=== PATIENT | female | born 1990 | race Caucasian/White ===

== ENCOUNTER → 2019-05-13 11:57 | Outpatient (CLI) | payer OTHER, SELFPAY ==
[2017-02-22 16:59] VITALS: BMI 28.5
[2019-05-13 14:23] LABS: Color, Urine Yellow (Yellow); Glucose, Dipstick Normal (Normal); Ketone-Dipstick Negative (Negative); Leukocyte Esterase-Dipstick Negative /ul (Negative); Nitrite-Dipstick Negative (Negative); Occult Blood-Urine Negative /ul (Negative); Protein-Dipstick Negative (Negative); Urine Bilirubin Dipstick Negative (Negative); Urine Clarity Clear (Clear); Urine Urobilinogen Normal (Normal)
[2019-05-13 14:29] LABS: COTININE Drug Screen Negative (<200 ng/mL)
[2019-05-13 14:30] LABS: Amphetamine Urine VISTA NEGATIVE (<1000 ng/mL); Barbiturate Urine VISTA NEGATIVE (< 200 ng/mL); Benzodiazepine Urine VISTA NEGATIVE (< 200 ng/mL); Cocaine Urine VISTA NEGATIVE (< 300 ng/mL); Ecstacy Urine VISTA NEGATIVE (< 500 ng/mL); Methadone Urine VISTA NEGATIVE (< 300 ng/mL); PCP Urine VISTA NEGATIVE (< 25 ng/mL); THC Urine VISTA NEGATIVE (< 50 ng/mL); Vista UDS pH Range 6
[2019-05-13 14:32] LABS: Absolute Lymphocyte Count 2.97 X10^3/uL (0.83-4.51); Absolute Neutrophil Count 7.2 X10^3/uL (2.0-7.7); Basophil# 0.03 X10^3/uL; Basophil% 0.3 % (0-1); Eosinophil# 0.03 X10^3/uL; Eosinophils% 0.3 % (0-5); Hematocrit 43.3 % (37-47); Hemoglobin 14.4 g/dL (12.0-15.0); Lymphocyte # 2.97 X10^3/ul (4.0); Lymphocyte % 27.4 % (19-41); Mean Corp Hgb Conc 33.3 g/dL (32-36); Mean Corpuscular Hgb 28.9 pg (27.0-32.0); Mean Corpuscular Volume 86.9 fL (81-99); Mean Platelet Vol. 11.2 fl (6.2-12.0); Monocyte# 0.56 X10^3/uL; Monocyte% 5.2 % (0-10); NRBC Flagged by Analyzer 0 % (0-5); Neutrophil # 7.21 X10^3/uL (2.7-7.7); Neutrophil % 66.4 % (47-70); Platelet Count 276 K/mm3 (150-450); RBC Distribution Width CV 13.1 % (11.6-14.6); RBC Distribution Width SD 41.1 fl (35.1-43.9); Red Blood Count 4.98 M/mm3 (4.2-5.4); White Blood Count 10.8 K/mm3 (4.4-11.0)
[2019-05-13 14:35] LABS: Thyroid Stim Hormone (TSH) 2.74 uIU/mL (0.358-3.74); Vitamin D,25 Hydroxy 13.4 ng/mL (29.95-100.01)
[2019-05-13 15:59] LABS: Chlamydia Trachomatis by PCR Negative (Negative); Neisserai gonorrhoeae by PCR Negative (Negative); Probe Check PASS; Sample Adequacy Control PASS; Specimen Processing Control PASS
[2019-05-14 02:21] LABS: Prenatal RPR NONREACTIVE (NONREACTIVE)
[2019-05-14 11:06] LABS: HIV - WCH Non-Reactive (Nonreactive); Hepatitis B Surface Antigen Non-Reactive (Nonreactive); Hepatitis C Antibody Non-Reactive (Nonreactive); Rubella IgG 75.9 IU/mL
[2019-05-15 09:48] LABS: T4 Free Direct 1.16 ng/dL (0.76-1.46)
[2019-05-20 11:35] LABS: HPV APTIMA, High Risk Positive (Negative)
[2019-05-20 11:38] LABS: HPV Reflexed? YES, CHARGE PATIENT
== END ==
LOC: WOBLAB 11:59
PROVIDERS: Visit Provider Obstetrics & Gynecology
DX: O99.281 Endocrine, nutritional and metabolic diseases complicating pregnancy, first trimester (principal); Z3A.00 Weeks of gestation of pregnancy not specified; E03.8 Other specified hypothyroidism; Z12.4 Encounter for screening for malignant neoplasm of cervix; Z11.3 Encounter for screening for infections with a predominantly sexual mode of transmission
CPT/HCPCS: 36415; 80307; 81002; 82306; 84439; 84443; 84481; 85025; 86703; 86762; 86803; 87340; 87491; 87591; 87624; 88175; G0145

== ENCOUNTER → 2019-05-21 10:44 | Outpatient (CLI) | payer OTHER, SELFPAY ==
--- NOTE | 2019-05-21 10:49 | US_ITS ---
STUDY: ULTRASOUND BREAST - RIGHT REASON FOR EXAM: Female, 28 years old. Right breast palpable abnormality for 10 weeks. TECHNIQUE: Axial and longitudinal images of the RIGHT breast were performed with a high resolution ultrasound transducer. # OF IMAGES: 50 COMPARISON: None. FINDINGS: RIGHT Breast: There is no ultrasound abnormality in the right breast to correlate to the palpable area. All 4 quadrants were scanned. No suspicious solid or cystic masses are seen. US/Breast Complete Unilateral IMPRESSION: There is no ultrasound abnormality seen in the right breast to correlate to the palpable area. Further workup with mammography is recommended. ASSESSMENT CATEGORY: BIRADS Category 0: Incomplete. Need additional imaging evaluation. A letter regarding these results will be sent to the patient by the facility within 30 days. Electronically Signed: Mayi Zeng DO at 14:16 EST Tel , Service support ,
== END ==
PROVIDERS: Referring Provider Obstetrics & Gynecology; Visit Provider Obstetrics & Gynecology
DX: Z34.81 Encounter for supervision of other normal pregnancy, first trimester (principal); N63.11 Unspecified lump in the right breast, upper outer quadrant
CPT/HCPCS: 76641

== ENCOUNTER → 2019-10-02 11:05 | Outpatient (CLI) | payer OTHER, SELFPAY ==
[2019-10-02 11:23] LABS: Hematocrit 36.6 % (37-47); Hemoglobin 12.2 g/dL (12.0-15.0); Mean Corp Hgb Conc 33.3 g/dL (32-36); Mean Corpuscular Hgb 29.6 pg (27.0-32.0); Mean Corpuscular Volume 88.8 fL (81-99); Platelet Count 228 K/mm3 (150-450); RBC Distribution Width CV 13.3 % (11.6-14.6); RBC Distribution Width SD 43.5 fl (35.1-43.9); Red Blood Count 4.12 M/mm3 (4.2-5.4); White Blood Count 9.7 K/mm3 (4.4-11.0)
[2019-10-02 11:51] LABS: Vitamin D,25 Hydroxy 23.1 ng/mL
[2019-10-02 11:58] LABS: Free T3 2.2 pg/mL (2.18-3.98); Glucose Challenge Gest 1H 50g 81 mg/dL (70-140); T4 Free Direct 0.83 ng/dL (0.76-1.46); Thyroid Stim Hormone (TSH) 2.44 uIU/mL (0.358-3.74)
== END ==
LOC: LABSPEC 11:08
PROVIDERS: Referring Provider Obstetrics & Gynecology; Visit Provider Obstetrics & Gynecology
DX: Z34.83 Encounter for supervision of other normal pregnancy, third trimester (principal); E55.9 Vitamin D deficiency, unspecified
CPT/HCPCS: 82306; 82950; 84439; 84443; 84481; 85027

== ENCOUNTER → 2019-11-27 12:44 | Outpatient (CLI) | payer OTHER, SELFPAY ==
[2017-02-22 16:59] VITALS: BMI 28.5
--- OUTSIDE RECORDS SUMMARY | 2020-04-19 16:07 | XMS RPT_ITS | CCD ---
:1990 External Reference #:[id number] Author Organization [facility] Care Team Providers Name Role Phone Talia Lu MD Unavailable Andrea JONES, M Unavailable LIA Gómez RN, A Unavailable Unavailable Ronit Lu MD Unavailable Andrea JONES M Unavailable Allergies Reported Allergen Reaction(s) Severity Date of Onset Location Penicillins Critical, Critical 12-17-2016 - [facility] (045 24) Medications Medication Name Sig Date Prescriber Location acetaminophen / OXYCODONE-ACETAMIN 12-20-2016 [facility]ia Sa[facility] oxyCODONE OPHEN 5-325 MG MD Chiu TABS [facility] (92311) tablets by mouth every 6 hours PRN pain OXYCODONE-ACETAMIN OPHEN [id number] Talia Lu MD Clindamycin CLINDAMYCIN HCL [facility] 300 MG CAPS [facility] tablet by mouth (39206) four times daily CLINDAMYCIN HCL [id number] Talia Lu MD sulfamethoxazole / BACTRIM DS 800-160 12-25-2016 Talia reynoso [facility] Surgical trimethoprim MG TABS One tablet MD Anthony s by mouth twice (12811) daily SULFAMETHOXAZOLE-T RIMETHOPRIM [id number] Talia Lu MD BACTRIM DS 800-160 MG TABS One 12-25-2016 Talia Saenz [facility] tablet by mouth twice daily [facility] ([id number]) SULFAMETHOXAZOLE-TRIMETHOPRIM [id number] Talia Lu MD BACTRIM DS 800-160 MG TABS One 12-25-2016 Talia L [facility] tablet by mouth twice daily Ayl armstrong ([id number]) SULFAMETHOXAZOLE-TRIMETHOPRIM [id number] Talia Lu MD BACTRIM DS 800-160 MG TABS One 12-20-2016 - Talia L [facility] tablet by mouth twice daily 07-22-2017 Aly armstrong ([id number]) SULFAMETHOXAZOLE-TRIMETHOPRIM [id number] Talia Lu MD BACTRIM DS 800-160 MG TABS One 12-20-2016 - [facility] mouth twice [id number] SULFAMETHOXAZOLE-TRIMETHOPRIM [id number] Talia Lu MD BACTRIM DS 800-160 MG TABS One 12-20-2016 - [facility] mouth twice [facility]-22-2017 [id number] SULFAMETHOXAZOLE-TRIMETHOPRIM [id number] Talia Lu MD BACTRIM DS 800-160 MG TABS One 12-20-2016 - [facility] tablet by mouth twice daily 07-22-2017 [facility] ([id number][facility] SULFAMETHOXAZOLE-TRIMETHOPRIM [id number] Talia Lu MD BACTRIM DS 800-160 MG TABS One 12-20-2016 - [facility] tablet by mouth twice daily 07-22-2017 [facility] ([id number][facility] SULFAMETHOXAZOLE-TRIMETHOPRIM [id number] Talia Lu MD BACTRIM DS 800-160 MG TABS One 12-20-2016 - [facility] tablet by mouth twice daily 07-22-2017 [facility] ([id number][facility] SULFAMETHOXAZOLE-TRIMETHOPRIM [id number] Talia Lu MD BACTRIM DS 800-160 MG TABS One 12-20-2016 - [facility] tablet by mouth twice daily 07-22-2017 [facility] ([id number]) SULFAMETHOXAZOLE-TRIMETHOPRIM [id number] Talia Lu MD Problems Active Problems Category Problem Name Status Date Location Other nutritional; Overweight Active 12-17-2016 - [facility] endocrine; and metabolic (30 053) disorders Past or Other Problems Category Problem Name Status Date Location Bacterial infection Methicillin resistant Completed 12-20-2016 [facility] Staphylococcus aureus Associ at[facility] (80176) infection Deficiency and other Anemia Completed 12-17-2016 - [facility]by [facility] (942 09) Skin and subcutaneous Abscess Completed 12-17-2016 [facility] Morales rgical tissue infections [facility] ([id number]) Results Result Name Value Range Unit Interpretation Flag Date Location progress on 2019-12 PROGRESS HNO ID: [id number] Normal 12-13-2019 [facility] Author: Brody (Hoang) Loree Mobile ([id number]) Service: ? Author Type: Nurse Practitioner Type: Progress Notes Filed: 12/13/2019 3:52 PM Note Text: Subjective HPI Nontoxic appearing female presents urgent care with a chief complaint of ear pain. Duration of symptoms 2 days. Associated symptoms l eft ear pain and decreased hearing. History of cerumen impaction past. Pa tient denies any recent sick contacts. Patient states last ear is painful 3 out of 10 pain. Patient denies any trauma. Patient denies any chest pa in, pleuritic pain, headache, fevers, visual changes, chest pain , shortness breath, abdominal pain, trismus, sore throat, or change in b owel or bladder habits. Patient is 39 weeks . BP 102/64 Pulse 96 Temp 36.2 ?C (97.2 ?F) (Left Tympanic ) Resp 16 Wt 98.7 kg (217 lb 9.6 oz) LMP 06/26/2017 .Patient presents with: Ear Problem: LEFT ear pain x 2 days PAST MEDICAL HISTORY Diagnosis Date - H/O chlamydia infection 10/19 Treated - PMH - PAST MEDICAL HISTORY OF 02/09/1998 Color Vision - Normal PAST SURGICAL HISTORY Procedure Laterality Date - TONSILLECTOMY HX ALLERGIES Penicillins MEDICATIONS butalb/acetaminophen/caffeine (FIORICET ORAL) Take 1 capsule by mouth every 4 hours. albuterol HFA (PROVENTIL HFA, VENTOLIN HFA) 90 mcg/actuation inhaler Inhale 2 Puffs as instructed every 4 hours as needed. carbamide peroxide (DEBROX) 6.5 % otic solution Use 5 Drops in both ears twice daily. VIT/IRON FUM/FOLIC AC ( 07/08 ORAL) Take by edgardo henriquez. FAMILY HISTORY Problem Relation Age of Onset - Cancer Maternal Grandmother breast and bone - other (Multiple Sclerosis [Other]) Maternal Grandfather - other (Hepatitis C [Other]) Father - other (Liver Transplant [Other]) Unknown half-sister for autoimmune hepatitis Social History Tobacco Use - Smoking status: Former Smoker Last attempt to quit: 02/14/2016 Years since quittin.8 - Smokeless tobacco: Never Used Substance Use Topics - Alcohol use: Yes Alcohol/week: 7.5 standard drinks Types: 3 Cans of Beer (12oz) per week - Drug use: No Review of Systems Constitutional: Negative for chills, fever and malaise/fatig ue. HENT: Positive for hearing loss. Negative for congestion, ea r discharge, ear pain, sinus pain and sore throat. Eyes: Negative for blurred vision, double vision and photoph obia. Respiratory: Negative for cough, sputum production, shortnes s of breath and wheezing. Cardiovascular: Negative for chest pain. Gastrointestinal: Negative for abdominal pain, nausea and vo miting. Genitourinary: Negative. Musculoskeletal: Negative for myalgias. Skin: Negative for itching and rash. Neurological: Negative for dizziness and headaches. Objective Physical Exam Constitutional: She is oriented to person, place, and time a nd well-developed, well-nourished, and in no distress. No distr ess. HENT: Head: Normocephalic and atraumatic. Right Ear: Hearing, external ear and ear canal normal. No dr fox, swelling or tenderness. No mastoid tenderness. No decreased hearing is noted. Left Ear: Hearing, tympanic membrane, external ear and ear c anal normal. No drainage, swelling or tenderness. No mastoid tenderness. Tympanic membrane is not perforated, not erythematous and not bulging . No decreased hearing is noted. Mouth/Throat: Uvula is midline. No trismus in the jaw. No uv lincoln swelling. No oropharyngeal exudate, posterior oropharyngeal edema, pos terior oropharyngeal erythema or tonsillar abscesses. Unable to fully visualize right tympanic membrane due to cer umen impaction. Large amount of cerumen retrieved from left ear c anal with ear curet. Tympanic membrane pearly romero nonperforated. No eryth matthew edema noted. Eyes: Pupils are equal, round, and reactive to light. Conjun ctivae are normal. Right eye exhibits no discharge. Left eye exhibits n o discharge. Neck: Normal range of motion. Neck supple. Cardiovascular: Normal rate, regular rhythm and normal heart sounds. Pulmonary/Chest: Effort normal and breath sounds normal. No accessory muscle usage. No tachypnea. No respiratory distress. She has no wheezes. She has no rales. She exhibits no tenderness. Abdominal: Soft. There is no abdominal tenderness. Musculoskeletal: Normal range of motion. General: No tenderness. Lymphadenopathy: Head (right side): No submental, no submandibular, no tonsil lar, no preauricular, no posterior auricular and no occipital adenop athy present. Head (left side): No submental, no submandibular, no tonsill ar, no preauricular, no posterior auricular and no occipital adenop athy present. She has no cervical adenopathy. Right cervical: No superficial cervical and no posterior cer vical adenopathy present. Left cervical: No superficial cervical and no posterior cerv ical adenopathy present. Neurological: She is alert and oriented to person, place, an d time. Skin: Skin is warm and dry. No rash noted. She is not diapho retic. Nursing note and vitals reviewed. ASSESSMENT/PLAN: 1. Hearing loss due to cerumen impaction, left - ICD9: 389.8 , 380.4, ICD10: H61.22 Large amount of cerumen was retrieved with ear curette from left ear. Patient tolerated procedure well. Patient denied any residua l pain. Patient states spontaneous improvement hearing. Cerumen was hard in nature. Right ear does need irrigated however patient will u se ear wax softening drops prior to this procedure being completed. Frances pedraza was instructed to use ear wax softening drops return in 1 week f or irrigation. Patient was educated on supportive therapies. Patient will f ollow up with primary care provider as needed. Patient was instructed to i mmediately proceed to emergency room for any new, worsening, or symptom s lasting longer than anticipated. The patient's clinical presentation is otherwise unremarkable at this time. Based on exam and clinical findin g, the patient is stable for discharge. Plan of care was discussed with frances pedraza. Patient verbalizes understanding and agrees to plan of care. This no te was generated using The Influence software. It may contain errors in wo rding, punctuation, or spelling. Broyd Ralph APRN.HOANG cnov on 2019-12-13 CNOV Office Visit ([facility]) Normal 12-13-19 Mobile SHAYY Evangelista ([id number]) 1990 [facility] Date Time Provider Department ([id number]) 12/13/19 3:45 PM BRODY RALPH (HOANG) WS During your visit today, we recorded the following informati on about you: Temperature Pulse Respiration Blood pressure 97.2 degrees 96/minute 16/minute 102/64 Weight 98.7 kg Brody Ralph APRN.CNP 12/13/2019 3:52 PM Signed Subjective HPI Nontoxic appearing female presents urgent care with a chief complaint of ear pain. Duration of symptoms 2 days. Associated symptoms left ear pain and decreased hearing. History of cerumen impaction past. Patien t denies any recent sick contacts. Patient states last ear is painful 3 o ut of 10 pain. Patient denies any trauma. Patient denies any chest pain, pl euritic pain, headache, fevers, visual adi nges, chest pain, shortness breath, abdominal pain, trismus, sore throat, or change in bowel or bladder habits. Patient is 39 weeks . BP 102/64 Pulse 96 Temp 36.2 ?C (97.2 ?F) (Left Tympanic ) Resp 16 Wt 98.7 kg (217 lb 9.6 oz) LMP 06/26/2017 .Patient presents with: Ear Problem: LEFT ear pain x 2 days PAST MEDICAL HISTORY Diagnosis Date - H/O chlamydia infection 10/19 Treated - PMH - PAST MEDICAL HISTORY OF 02/09/1998 Color Vision - Normal PAST SURGICAL HISTORY Procedure Laterality Date - TONSILLECTOMY HX ALLERGIES Penicillins MEDICATIONS butalb/acetaminophen/caffeine (FIORICET ORAL) Ta ke 1 capsule by mouth every 4 hours. albuterol HFA (PROVENTIL HFA, VENTOLIN HFA) 90 m cg/actuation inhaler Inhale 2 Puffs as instructed every 4 hours as needed. carbamide peroxide (DEBROX) 6.5 % otic s olution Use 5 Drops in both ears twice daily. VIT/IRON FUM/FOLIC AC ( 07/08 ORAL) Take by edgardo henriquez. FAMILY HISTORY Problem Relation Age of Onset - Cancer Maternal Grandmother breast and bone - other (Multiple Sclerosis [Other]) Maternal Grandfather - other (Hepatitis C [Other]) Father - other (Liver Transplant [Other]) Unknown half-sister for autoimmune hepatitis Social History Tobacco Use - Smoking status: Former Smoker Last attempt to quit: 02/14/2016 Years since quittin.8 - Smokeless tobacco: Never Used Substance Use Topics - Alcohol use: Yes Alcohol/week: 7.5 standard drinks Types: 3 Cans of Beer (12oz) per week - Drug use: No Review of Systems Constitutional: Negative for chills, fever and malaise/fatig ue. HENT: Positive for hearing loss. Negative for congesti on, ear discharge, ear pain, sinus pain and sore throat. Eyes: Negative for blurred vision, double vision and photoph obia. Respiratory: Negative for cough, sputum production, shortn ess of breath and wheezing. Cardiovascular: Negative for chest pain. Gastrointestinal: Negative for abdominal pain, nausea and vo miting. Genitourinary: Negative. Musculoskeletal: Negative for myalgias. Skin: Negative for itching and rash. Neurological: Negative for dizziness and headaches. Objective Physical Exam Constitutional: She is oriented to perso n, place, and time and well-developed, well-nourished, and in no distress. No distress. HENT: Head: Normocephalic and atraumatic. Right Ear: Hearing, external ear and ear canal normal. No drainage, swelling or tenderness. No mastoid tenderness. No decreased hearing is n oted. Left Ear: Hearing, tympanic membrane, external ear and ear canal normal. No drainage, swelling or tenderness. No mastoid ten derness. Tympanic membrane is not perforated, not erythematous and not bulging. No decreas ed hearing is noted. Mouth/Throat: Uvula is midline. No trismus in the jaw. No uvula swelling. No oropharyngeal exudate, posterior oropharyngeal e king, posterior oropharyngeal erythema or tonsillar abscesses. Unable to fully visualize right tympanic membrane due to c erumen impaction. Large amount of cerumen retrieved from l eft ear canal with ear curet. Tympanic membrane pearly romero nonperforated. No erythema edema noted. Eyes: Pupils are equal, round, and react hevaenly to light. Conjunctivae are normal. Right eye exhibits no discharge. Left eye exhibits no discha rge. Neck: Normal range of motion. Neck supple. Cardiovascular: Normal rate, regular rhythm and normal heart sounds. Pulmonary/Chest: Effort normal and breath sounds evelin l. No accessory muscle usage. No tachypnea. No respiratory distress. She has no wheezes. She has no rales. She exhibits no tenderness. Abdominal: Soft. There is no abdominal tenderness. Musculoskeletal: Normal range of motion. General: No tenderness. Lymphadenopathy: Head (right side): No submental, no submandibular, no tonsil lar, no preauricular, no posterior auricular and no occipital adenop athy present. Head (left side): No submental, no submandibular, no tonsill ar, no preauricular, no posterior auricular and no occipital adenop athy present. She has no cervical adenopathy. Right cervical: No superficial cervical and no posterior cer vical adenopathy present. Left cervical: No superficial cervical and no posterior cerv ical adenopathy present. Neurological: She is alert and oriented to person, place, an d time. Skin: Skin is warm and dry. No rash noted. She is not diapho retic. Nursing note and vitals reviewed. ASSESSMENT/PLAN: 1. Hearing loss due to cerumen impaction, left - ICD9: 389 .8, 380.4, ICD10: H61.22 Large amount of cerumen was retrieved with ear c urette from left ear. Patient tolerated procedure well. Patient denied any residual pain. Patient states spontaneous improvement hearing. Cerumen was hard in natur e. Right ear does need irrigated however patient will use ear wax softening drops prior to this procedure being completed. Patient was instructed to use ear wax softening drops return in 1 week for irrigation. Patient was educated on supportive therapies. Patient will foll ow up with primary care provider as needed. Patient was instructed to immediatel y proceed to emergency room for any new, worsening, or symptoms lasting longer than anticipated. The patient's c linical presentation is otherwise un remarkable at this time. Based on exam and clinical finding, the patient is stable for discharge. Pl an of care was discussed with patient. Patient verbalizes understanding and agrees to plan of care. This note was generated using The Influence software. It may contain errors i n wording, punctuation, or spelling. Brody Ralph APRN.HOANG Referring Provider: SELF [[id number]] Allergies As of Date: 12/13/2019 Noted Allergy Reaction PENICILLINS 12/25/2005 4 - Hives Date Reviewed: 12/13/2019 Reviewed by: Ayaka Garcia Ma - Fully Assessed Reason for Visit: Ear Problem [38] Cmt: LEFT ear pain x 2 days Primary Visit Diagnosis:Hearing loss due to cerumen im paction, left [H61.22] Prescriptions as of 12/13/2019 Sig: FIORICET ORAL Take 1 capsule by mouth every* ALBUTEROL SULFATE HFA 90 MCG/* Inhale 2 Puffs as instructed * Patient not taking: Reported on 12/13/2019 CARBAMIDE PEROXIDE 6.5 % EAR * Use 5 Drops in both ears twic * Patient not taking: Reported on 12/13/2019 07/08 ORAL Take by mouth. Problem List As Of Date 12/13/2019 Noted Resolved Chlamydia infection [A74.9] 05/24/2014 Encounter Status:Closed by BRODY RALPH APRN.CNP on progress on 2019-07 PROGRESS HNO ID: [id number] Normal 07-27-2019 [facility] Author: Ezequiel (Bethany.Hoang) LYNDSEY [place] Mobile ([id number]) Service: ? Author Type: Nurse Practitioner Type: Progress Notes Filed: 07/27/2019 1:53 PM Note Text: Chief Complaint Patient presents with: Cough: Pt seen in 07/23 for viral bronchitis, pt given muc inex and albuterol inhaler; pt is 19 wks 3 days ; pt states i s starting to feel better, fatigue has improved but still has intermittent productive cough with light yellow mucus and is being kept awake at [facility] d/t cough; pt states was exposed to bacterial pneumonia HPI Shayy Varghese is a 28 year old female who presents here t octavio for a week history of cough and chest congestion This is an unesta blished patient. No Pcp. This is a new patient to me. Denies any rec ent ER visits or hospitalizations. She was recently diagnosed as be ing and is proximate 19 weeks. Is being followed by the [facility]. Uncomplicated so far. Normal routine OB appointments to this point. States seen in 07/23 for viral bronchitis, pt given mucine x and albuterol inhaler; pt is 19 wks 3 days ; States is s tarting to feel better, fatigue has improved but still has intermittent productive cough with light yellow mucus and is being kept awake at [facility] d/t cough; pt states was exposed to bacterial pneumonia No fever or chills. Still has a cough and it is productive. No vomiting or diarrhea. No earaches. Has a history of cerumen impaction . Past medical history, appointments, medications, allergies r mauraiewed. Previous Medical History PAST MEDICAL HISTORY Diagnosis Date - H/O chlamydia infection 10/19 Treated - PMH - PAST MEDICAL HISTORY OF 02/09/1998 Color Vision - Normal Previous Surgical History PAST SURGICAL HISTORY Procedure Laterality Date - TONSILLECTOMY HX Family History FAMILY HISTORY Problem Relation Age of Onset - Cancer Maternal Grandmother breast and bone - other (Multiple Sclerosis [Other]) Maternal Grandfather - other (Hepatitis C [Other]) Father - other (Liver Transplant [Other]) Unknown half-sister for autoimmune hepatitis Patient Allergies ALLERGIES Allergen Reactions - Penicillins Hives Current Medications Current Outpatient Medications on File Prior to Visit Medication Sig - butalb/acetaminophen/caffeine (FIORICET ORAL) Take 1 capsu le by mouth every 4 hours. - albuterol HFA (PROVENTIL HFA, VENTOLIN HFA) 90 mcg/actuati on inhaler Inhale 2 Puffs as instructed every 4 hours as needed. - guaiFENesin (MUCINEX) 600 mg 12 hr tablet Take 1 tablet by mouth twice daily for 10 days. - VIT/IRON FUM/FOLIC AC ( 07/08 ORAL) Take by mouth. - carbamide peroxide (DEBROX) 6.5 % otic solution Use 5 Drop s in both ears twice daily. (Patient not taking: Reported on 07/23/2019 ) No current facility-administered medications on file prior t o visit. Social History Social History Tobacco Use - Smoking status: Former Smoker Last attempt to quit: 02/14/2016 Years since quittin.4 - Smokeless tobacco: Never Used Substance Use Topics - Alcohol use: Yes Alcohol/week: 7.5 standard drinks Types: 3 Cans of Beer (12oz) per week - Drug use: No Review of Symptoms GENERAL: No weight loss. + for malaise. No fevers HEENT: Negative for frequent headaches No eye discharge or redness No earaches or drainage No sore throat, difficulty swallowing, mouth lesions, or jere rseness, Nose POS for congestion. No nasal discharge NECK: Negative for lumps, pain or significant neck swelling RESPIRATORY: Cough; dry/wet, productive. No wheezing, SOB, D ifficulty breathing. CARDIOVASCULAR: Negative for chest pain GI: No vomiting, or diarrhea. + for nausea MUSCULOSKELETAL: Negative for muscle aches, bodyaches or kane n. SKIN: Negative for lesions, rash, and itching Neuro: No lightheadedness or dizziness EXAM: BP 112/70 Pulse 85 Temp 37 ?C (98.6 ?F) Resp 16 Wt 8 8.5 kg (195 lb) SpO2 98% General Appearance: No well appearing. Alert, in no acute di stress, well-hydrated, well nourished. Obese Skin: Skin color, texture, turgor normal, no suspicious rash es or lesions. Head: Normocephalic, no masses, lesions, tenderness or abnor malities. Eyes: Anicteric sclera. No redness or drainage. Ears: External ears normal, TM's clear on the left, adequate light reflex. TM's not bulging. Unable to visualize the right TM fully due to wax. Cerumen bilaterally, amount moderate Nose/Sinuses: Nares normal, septum midline Mucosa normal Clear nasal drainage No sinus tenderness. Oropharynx: Lips, mucosa, and tongue normal, teeth and gums normal Oropharynx reddened. Tonsils present and nonreddened. Neck: Supple Lymph Nodes: No cervical, supraclavicular, pre/post-auricula r, or submandibular lymphadenopathy Lungs: Wheezing in all lung talavera. No rhonchi, rales. Heart: RRR without murmur, gallop, or rubs. Extremities: No deformities, edema, skin discoloration, club johnny or cyanosis. Psych: Attitude - cooperative, easily engaged in conversatio n Appearance - normal, hygiene and grooming appropriate Affect - euthymic, normal mood Mental status: Alert, attentive. Speech is clear and fluent with good repetition, comprehension Coordination: There are no abnormal or extraneous movements. Gait/Stance: Posture is normal. Gait is steady with normal s teps Health Maintenance List HPV VACCINE(2 - Female 2-dose series) due on 08/16/2007 PAP TESTING due on 2013 DTAP,TDAP,TD(7 - Td) due on 02/01/2016 INFLUENZA(1) due on 03/08/2019 Data reviewed Last 5 Encounter BP Readings: Date: BP: 07/27/2019 112/70 07/23/2019 118/68 09/16/2018 112/72 01/08/2018 112/72 07/16/2017 112/70 BMI Readings from Last 5 Encounters: 02/02/08 : 26.44 kg/m? (92 %, Z= 1.40)* 02/13/07 : 24.93 kg/m? (90 %, Z= 1.28)* 01/31/06 : 22.77 kg/m? (85 %, Z= 1.03)* * Growth percentiles are based on CDC (Girls, 2-20 Years) da ta. Last 5 Encounter Wt Readings: Date: Wt: 07/27/2019 88.5 kg (195 lb) 07/23/2019 89.4 kg (197 lb) 09/16/2018 91.4 kg (201 lb 9.6 oz) 01/08/2018 88 kg (194 lb) 07/16/2017 84.4 kg (186 lb) Medication and allergy list reviewed, reconciled and updated . ASSESSMENT/PLAN: 1. Acute bronchitis, unspecified organism - ICD9: 466.0, ICD 10: J20.9 (primary diagnosis) Acute bronchitis versus community acquired pneumonia Given she's unable to complete a chest x-ray today. Clinically diagnose and treat empirically She has allergy to penicillins but has tolerated Omnicef Treat with Omnicef for 10 days. May continue to use albuterol inhaler as needed. Self Care instructions: Avoid irritants in the air. Avoid chemicals, fumes, and dust . Gargle with mouthwash or warm salt water as directed. Suck on throat lozenges or hard candy. Use a cold or warm vaporizer or humidifier to ease your jono thing. Rest for at least 2 days and then as needed to decrease tire dness and weakness. Use petroleum based jelly around your nostrils to decrease i rritation from blowing your nose. acetaminophen help to bring down a fever or decrease pain. Patient is educated and informed to expect progressive impro vement over the next 3-7 days. Patient should return to clinic or seek c are in the emergency room for the following: Fever over 100.5 but does not reduce with antipyretics, inability to tolerate oral fluids, persis tent nausea vomiting and/or diarrhea, shaking chills or rigors, lighthea dedness or dizziness, inability to maintain fluid hydration, or any oth er concerns of worsening condition. Patient verbalizes understanding. - CEFDINIR 300 MG CAPSULE 2. Cough - ICD9: 786.2, ICD10: R05 Plan as in #1 - CEFDINIR 300 MG CAPSULE 3. 19 weeks gestation of - ICD9: V22.2, ICD10: Z3A .19 Continue with routine OB appointments. Ezequiel Adair DNP.HOANG This note was completed with Song[employer] dictation software. Note was reviewed for accuracy. There may be minor misspellings or gr ammar miscues with Songtr[employer] Dictation. Allei [facility] [phone] cnov on 2019-07-27 CNOV Office Visit (FAMPWS) Normal 07-27-[address] [place] [address] [facility] SHAYY VARGHESE ([id number]) 1990 [facility] Date Time Provider Department ([id number]) 07/27/19 11:40 AM EZEQUIEL ADAIR (BETHANY.[employer]) FAMPWS During your visit today, we recorded the following informati on about you: Temperature Pulse Respiration Blood pressure 98.6 degrees 85/minute 16/minute 112/70 Weight 88.5 kg Ezequiel Adair DNP.[employer], PRISON GUARD.[employer] 07/27/2019 1:53 PM Signed Chief Complaint Patient presents with: Cough: Pt seen in 07/23 for viral bron chitis, pt given mucinex and albuterol inhaler; pt is 19 wks 3 days ; pt states is st arting to feel better, fatigue has improved but still has intermittent productive cough with light yellow mucus and is being kept awake at night d/t cough; pt states was exposed to bacterial pneumonia HPI Shayy Varghese is a 28 year old female who presents here today for a week history of cough and chest congestion This is an unestablish ed patient. No Pcp. This is a new patient to me. Denies any recent ER visit s or hospitalizations. She was recently diagnosed as being pregna nt and is proximate 19 weeks. Is being followed by the [facility] health [facility]. Uncomplicated so far. Normal ro utine OB appointments to this point. States seen in 07/23 for viral bronchitis, pt given muci nex and albuterol inhaler; pt is 19 wks 3 days ; States is starting to feel better, fatigue has improved but still has intermittent productive cough with light yellow mucus and is being kept awake at night d/t cough; pt states was exposed to bacterial pneumonia No fever or chills. Still has a cough and it is productive. No vomiting or diarrhea. No earaches. Has a history of cerumen impaction. Past medical history, appointments, medications, allergies r eviewed. Previous Medical History PAST MEDICAL HISTORY Diagnosis Date - H/O chlamydia infection 10/19 Treated - [facility] - PAST MEDICAL HISTORY OF 02/09/1998 Color Vision - Normal Previous Surgical History PAST SURGICAL HISTORY Procedure Laterality Date - TONSILLECTOMY HX Family History FAMILY HISTORY Problem Relation Age of Onset - Cancer Maternal Grandmother breast and bone - other (Multiple Sclerosis [Other]) Maternal Grandfather - other (Hepatitis C [Other]) Father - other (Liver Transplant [Other]) Unknown half-sister for autoimmune hepatitis Patient Allergies ALLERGIES Allergen Reactions - Penicillins Hives Current Medications Current Outpatient Medications on File Prior to Visit Medication Sig - butalb/acetaminophen/caffe ine (FIORICET ORAL) Take 1 capsule by mouth every 4 hours. - albuterol HFA (PROVENTIL H FA, VENTOLIN HFA) 90 mcg/actuation inhaler Inhale 2 Puffs as instructed every 4 hours as needed. - guaiFENesin (MUCINEX) 600 mg 12 hr tab let Take 1 tablet by mouth twice daily for 10 days. - VIT/IRON FUM/FOLIC AC ( 07/08 ORAL) Take by mouth. - carbamide peroxide (DEBROX) 6.5 % otic solution Use 5 Drop s in both ears twice daily. (Patient not taking: Reported on 07/23/2019 ) No current facility-administered medications on file prior t o visit. Social History Social History Tobacco Use - Smoking status: Former Smoker Last attempt to quit: 02/14/2016 Years since quittin.4 - Smokeless tobacco: Never Used Substance Use Topics - Alcohol use: Yes Alcohol/week: 7.5 standard drinks Types: 3 Cans of Beer (12oz) per week - Drug use: No Review of Symptoms GENERAL: No weight loss. + for malaise. No fevers HEENT: Negative for frequent headaches No eye discharge or redness No earaches or drainage No sore throat, difficulty swallowing, mouth lesions, or jere rseness, Nose POS for congestion. No nasal discharge NECK: Negative for lumps, pain or significant neck swelling RESPIRATORY: Cough; dry/wet, productive. No wheezing, SOB, D ifficulty breathing. CARDIOVASCULAR: Negative for chest pain GI: No vomiting, or diarrhea. + for nausea MUSCULOSKELETAL: Negative for muscle aches, bodyaches or kane n. SKIN: Negative for lesions, rash, and itching Neuro: No lightheadedness or dizziness EXAM: BP 112/70 Pulse 85 Temp 37 ?C (98.6 ?F) Resp 16 Wt 88.5 kg (195 lb) SpO2 98% General Appearance: No well appearing. Alert, in no acute di stress, well-hydrated, well nourished. Obese Skin: Skin color, texture, turgor normal, no suspicious rash es or lesions. Head: Normocephalic, no masses, lesions, tenderness or abnor malities. Eyes: Anicteric sclera. No redness or drainage. Ears: External ears normal, TM's clear on the left, adequate light reflex. TM's not bulging. Unable to visualize the right TM fully due to w ax. Cerumen bilaterally, amount moderate Nose/Sinuses: Nares normal, septum midline Mucosa normal Clear nasal drainage No sinus tenderness. Oropharynx: Lips, mucosa, and tongue normal, teeth and gums normal Oropharynx reddened. Tonsils present and nonreddened. Neck: Supple Lymph Nodes: No cervical, morales praclavicular, pre/post-auricular, or submandibular lymphadenopathy Lungs: Wheezing in all lung talavera. No rhonchi, rales. Heart: RRR without murmur, gallop, or rubs. Extremities: No deformities, edema, skin discolo ration, clubbing or cyanosis. Psych: Attitude - cooperative, easily engaged in conversatio n Appearance - normal, hygiene and grooming appropriate Affect - euthymic, normal mood Mental status: Alert, attentive. Speech is clear and fluent with good repetition, comprehension Coordination: There are no abnormal or extraneous movements. Gait/Stance: Posture is normal. Gait is steady with normal s teps Health Maintenance List HPV VACCINE(2 - Female 2-dose series) due on 08/16/2007 PAP TESTING due on 2013 DTAP,TDAP,TD(7 - Td) due on 02/01/2016 INFLUENZA(1) due on 03/08/2019 Data reviewed Last 5 Encounter BP Readings: Date: BP: 07/27/2019 112/70 07/23/2019 118/68 09/16/2018 112/72 01/08/2018 112/72 07/16/2017 112/70 BMI Readings from Last 5 Encounters: 02/02/08 : 26.44 kg/m? (92 %, Z= 1.40)* 02/13/07 : 24.93 kg/m? (90 %, Z= 1.28)* 01/31/06 : 22.77 kg/m? (85 %, Z= 1.03)* * Growth percentiles are based on CDC (Girls, 2-20 Years) agustin garza. Last 5 Encounter Wt Readings: Date: Wt: 07/27/2019 88.5 kg (195 lb) 07/23/2019 89.4 kg (197 lb) 09/16/2018 91.4 kg (201 lb 9.6 oz) 01/08/2018 88 kg (194 lb) 07/16/2017 84.4 kg (186 lb) Medication and allergy list reviewed, reconciled and updated . ASSESSMENT/PLAN: 1. Acute bronchitis, unspecified organis m - ICD9: 466.0, ICD10: J20.9 (primary diagnosis) Acute bronchitis versus community acquired pneumonia Given she's unable to complete a chest x-ray today. Clinically diagnose and treat empirically She has allergy to penicillins but has tolerated Omnicef Treat with Omnicef for 10 days. May continue to use albuterol inhaler as needed. Self Care instructions: Avoid irritants in the air. Avoid chemicals, fumes, and dust . Gargle with mouthwash or warm salt water as directed. Suck on throat lozenges or hard candy. Use a cold or warm vaporizer or humidifier to ease your jono thing. Rest for at least 2 days and then as needed to decrease tiredness and weakness. Use petroleum based jelly around your nostrils to decrease i rritation from blowing your nose. acetaminophen help to bring down a fever or decrease pain. Patient is educated and informed to expect progressive imp rovement over the next 3-7 days. Patient should return to clinic or seek care in the emergency room for the following: Feve r over 100.5 but does not reduce with antipyretics, inability to tolerate oral fluids, persi stent nausea vomiting and/or diarrhea, shaking chills or rigors, lightheadedness or diz ziness, inability to maintain fluid hydration, or any other concerns of worsening conditio n. Patient verbalizes understanding. - CEFDINIR 300 MG CAPSULE 2. Cough - ICD9: 786.2, ICD10: R05 Plan as in #1 - CEFDINIR 300 MG CAPSULE 3. 19 weeks gestation of - ICD9: V22.2, ICD10: Z3A .19 Continue with routine OB appointments. Ezequiel Adair DNP.[employer] This note was completed with [employer] software. Note was reviewed for accuracy. There may be minor misspellings or gramm ar miscues with Songtradr Dictation. Zavalla [facility] [phone] Ezequiel Adair DNP.[employer], PRISON GUARD.[employer] 07/27/2019 12:05 PM Signed Self Care instructions: Avoid irritants in the air. Avoid chemicals, fumes, and dust . Gargle with mouthwash or warm salt water as directed. Suck on throat lozenges or hard candy. Use a cold or warm vaporizer or humidifier to ease your jono thing. Rest for at least 2 days and then as needed to decrease tiredness and weakness. Use petroleum based jelly around your nostrils to decrease i rritation from blowing your nose. acetaminophen help to bring down a fever or decrease pain. Patient is educated and informed to expect progressive imp rovement over the next 3-7 days. Patient should return to clinic or seek care in the emergency room for the following: Feve r over 100.5 but does not reduce with antipyretics, inability to tolerate oral fluids, persi stent nausea vomiting and/or diarrhea, shaking chills or rigors, lightheadedness or diz ziness, inability to maintain fluid hydration, or any other concerns of worsening conditio n. Patient verbalizes understanding. Healthy Habits: Recommend regular physical activity, nutrition and healthy e ating habits. Consume a variety of foods every day focusing on fruit s, vegetables and lean meats). Eat foods low in fat, saturated fat and cholesterol. Eat a limited amount of salt and sodium. Drink adequate amounts of water and limit sugary drinks. Exercise portion control in meal selection. Establish a mindset of a wellness approach to health. Thank you for allowing me to provide you r care today. I look forward to seeing you again and maintaining your health. Ezequiel Adair DNP.[employer] Referring Provider: SELF [[id number]] Allergies As of Date: 07/27/2019 Noted Allergy Reaction PENICILLINS 12/25/2005 4 - Hives Date Reviewed: 07/27/2019 Reviewed by: Heather Meehan MA - Fully Assessed Reason for Visit: Cough [28] Cmt: Pt seen in 07/23 for viral bronchitis, pt given mucinex and albuterol inhaler; pt is 19 wks 3 days ; pt states is starting to feel better, fatigue has improved but still has intermittent productive cough with light yellow mucus and is being kept awake at night d/t cough; pt states was exposed to bacterial pneumonia Primary Visit Diagnosis:Acute bronchitis, unspecified organi sm [J20.9] Other Visit Diagnoses:Cough [R05] 19 weeks gestation of [Z3A.19] Order(s):cefdinir (OMNICEF) 300 mg capsuleTake 1 capsule by mouth twice daily for 10 days.Disp: 20 capsuleRfl: 0 Prescriptions as of 07/27/2019 Sig: CEFDINIR 300 MG CAPSULE Take 1 capsule by mouth twice* FIORICET ORAL Take 1 capsule by mouth every* ALBUTEROL SULFATE HFA 90 MCG/* Inhale 2 Puffs as instructed * MUCINEX 600 MG TABLET, EXTEND* Take 1 tablet by mouth twice * CARBAMIDE PEROXIDE 6.5 % EAR * Use 5 Drops in both ears twic * 07/08 ORAL Take by mouth. Problem List As Of Date 07/27/2019 Noted Resolved Chlamydia infection [A74.9] 05/24/2014 Other instructions from your clinician: Self Care instructions: Avoid irritants in the air. Avoid chemicals, fumes, and dust . Gargle with mouthwash or warm salt water as directed. Suck on throat lozenges or hard candy. Use a cold or warm vaporizer or humidifier to ease your jono thing. Rest for at least 2 days and then as needed to decrease tire dness and weakness. Use petroleum based jelly around your nostrils to decrease i rritation from blowing your nose. acetaminophen help to bring down a fever or decrease pain. Patient is educated and informed to expect progressive impro vement over the next 3-7 days. Patient should return to clinic or seek c are in the emergency room for the following: Fever over 100.5 but does not reduce with antipyretics, inability to tolerate oral fluids, persis tent nausea vomiting and/or diarrhea, shaking chills or rigors, lighthea dedness or dizziness, inability to maintain fluid hydration, or any oth er concerns of worsening condition. Patient verbalizes understanding. Healthy Habits: Recommend regular physical activity, nutrition and healthy e ating habits. Consume a variety of foods every day focusing on fruits, veg etables and lean meats). Eat foods low in fat, saturated fat and cholesterol. Eat a limited amount of salt and sodium. Drink adequate amounts of water and limit sugary drinks. Exercise portion control in meal selection. Establish a mindset of a wellness approach to health. Thank you for allowing me to provide your care today. I look forward to seeing you again and maintaining your health. Ezequiel Adair DNP.[employer] Prescriptions ordered this encounter Disp Refills Start End CEFDINIR 300 MG CAPSULE 20 c* 0 07/27/2019 08/06/2019 Cmt: Patient had tolerated Cefdinir before. Route: ORAL Sig: Take 1 capsule by mouth twice daily for 10 days. Encounter Status:Closed by EZEQUIEL ADAIR DNP, CNP on 07/27/19 progress on 2019-07 PROGRESS HNO ID: [id number] Normal 07-23-2019 [facility]: [id number] Service: ? Author Type: Nurse Practitioner Type: Progress Notes Filed: 07/23/2019 3:57 PM Note Text: Subjective HPI Shayy Varghese is a 28 year old female who presents wi th cough, chest congestion and shortness of breath for the past 5 days . She has not had a fever. She is 19 weeks . Review of Systems Constitutional: Negative. Negative for fever. HENT: Positive for congestion and sore throat. Respiratory: Positive for cough, sputum production and short ness of breath. Cardiovascular: Negative. Gastrointestinal: Negative. Negative for diarrhea, nausea an d vomiting. Neurological: Positive for headaches. BP 118/68 Pulse 85 Temp 36.7 ?C (98 ?F) Resp 18 Wt 8 9.4 kg (197 lb) SpO2 98% PAST MEDICAL HISTORY Diagnosis Date - H/O chlamydia infection 10/19 Treated - [facility] - PAST MEDICAL HISTORY OF 02/09/1998 Color Vision - Normal PAST SURGICAL HISTORY Procedure Laterality Date - TONSILLECTOMY HX ALLERGIES Penicillins MEDICATIONS butalb/acetaminophen/caffeine (FIORICET ORAL) Take 1 capsule by mouth every 4 hours. VIT/IRON FUM/FOLIC AC ( 07/08 ORAL) Take by m out. carbamide peroxide (DEBROX) 6.5 % otic solution Use 5 Drops in both ears twice daily. FAMILY HISTORY Problem Relation Age of Onset - Cancer Maternal Grandmother breast and bone - other (Multiple Sclerosis [Other]) Maternal Grandfather - other (Hepatitis C [Other]) Father - other (Liver Transplant [Other]) Unknown half-sister for autoimmune hepatitis Social History Tobacco Use - Smoking status: Former Smoker Last attempt to quit: 02/14/2016 Years since quittin.4 - Smokeless tobacco: Never Used Substance Use Topics - Alcohol use: Yes Alcohol/week: 7.5 standard drinks Types: 3 Cans of Beer (12oz) per week - Drug use: No Objective Physical Exam Constitutional: She is well-developed, well-nourished, and i n no distress. HENT: Right Ear: Tympanic membrane, external ear and ear canal nor mal. Left Ear: Tympanic membrane, external ear and ear canal norm al. Nose: Nose normal. Mouth/Throat: Uvula is midline, oropharynx is clear and mois t and mucous membranes are normal. No oropharyngeal exudate, posterior or opharyngeal edema or posterior oropharyngeal erythema. Neck: Neck supple. Cardiovascular: Normal rate, regular rhythm and normal heart sounds. Pulmonary/Chest: Effort normal. No respiratory distress. She has wheezes (few, scattered). She has no rales. Lymphadenopathy: She has no cervical adenopathy. Neurological: She is alert. Skin: Skin is warm and dry. No rash noted. No erythema. Nursing note and vitals reviewed. ASSESSMENT/PLAN: 1. Viral bronchitis - ICD9: 466.0, ICD10: J20.8 - ALBUTEROL SULFATE HFA 90 MCG/ACTUATION AEROSOL INHALER- us e for shortness of breath - INHALATIONAL SPACING DEVICE - MUCINEX 600 MG TABLET, EXTENDED RELEASE - Follow-up with your PCP in 3-5 days for recheck. - Discussed red flags and need for immediate medical evaluat ion if any occur. - Discussed supportive care treatment with fluids, rest and analgesia. - Discussed expected course of illness Frieda Proctor APRN.HOANG miramontes on 2019-07-23 CNOV Office Visit (UCWSTR) Normal 07-23-19 Mobile SHAYY Evangelista ([id number]) 1990 [facility] Date Time Provider Department ([id number]) 07/23/19 3:30 PM FRIEDA PROCTOR (HOANG) WS During your visit today, we recorded the following informati on about you: Temperature Pulse Respiration Blood pressure 98 degrees 85/minute 18/minute 118/68 Weight 89.4 kg Frieda Porctor APRN.HOANG 07/23/2019 3:57 PM Signed Subjective HPI Shayy Varghese is a 28 year old female who presents with cough, chest congestion and shortness of breath for the past 5 days. She has not had a fever. She is 19 weeks . Review of Systems Constitutional: Negative. Negative for fever. HENT: Positive for congestion and sore throat. Respiratory: Positive for cough, sputum production and holly rtness of breath. Cardiovascular: Negative. Gastrointestinal: Negative. Negative for diarrhea, nausea an d vomiting. Neurological: Positive for headaches. BP 118/68 Pulse 85 Temp 36.7 ?C (98 ?F) Resp 18 Wt 8 9.4 kg (197 lb) SpO2 98% PAST MEDICAL HISTORY Diagnosis Date - H/O chlamydia infection 10/19 Treated - [facility] - PAST MEDICAL HISTORY OF 02/09/1998 Color Vision - Normal PAST SURGICAL HISTORY Procedure Laterality Date - TONSILLECTOMY HX ALLERGIES Penicillins MEDICATIONS butalb/acetaminophen/caffeine (FIORICET ORAL) Ta ke 1 capsule by mouth every 4 hours. VIT/IRON FUM/FOLIC AC ( 07/08 ORAL) Take by edgardo henriquez. carbamide peroxide (DEBROX) 6.5 % otic s olution Use 5 Drops in both ears twice daily. FAMILY HISTORY Problem Relation Age of Onset - Cancer Maternal Grandmother breast and bone - other (Multiple Sclerosis [Other]) Maternal Grandfather - other (Hepatitis C [Other]) Father - other (Liver Transplant [Other]) Unknown half-sister for autoimmune hepatitis Social History Tobacco Use - Smoking status: Former Smoker Last attempt to quit: 02/14/2016 Years since quittin.4 - Smokeless tobacco: Never Used Substance Use Topics - Alcohol use: Yes Alcohol/week: 7.5 standard drinks Types: 3 Cans of Beer (12oz) per week - Drug use: No Objective Physical Exam Constitutional: She is well-developed, well-nourished, and i n no distress. HENT: Right Ear: Tympanic membrane, external ear and ear canal nor mal. Left Ear: Tympanic membrane, external ear and ear canal norm al. Nose: Nose normal. Mouth/Throat: Uvula is midline, oropharynx is clear and mois t and mucous membranes are normal. No oropharyngeal exudate, posterior oropharyngeal edema or posterior oropharyngeal erythema. Neck: Neck supple. Cardiovascular: Normal rate, regular rhythm and normal heart sounds. Pulmonary/Chest: Effort normal. No respi ratory distress. She has wheezes (few, scattered). She has no rales. Lymphadenopathy: She has no cervical adenopathy. Neurological: She is alert. Skin: Skin is warm and dry. No rash noted. No erythema. Nursing note and vitals reviewed. ASSESSMENT/PLAN: 1. Viral bronchitis - ICD9: 466.0, ICD10: J20.8 - ALBUTEROL SULFATE HFA 90 MCG/ACTUATION AEROSOL INHALER- use for shortness of breath - INHALATIONAL SPACING DEVICE - MUCINEX 600 MG TABLET, EXTENDED RELEASE - Follow-up with your PCP in 3-5 days for recheck. - Discussed red flags and need for immediate med ical evaluation if any occur. - Discussed supportive care treatment with fluids, rest and analgesia. - Discussed expected course of illness Frieda Proctor APRN.HOANG Proctor APRN.HOANG 07/23/2019 3:49 PM Addendum ASSESSMENT/PLAN: 1. Viral bronchitis - ICD9: 466.0, ICD10: J20.8 - ALBUTEROL SULFATE HFA 90 MCG/ACTUATION AEROSOL INHALER- use for shortness of breath - INHALATIONAL SPACING DEVICE - MUCINEX 600 MG TABLET, EXTENDED RELEASE - Follow-up with your PCP in 3-5 days if symptom s have not improved or sooner if symptoms worsen - Discussed red flags and need for immediate med ical evaluation if any occur. - Discussed supportive care treatment with fluids, rest and analgesia. - Discussed expected course of illness Frieda Proctor APRN.[employer] [facility] ACUTE BRONCHITIS: You have acute bronchitis. This means the airway passages in your lungs are inflamed. Bronchitis may be caused by viruses or bacteria. Inhaling cigarette smoke will always make it worse. Exposure to irritating ch emicals or second hand smoke as well as allergies can contribute t o bronchitis. Repeat episodes of bronchitis may cause lifelong lung problems. Acute bronchitis is usually treated with rest, fluids, cough medicine, and possibly antibiotics or inhaled medicine to open up th e small airways. It is very important that you avoid smoke and drink increase d amounts of fluids. A cool air vaporizer can help thin bronchi al secretions. This makes it easier to cough and clear your chest. If you are a cigarette smoker, c onsider using nicotine gum or skin patches to help you withdraw. Recovery from bronchitis is often slow, but you should sta rt feeling better after 2-3 days of treatment. Please call your doctor or retu rn here if you have any of the following symptoms: - Increased fever, chills, or chest pain. - Severe shortness of breath or bloody sputum. - Do not improve after 3 days of proper treatment. Referring Provider: SELF [[id number]] Allergies As of Date: 07/23/2019 Noted Allergy Reaction PENICILLINS 12/25/2005 4 - Hives Date Reviewed: 07/23/2019 Reviewed by: Frieda ([facility]) Hitesh - Fully Assessed Reason for Visit: Cough [28] Cmt: x 5 days cough, chest congestion and shortne ss of breath Primary Visit Diagnosis:Viral bronchitis [J20.8] Order(s):albuterol HFA (PROVENTIL HFA, VENTOLIN HFA) 90 mcg/ actuation inhalerInhale 2 Puffs as instructed every 4 hours as needed. Disp: 1 InhalerRfl: 0 Inhalational Spacing Device spcr1 Device one time only for 1 dose.Disp: 1 EachRfl: 0 guaiFENesin (MUCINEX) 600 mg 12 hr tabletTake 1 tablet by [facility] twice daily for 10 days.Disp: 20 tabletRfl: 0 Prescriptions as of 07/23/2019 Sig: FIORICET ORAL Take 1 capsule by mouth every* 07/08 ORAL Take by mouth. ALBUTEROL SULFATE HFA 90 MCG/* Inhale 2 Puffs as instructed * INHALATIONAL SPACING DEVICE 1 Device one time only for 1 * MUCINEX 600 MG TABLET, EXTEND* Take 1 tablet by mouth twice * CARBAMIDE PEROXIDE 6.5 % EAR * Use 5 Drops in both ears twic * Patient not taking: Reported on 07/23/2019 Problem List As Of Date 07/23/2019 Noted Resolved Chlamydia infection [A74.9] 05/24/2014 Other instructions from your clinician: ASSESSMENT/PLAN: 1. Viral bronchitis - ICD9: 466.0, ICD10: J20.8 - ALBUTEROL SULFATE HFA 90 MCG/ACTUATION AEROSOL INHALER- us e for shortness of breath - INHALATIONAL SPACING DEVICE - MUCINEX 600 MG TABLET, EXTENDED RELEASE - Follow-up with your PCP in 3-5 days if symptoms have not i mproved or sooner if symptoms worsen - Discussed red flags and need for immediate medical evaluat ion if any occur. - Discussed supportive care treatment with fluids, rest and analgesia. - Discussed expected course of illness Frieda Proctor APRN.[employer] [facility] ACUTE BRONCHITIS: You have acute bronchitis. This means the airway passages in your lungs are inflamed. Bronchitis may be caused by viruses or bacteri a. Inhaling cigarette smoke will always make it worse. Exposure to irrit ating chemicals or second hand smoke as well as allergies can cont ribute to bronchitis. Repeat episodes of bronchitis may cause lifelong lung problems. Acute bronchitis is usually treated with rest, fluids, cough medicine, and possibly antibiotics or inhaled medicine to open up the smal l airways. It is very important that you avoid smoke and drink increased a gilmar of fluids. A cool air vaporizer can help thin bronchial secreti ons. This makes it easier to cough and clear your chest. If you are a cigarette smoker, consider using nicotine gum or skin patches to help you withdraw. Recovery from bronchitis is often slow, but you should start feeling better after 2-3 days of treatment. Please call your doctor or return here if you have any of the following symptoms: - Increased fever, chills, or chest pain. - Severe shortness of breath or bloody sputum. - Do not improve after 3 days of proper treatment. Prescriptions ordered this encounter Disp Refills Start End ALBUTEROL SULFATE HFA 90 MCG/ACTUATI* 1 In* 0 07/23/2019 Cmt: Generic or brand: dispense inhaler preferre d by patient/insurance unless EDUARDO flag is selected. Route: INHALATION Sig: Inhale 2 Puffs as instructed every 4 hours as needed. INHALATIONAL SPACING DEVICE 1 Ea* 0 07/23/2019 07/23/2019 Route: Misc Si Device one time only for 1 dose. MUCINEX 600 MG TABLET, EXTENDED RELE* 20 t* 0 07/23/2019 Route: ORAL Sig: Take 1 tablet by mouth twice daily for 10 days. PREDNISONE 20 MG TABLET 3 ta* 0 07/23/2019 07/23/2019 Route: ORAL Sig: Take 1 tablet by mouth once daily for 3 days. Take swetha y with food. Medications Discontinued During This Encounter predniSONE (DELTASONE) 20 mg tablet 3 ta* 0 07/23/2019 1/16/2 020 Route: ORAL Sig: Take 1 tablet by mouth once daily for 3 days. Take swetha y with food. Disc: Reason for discontinue is not on file. Disposition: Return if symptoms worsen or fail to improve. Follow-up and Disposition History Recorded Encounter Status:Closed by FRIEDA PROCTOR on 07/23/19 varis on 2018-04-[address] Pos Normal 04-18-2018 [facility] ([place]) ([id number]) Comment: Result Comment: This immune status assay detects antibody to Varicella Zostervirus. Interpret resul ts in conjunction with clinical history. Positive: Reactive for antib odies to Varicella IgG. If clinically indicated, order Varicella IGM to rule out recent infection. Equivocal: Equivocal for antibodies to Varicella IgG. Suggest repeat testing in 10-14 days. Negative: Non-reactive for antibodies to Varicella IgG.Sera will be held 4-6 weeks if further testing is required. Performed By: #### HBSAB, HI RIS ####[place] [id number] [place] [id number] hbsab on 2018-04-17 Hep B Surf Ab 151.0 mIU/mL Normal 04-17-2018 [facility] ([place]) ([id number]) Comment: Result Comment: Anti-HBs Int erpretation: 0 to <5.0 mIU/mL Negative Patient is considered to be not immu ne to infection with HBV. >/= 5.0 and <12.0 mIU/mL Equivocal Unable to d etermine if anti-HBs is present at levels consistent with immunity. Justyn hernandez's immune status should be further assessed by considering other clinica l information or retesting another sample drawn at a later time. >/= 12.0 mI U/mL Positive Patient is considered to be immune to infection with HBV. It barrera s not been determined what the clinical significance is for values g reater than or equal to 12.0 mIU/mL, other than the individual is considered to be immune to HBV infection. Performed By: #### HBSAB, HI RIS ####[place] [id number] [place] [id number] office visit: f/u left breast abscess s/ p i&d & drain on 2017-01-09 Documentation of Done Invalid 01-09-2017 [facility] Surgical current medications Interpretation Code 01-09-2017 [facility] (procedure) ([id number]) Fall risk No Invalid 01-09-2017 [facility] Gabby gical assessment Interpretation Code 7 [facility] ([id number]) Protein mass conc Done 01-09-2017 - [facility] Surgical 01-09-2017 [facility] ([id number]) Tobacco smoking Former 01-09-2017 - W Surgical status LAIS smoker 01-09-2017 [facility] ([id number]) Tobacco use CPHS Former Invalid 01-09-2017 [facility] Surgical smoker Interpretation Code 01-09-2017 [facility] ([id number]) office visit: recheck abscess on 2017-01-01 Dietary management yes Invalid 01-01-2017 [facility] Surgical education, Interpretation Code 7 [facility] guidance, and (77616 ) counseling (procedure) Documentation of Done Invalid 01-01-2017 [facility] Surgical current medications Interpretation Code 01-01-2017 [facility] (procedure) ([id number]) Fall risk No Invalid 01-01-2017 [facility] Gabby gical assessment Interpretation Code 7 [facility] ([id number]) Tobacco smoking Never Invalid 01-01-2017 - W Surgical status [facility] Interpretation Code 01-02-20 17 [facility] ([id number]) Tobacco use [facility] Former Invalid 01-01-2017 [facility] Surgical smoker Interpretation Code 01-01-2017 [facility] ([id number]) office visit: f/u left breast abscess on 2016-12-27 Dietary management yes Invalid 12-27-2016 [facility] Surgical education, Interpretation Code 7 [facility] guidance, and (37324 ) counseling (procedure) Documentation of Done Invalid 12-27-2016 [facility] Surgical current medications Interpretation Code 12-27-2016 [facility] (procedure) ([id number]) Fall risk No Invalid 12-27-2016 [facility] Gabby gical assessment Interpretation Code 7 [facility] ([id number]) Protein mass conc Done 12-27-2016 - [facility] Surgical 12-27-2016 [facility] ([id number]) Tobacco smoking Never Invalid 12-27-2016 - W Surgical status [facility] Interpretation Code 12-28-19 17 [facility] ([id number]) Tobacco smoking Former 12-27-2016 - W Surgical status [facility] smoker 12-27-2016 [facility] ([id number]) Tobacco use CPHS Former Invalid 12-27-2016 [facility] Surgical smoker Interpretation Code 12-27-2016 [facility] ([id number]) microbiology: culture, anaerobic any riddhi rce on 2016-12-21 [facility] Cult, AnaerobicNo 12-21-2016 [facility] Surgical anaerobic 12-21-2016 [facility] bacteria ([id number]) isolated. Culture, Cult, AnaerobicNo Invalid 12-21-2016 [facility] Surgical Anaerobic anaerobic Interpretation Code 12-21-2016 [facility] bacteria ([id number]) isolated. office visit: left breast mrsa abscess on 2016-12-20 Dietary management yes Invalid 12-20-2016 [facility] Surgical education, guidance, Interpretation Code 12-20-2016 [facility] and counseling (4469 1) (procedure) Documentation of Done Invalid 12-20-2016 [facility] Surgical current medications Interpretation Code 12-20-2016 [facility] (procedure) ([id number]) Fall risk assessment No Invalid [address] [place] [address] Surgical Interpretation Code 12-20-2016 [facility] ([id number]) replaced document: (p) culture, wound on 2016-12-19 CUW Vancomycin $ 1 S 12-19-2016 [facility] Surgical 12-19-2016 [facility] ([id number]) wound culture Vancomycin $ 1 S Invalid [address] [place] [address] Surgical Interpretation Code 12-19-2016 [facility] ([id number]) microbiology: (p) culture, anaerobic any source on 2016-12-19 Culture, Cult, Invalid 12-19-2016 [facility] Gabby gical Anaerobic AnaerobicChecking for Interpretation [facility] anaerobes, further Code ( 88412) studies to follow. microbiology: (p) culture, wound on 2016-12-18 [facility] . 12-18-2016 - 12-18-2 017 [facility] ([id number]) office visit: breast left abscess on 2016-12-17 Dietary management yes Invalid 12-17-2016 [facility] Surgical education, Interpretation Code 7 [facility] guidance, and (07087 ) counseling (procedure) Documentation of Done Invalid 12-17-2016 [facility] Surgical current medications Interpretation Code 12-17-2016 [facility] (procedure) ([id number]) Fall risk No Invalid 12-17-2016 [facility] Gabby gical assessment Interpretation Code 7 [facility] ([id number]) Protein mass conc Done 12-17-2016 - [facility] Surgical 12-17-2016 [facility] ([id number]) Tobacco smoking Never Invalid 12-17-2016 - W Surgical status [facility] Interpretation Code 12-18-19 17 [facility] ([id number]) Tobacco smoking Former 12-17-2016 - W Surgical status [facility] smoker 12-17-2016 [facility] ([id number]) Tobacco use CPHS Former Invalid 12-17-2016 - [facility] Surgical smoker Interpretation Code 12-17-2016 [facility] ([id number]) office visit: breast left abscess on 2016-02-15 General categories ASCUS Invalid 02-15-2016 - [facility] Surgical [interpretation] of Interpretation Code 02-15-2016 [facility] Cervical or vaginal ([id number]) smear or scraping by Cyto stain General categories Cyto ASCUS 2015 - [facility] Surgical stain Interp (Cervical 016 [facility] or vaginal smear or (86654) scraping) Vital Signs Vital Sign Description Value / Unit Date Location The following section is limited to 5 en tries per type and includes entries from the following time range: 20161217 - 5. BMI (Body Mass Index) 26.82 kg/m2 01-09-2017 - 01-09-2017 [facility] ([id number]) BMI (Body Mass Index) 26.79 kg/m2 01-01-2017 - 01-01-2017 [facility] ([id number]) BMI (Body Mass Index) 26.92 kg/m2 12-27-2016 - 12-27-2016 [facility] ([id number]) BMI (Body Mass Index) 28.08 kg/m2 12-20-2016 - 12-20-2016 [facility] ([id number]) BMI (Body Mass Index) 28.4 kg/m2 12-17-2016 - 12-17-2016 [facility] ([id number]) Body Temperature 98.2 [degF] 01-09-2017 - 01-09-2017 [facility] ([id number]) Body Temperature 97.8 [degF] 01-01-2017 - 01-01-2017 [facility] ([id number]) Body Temperature 97.9 [degF] 12-27-2016 [id number][facility] Body Temperature 97.6 [degF] 12-20-2016 - 12-20-2016 [facility] ([id number]) Body Temperature 97.81 [degF] 12-17-2016 - 12-17-2016 [facility] ([id number]) BP Diastolic 58 mm[Hg] 01-09-2017 - 01-09-2017 [facility] ([id number]) BP Diastolic 76 mm[Hg] 01-01-2017 - 01-01-2017 [facility] ([id number]) BP Diastolic 71 mm[Hg] 12-27-2016 - 12-27-2016 [facility] ([id number]) BP Diastolic 62 mm[Hg] 12-20-2016 - 12-20-2016 [facility] ([id number]) BP Diastolic 69 mm[Hg] 12-17-2016 - 12-17-2016 [facility] ([id number]) BP Systolic 94 mm[Hg] 01-09-2017 - 01-09-2017 [facility] ([id number]) BP Systolic 119 mm[Hg] 12-27-2016 - 12-27-2016 [facility] ([id number]) BP Systolic 107 mm[Hg] 12-20-2016 - 12-20-2016 [facility] ([id number]) BP Systolic 102 mm[Hg] 12-17-2016 - 12-17-2016 [facility] ([id number]) BSA (Body Surface Area) 1.9 m2 12-17-2016 - 12-17-2016 [facility] ([id number]) Height 167.64 cm 01-09-2017 - 01-09-2017 [facility] ([id number]) Height 167.64 cm 01-01-2017 - 01-01-2017 [facility] ([id number]) Height 167.64 cm 12-27-2016 - 12-27-2016 [facility] ([id number]) Height 167.64 cm 12-25-2016 - 12-25-2016 [facility] ([id number]) Height 167.64 cm 12-20-2016 - 12-20-2016 [facility] ([id number]) Pulse (Heart Rate) 67 /min 01-09-2017 - 01-09-2017 [facility] ([id number]) Pulse (Heart Rate) 72 /min 01-01-2017 - 01-01-2017 [facility] ([id number]) Pulse (Heart Rate) 87 /min 12-27-2016 - 12-27-2016 [facility] ([id number]) Pulse (Heart Rate) 66 /min 12-20-2016 - 12-20-2016 [facility] ([id number]) Pulse (Heart Rate) 85 /min 12-17-2016 - 12-17-2016 [facility] ([id number]) Pulse Oximetry 100 % 01-01-2017 - 01-01-2017 [facility] ([id number]) Pulse Oximetry 97 % 12-27-2016 - 12-27-2016 [facility] ([id number]) Pulse Oximetry 99 % 12-20-2016 - 12-20-2016 [facility] ([id number]) Pulse Oximetry 100 % 12-17-2016 - 12-17-2016 [facility] ([id number]) Respiratory Rate 20 /min 01-09-2017 - 01-09-2017 [facility] ([id number]) Respiratory Rate 18 /min 01-01-2017 - 01-01-2017 [facility] ([id number]) Respiratory Rate 20 /min 12-27-2016 - 12-27-2016 [facility] ([id number]) Respiratory Rate 16 /min 12-20-2016 - 12-20-2016 [facility] ([id number]) Respiratory Rate 16 /min 12-17-2016 - 12-17-2016 [facility] ([id number]) Weight 75.39 kg 01-09-2017 - 01-09-2017 [facility] ([id number]) Weight 75.3 kg 01-01-2017 - 01-01-2017 [facility] ([id number]) Weight 75.66 kg 12-27-2016 - 12-27-2016 [facility] ([id number]) Weight 78.93 kg 12-20-2016 - 12-20-2016 [facility] ([id number]) Weight 79.83 kg 12-17-2016 - 12-17-2016 [facility] ([id number]) Procedures Procedure Name Date Provider Location Follow up Appt 1 week 01-09-2017 - Talia Lu MD [facility] 01-14-2017 ([id number]) Dietary management 01-01-2017 - [facility] education, guidance, and 01-01-2017 ([id number]) counseling Dietary management 12-27-2016 - [facility] education, guidance, and 12-27-2016 (77225) counseling Follow Up after 12-27-2016 - Talia Lu MD [facility] Imaging/labs 12-27-2016 ([id number]) Follow up Appt 1 week 12-20-2016 - Talia Lu MD [facility] 12-27-2016 ([id number]) Dietary management 12-17-2016 - [facility] education, guidance, and 12-17-2016 ([id number]) counseling Plan of Treatment Plan Description Date Location Appointment Appointment 01-15-2017 - [facility] 01-15-2017 [facility] ([id number] 1) Appointment Appointment 01-09-2017 [facility] 01-09-2017 [facility] ([id number] 1) Follow up Appt 1 week Follow up Appt 1 week 01-09-2017 - [facility] 01-14-2017 [facility] ([id number] 1) Incision & Drainage, Incision & Drainage, 01-01-2017 [facility] Morales rgical complex/ multiple complex/ multiple 01-02-2017 [facility] ( [id number]) Appointment Appointment 12-27-2016 - [facility] 12-27-2016 [facility] ([id number] 1) Follow Up after Follow Up after 12-27-2016 [facility] Surgical Imaging/labs Imaging/labs 12-27-2016 [facility] ([id number] 1) US Breast(s) US Breast(s) 12-27-2016 - [facility] 12-27-2016 [facility] ([id number] 1) Appointment Appointment 12-25-2016 - [facility] 12-25-2016 [facility] ([id number] 1) Incision & Drainage, Incision & Drainage, 12-25-2016 [facility] Morales rgical complex/ multiple complex/ multiple 12-27-2016 [facility] ( [id number]) Follow up Appt 1 week Follow up Appt 1 week 12-25-2016 - [facility] 12-27-2016 [facility] ([id number] 1) Appointment Appointment 12-20-2016 - [facility] Surgical 12-20-2016 [facility] ([id number] 1) Follow up Appt 1 week Follow up Appt 1 week 12-20-2016 - [facility] 12-27-2016 [facility] ([id number] 1) Appointment Appointment 12-17-2016 - [facility] 12-17-2016 [facility] ([id number] 1) *CUAN - Culture, *CUAN - Culture, 12-17-2016 [facility] Anaerobic, Any Source Anaerobic, Any Source 12-17-2016 [facility] ([id number]) *CUW - Culture, Wound *CUW - Culture, Wound 12-17-2016 [facility] Surgical (Aerobic) (Aerobic) 12-17-2016 [facility] ([id number] 1) Puncture aspiration of Puncture aspiration of 12-17-2016 [facility] Surgical abcess,hematoma,bulla or abcess,hematoma,bulla 12-18-2016 [facility] (52213) cyst or cyst Patient education WEIGHT%20MANAGEMENT [facility] (4469 1) Summary Purpose Family History No Family History Records FoundNo Family History Records Found Advance Directives No Advanced Directives Records FoundNo Advanced Directives Records Found Additional Source Comments FOR RECORDS PERTAINING TO PATIENTS WHO ARE OR HAVE BEEN ENROLLED IN A CHEMICAL DEPENDENCY/SUBSTANCE ABUSE PROGRAM, SOME INFORMATION MAY BE OMITTED. This clinical summary was aggregated from multiple sources. Caution should be exercised in using it in the provision of clinical care. This summary normalizes information from multiple sources, and as a consequence, information in this document may materially changethe coding, format and clinical context of patient data. In addition, data may be omittedin some cases. CLINICAL DECISIONS SHOULD BE BASED ON THE PRIMARY CLINICAL RECORDS. [employer] [facility] provides no warranty or guarantee of the accuracy or completeness of information in this document. UNRECOGNIZED CONTENT PROVIDED BELOW FOR UNRECOGNIZED SECTION INFORMATION SOURCE DATE CREATED AUTHOR AUTHOR'S ORGANIZATIO N 05/15/2018 [facility] ([place]) DATE CREATED AUTHOR AUTHOR'S ORGANIZATIO N 12/13/2019 [facility]
== END ==
PROVIDERS: Referring Provider Obstetrics & Gynecology; Visit Provider Obstetrics & Gynecology
DX: Z36.85 Encounter for antenatal screening for Streptococcus B (principal)
CPT/HCPCS: 87081

== ENCOUNTER → 2019-12-11 12:32 | Outpatient (CLI) | payer OTHER, SELFPAY ==
--- OUTSIDE RECORDS SUMMARY | 2020-04-24 08:33 | XMS RPT_ITS | CCD ---
:1990 External Reference #:[id number] Author Organization [facility] Care Team Providers Name Role Phone Talia Lu MD Unavailable Andrea JONES, M Unavailable LIA Gómez RN, A Unavailable Unavailable Ronit Lu MD Unavailable Andrea JONES M Unavailable Allergies Reported Allergen Reaction(s) Severity Date of Onset Location Penicillins Critical, Critical 12-17-2016 - [facility] ([facility] (834 79) Medications Medication Name Sig Date Prescriber Location acetaminophen / OXYCODONE-ACETAMIN 12-20-2016 Talia Saenz Surgical oxyCODONE OPHEN 5-325 MG MD Chiu TABS One to Two (52667) tablets by mouth every 6 hours PRN pain OXYCODONE-ACETAMIN OPHEN [id number] Talia Lu MD Clindamycin CLINDAMYCIN HCL [facility] Surgical 300 MG CAPS One Associates tablet by mouth (63007) four times daily CLINDAMYCIN HCL [id number] Talia Lu MD sulfamethoxazole / BACTRIM DS 800-160 12-25-2016 Talia reynoso [facility] Surgical trimethoprim MG TABS One tablet MD Anthony s by mouth twice (75999) daily SULFAMETHOXAZOLE-T RIMETHOPRIM [id number] Talia Lu MD BACTRIM DS 800-160 MG TABS One 12-25-2016 Talia Saenz [facility] tablet by mouth twice daily Aly Santoso ciates (82413) SULFAMETHOXAZOLE-TRIMETHOPRIM [id number] Talia Lu MD BACTRIM DS 800-160 MG TABS One 12-25-2016 Talia L W [facility] tablet by mouth twice daily Aly armstrong (84113) SULFAMETHOXAZOLE-TRIMETHOPRIM [id number] Talia Lu MD BACTRIM DS 800-160 MG TABS One 12-20-2016 - Talia L W [facility] tablet by mouth twice daily 07-22-2017 Aly armstrong (52729) SULFAMETHOXAZOLE-TRIMETHOPRIM [id number] Talia Lu MD BACTRIM DS 800-160 MG TABS One 12-20-2016 - [facility] tablet by mouth twice daily 07-22-2017 [facility] (94517[facility] SULFAMETHOXAZOLE-TRIMETHOPRIM [id number] Talia Lu MD BACTRIM DS 800-160 MG TABS One 12-20-2016 - [facility] tablet by mouth twice daily 07-22-2017 [facility] (13592) SULFAMETHOXAZOLE-TRIMETHOPRIM [id number] Talia Lu MD BACTRIM DS 800-160 MG TABS One 12-20-2016 - [facility] tablet by mouth twice daily 07-22-2017 [facility] (46274) SULFAMETHOXAZOLE-TRIMETHOPRIM [id number] Talia Lu MD BACTRIM DS 800-160 MG TABS One 12-20-2016 - W [facility] tablet by mouth twice daily 07-22-2017 [facility] (48456) SULFAMETHOXAZOLE-TRIMETHOPRIM [id number] Talia Lu MD BACTRIM DS 800-160 MG TABS One 12-20-2016 - [facility] tablet by mouth twice daily 07-22-2017 [facility] (09542) SULFAMETHOXAZOLE-TRIMETHOPRIM [id number] Talia Lu MD BACTRIM DS 800-160 MG TABS One 12-20-2016 - W [facility] tablet by mouth twice daily 07-22-2017 [facility] (24176) SULFAMETHOXAZOLE-TRIMETHOPRIM [id number] Talia Lu MD Problems Active Problems Category Problem Name Status Date Location Other nutritional; Overweight Active 12-17-2016 - [facility] endocrine; and metabolic (21 268) disorders Past or Other Problems Category Problem Name Status Date Location Bacterial infection Methicillin resistant Completed 12-20-2016 [facility] Surgical Staphylococcus aureus Associ ates (10489) infection Deficiency and other Anemia Completed 12-17-2016 - [facility] Gabby gical anemia Associates (560 53) Skin and subcutaneous Abscess Completed 12-17-2016 [facility] Morales rgical tissue infections Associates (94272) Results Result Name Value Range Unit Interpretation Flag Date Location progress on 2019-12 PROGRESS HNO ID: [id number] Normal 12-13-2019 [facility] Author: Brody (Hoang) Loree [place] ([id number]) Service: ? Author Type: Nurse Practitioner Type: [...] care. This no te was generated using Blucarat software. It may contain errors in wo rding, punctuation, or spelling. Brody Ralph APRN.HOANG cnov on 2019-12-13 CNOV Office Visit (UCWSTR) Normal 12-13-19 [place] SHAYY Evangelista ([id number]) 1990 [facility] Date Time Provider Department ([id number]) 12/13/19 3:45 PM BRODY RALPH (HOANG) WS [...] Eyes: Pupils are equal, round, and react heavenly to light. Conjunctivae are normal. Right eye [...] of care. This note was generated using Blucarat software. It may contain errors i n [...] on progress on 2019-07 PROGRESS HNO ID: [id number] Normal 07-27-2019 [facility] Author: Ezequiel (Bethany.Hoang) LYNDSEY Adair [place] ([id number]) Service: ? Author Type: Nurse Practitioner Type: [...] 19 weeks. Is being followed by the [facility] women's health group. Uncomplicated so far. Normal routine OB appointments to this point. States seen in 07/23 for viral bronchitis, pt given mucine x and albuterol inhaler; pt is 19 wks 3 days ; States is s tarting to feel better, fatigue has improved but still has intermittent productive cough with light yellow mucus and is being kept awake at [facility] d/t cough; pt states was exposed to [...] Adair DNP.HOANG This note was completed with LE TOTE dictation software. Note was reviewed for accuracy. There may be minor misspellings or gr ammar miscues with LE TOTE Dictation. Allie [facility] [phone] cnov on 2019-07-27 CNOV Office Visit (FAMPWS) Normal 07-27-[address] [place] [address] [facility] SHAYY VARGHESE ([id number]) 1990 [facility] Date Time Provider Department ([id number]) 07/27/19 11:40 AM EZEQUIEL ADAIR (BETHANY.EXECUTIVE PILOT) FAMPWS During your visit today, we recorded the following informati on about you: Temperature Pulse Respiration Blood pressure 98.6 degrees 85/minute 16/minute 112/70 Weight 88.5 kg Ezequile Adair DNP.EXECUTIVE PILOT, PERPETUAL INVENTORY CLERK.EXECUTIVE PILOT 07/27/2019 1:53 PM Signed Chief Complaint Patient [...] 19 weeks. Is being followed by the [facility] women's health group. Uncomplicated so far. [...] - H/O chlamydia infection 10/19 Treated - [facility] - PAST MEDICAL HISTORY OF 02/09/1998 Color [...] Continue with routine OB appointments. Ezequiel Adair DNP.EXECUTIVE PILOT This note was completed with TopCoder software. Note was reviewed for accuracy. There may be minor misspellings or gramm ar miscues with LE TOTE Dictation. Coy [facility] [phone] Ezequiel Adair DNP.EXECUTIVE PILOT, PERPETUAL INVENTORY CLERK.EXECUTIVE PILOT 07/27/2019 12:05 PM Signed Self Care instructions: [...] again and maintaining your health. Ezequiel Adair DNP.EXECUTIVE PILOT Referring Provider: SELF [200] Allergies As of [...] again and maintaining your health. Ezequiel Adair DNP.EXECUTIVE PILOT Prescriptions ordered this encounter Disp Refills Start End CEFDINIR 300 MG CAPSULE 20 c* 0 07/27/2019 08/06/2019 Cmt: Patient had tolerated Cefdinir before. Route: ORAL Sig: Take 1 capsule by mouth twice daily for 10 days. Encounter Status:Closed by EZEQUIEL ADAIR DNP, CNP on 07/27/19 progress on 2019-07 PROGRESS HNO ID: [id number] Normal 07-23-2019 [facility] Author: [facility]Hoang[facility] ([id number][facility] Service: ? Author Type: Nurse Practitioner Type: [...] 2019-07-23 CNOV Office Visit (UCWSTR) Normal 07-23-19 [place] SHAYY Evaneglista ([id number]) 1990 [facility] Date Time Provider Department ([id number]) 07/23/19 3:30 PM FRIEDA PROCTOR (HOANG) WS During your visit today, we recorded the following informati on about you: Temperature Pulse Respiration Blood pressure 98 degrees 85/minute 18/minute 118/68 Weight 89.4 kg Frieda Proctor APRN.HOANG 07/23/2019 3:57 PM Signed Subjective HPI [...] Discussed expected course of illness Frieda Proctor APRN.EXECUTIVE PILOT [facility] ACUTE BRONCHITIS: You have acute bronchitis. [...] Hives Date Reviewed: 07/23/2019 Reviewed by: Frieda ([facility]) Hitesh - Fully Assessed Reason for Visit: [...] mg 12 hr tabletTake 1 tablet by [facility] twice daily for 10 days.Disp: 20 [...] Discussed expected course of illness Frieda Proctor APRN.EXECUTIVE PILOT [facility] ACUTE BRONCHITIS: You have acute bronchitis. [...] 2018-04-[address] Pos Normal 04-18-2018 [facility] ([place]) ([id number]) Comment: Result Comment: This immune status assay [...] testing is required. Performed By: #### HBSAB, [place] RIS ####[place] [address]80 [address] [place] [place] [address] 79926 hbsab on 2018-04-17 Hep B Surf Ab 151.0 mIU/mL Normal 04-17-2018 [facility] ([place]) ([id number]) Comment: Result Comment: Anti-HBs Int erpretation: 0 [...] to HBV infection. Performed By: #### HBSAB, [place] RIS ####[place] [address] [place] [place] [address] [id number] office visit: f/u left breast abscess s/ p i&d & drain on 2017-01-09 Documentation of Done Invalid 01-09-2017 [facility] Surgical current medications Interpretation Code 01-09-2017 Associates (procedure) (29248) Fall risk No Invalid 01-09-2017 [facility] Gabby gical assessment Interpretation Code 7 Associates (99995) Protein mass conc Done 01-09-2017 - [facility] Surgical 01-09-2017 Associate s (48844) Tobacco smoking Former 01-09-2017 - W Surgical status CTIS smoker 01-09-2017 [facility] (42069) Tobacco use CPHS Former Invalid 01-09-2017 [facility] Surgical smoker Interpretation Code 01-09-2017 Associates (32678) office visit: recheck abscess on 2017-01-01 Dietary management yes Invalid 01-01-2017 [facility] Surgical education, Interpretation Code 7 Associates guidance, and (70466 ) counseling (procedure) Documentation of Done Invalid 01-01-2017 [facility] Surgical current medications Interpretation Code 01-01-2017 Associates (procedure) (01052) Fall risk No Invalid 01-01-2017 [facility] Gabby gical assessment Interpretation Code 7 Associates (01070) Tobacco smoking Never Invalid 01-01-2017 - W Surgical status [facility] Interpretation Code 01-02-20 17 Associates (07046) Tobacco use [facility] Former Invalid 01-01-2017 [facility] Surgical smoker Interpretation Code 01-01-2017 Associates (14622) office visit: f/u left breast abscess on 2016-12-27 Dietary management yes Invalid 12-27-2016 [facility] Surgical education, Interpretation Code 7 Associates guidance, and (99126 ) counseling (procedure) Documentation of Done Invalid 12-27-2016 [facility] Surgical current medications Interpretation Code 12-27-2016 Associates (procedure) (19796) Fall risk No Invalid 12-27-2016 [facility] Gabby gical assessment Interpretation Code 7 Associates (14405) Protein mass conc Done 12-27-2016 - [facility] Surgical 12-27-2016 Associate s (79704) Tobacco smoking Never Invalid 12-27-2016 - W Surgical status [facility] Interpretation Code 12-28-19 17 Associates (69469) Tobacco smoking Former 12-27-2016 - W Surgical status NHIS smoker 12-27-2016 [facility] (27087) Tobacco use CPHS Former Invalid 12-27-2016 [facility] Surgical smoker Interpretation Code 12-27-2016 Associates (44731) microbiology: culture, anaerobic any riddhi rce on 2016-12-21 CUAN Cult, AnaerobicNo 12-21-2016 [facility] Surgical anaerobic 12-21-2016 Associate s bacteria (59736) isolated. Culture, Cult, AnaerobicNo Invalid 12-21-2016 [facility] Surgical Anaerobic anaerobic Interpretation Code 12-21-2016 Associates bacteria (63119) isolated. office visit: left breast mrsa abscess on 2016-12-20 Dietary management yes Invalid 12-20-2016 [facility] Surgical education, guidance, Interpretation Code 12-20-2016 Associates and counseling (4469 1) (procedure) Documentation of Done Invalid 12-20-2016 [facility] Surgical current medications Interpretation Code 12-20-2016 Associates (procedure) (64477) Fall risk assessment No Invalid [address] [place] [address] Surgical Interpretation Code 12-20-2016 Associates (45811) replaced document: (p) culture, wound on 2016-12-19 CUW Vancomycin $ 1 S 12-19-2016 [facility] Surgical 12-19-2016 Associate s (56950) wound culture Vancomycin $ 1 S Invalid [address] [place] [address] Surgical Interpretation Code 12-19-2016 Associates (93501) microbiology: (p) culture, anaerobic any source on 2016-12-19 Culture, Cult, Invalid 12-19-2016 [facility] Gabby gical Anaerobic AnaerobicChecking for Interpretation Associates anaerobes, further Code ( 60258) studies to follow. microbiology: (p) culture, wound on 2016-12-18 CUW . 12-18-2016 - 12-18-2 017 [facility] Surgical Associates (35185) office visit: breast left abscess on 2016-12-17 Dietary management yes Invalid 12-17-2016 [facility] Surgical education, Interpretation Code 7 Associates guidance, and (62003 ) counseling (procedure) Documentation of Done Invalid 12-17-2016 [facility] Surgical current medications Interpretation Code 12-17-2016 Associates (procedure) (88016) Fall risk No Invalid 12-17-2016 [facility] Gabby gical assessment Interpretation Code 7 Associates (10549) Protein mass conc Done 12-17-2016 - [facility] Surgical 12-17-2016 Associate s (17524) Tobacco smoking Never Invalid 12-17-2016 - W Surgical status [facility] Interpretation Code 12-18-19 17 Associates (44686) Tobacco smoking Former 12-17-2016 - W Surgical status NHIS smoker 12-17-2016 [facility] (76722) Tobacco use CPHS Former Invalid 12-17-2016 - [facility] Surgical smoker Interpretation Code 12-17-2016 Associates (10154) office visit: breast left abscess on 2016-02-15 General categories ASCUS Invalid 02-15-2016 - [facility] Surgical [interpretation] of Interpretation Code 02-15-2016 Associates Cervical or vaginal (48016) smear or scraping by Cyto stain General categories Cyto ASCUS 2015 - [facility] Surgical stain Interp (Cervical 016 Associates or vaginal smear or (30979) scraping) Vital Signs Vital Sign Description Value / Unit Date Location The following section is limited to 5 en tries per type and includes entries from the following time range: 20161217 - 5. BMI (Body Mass Index) 26.82 kg/m2 01-09-2017 - 01-09-[address] [facility] (98644) BMI (Body Mass Index) 26.79 kg/m2 01-01-2017 - 01-01-[address] [facility] (01333) BMI (Body Mass Index) 26.92 kg/m2 12-27-2016 - 12-27-[address] [facility] (58173) BMI (Body Mass Index) 28.08 kg/m2 12-20-2016 - 12-20-[address] [facility] (65136) BMI (Body Mass Index) 28.4 kg/m2 12-17-2016 - 12-17-[address] [facility] (11346) Body Temperature 98.2 [degF] 01-09-2017 - 01-09-2017 [facility] Gabby gical Associates (25678) Body Temperature 97.8 [degF] 01-01-2017 - 01-01-2017 [facility] Gabby gical [facility] (95472) Body Temperature 97.9 [degF] 12-27-2016 [facility]81874[facility] Body Temperature 97.6 [degF] 12-20-2016 - 12-20-2016 [facility] g[facility] (57692) Body Temperature 97.81 [degF] 12-17-2016 - 12-17-2016 [facility] g[facility] (88037) BP Diastolic 58 mm[Hg] 01-09-2017 - 01-09-2017 [facility] Surg ical Associates (35415) BP Diastolic 76 mm[Hg] 01-01-2017 - 01-01-2017 [facility] Surg ical Associates (03604) BP Diastolic 71 mm[Hg] 12-27-2016 - 12-27-2016 [facility] Surg ical Associates (76118) BP Diastolic 62 mm[Hg] 12-20-2016 - 12-20-2016 [facility] Surg ical Associates (81711) BP Diastolic 69 mm[Hg] 12-17-2016 - 12-17-2016 [facility] Surg ical Associates (36118) BP Systolic 94 mm[Hg] 01-09-2017 - 01-09-2017 [facility] Surg ical Associates (24579) BP Systolic 119 mm[Hg] 12-27-2016 - 12-27-2016 [facility] Surg ical Associates (48951) BP Systolic 107 mm[Hg] 12-20-2016 - 12-20-2016 [facility] Surg ical Associates (21617) BP Systolic 102 mm[Hg] 12-17-2016 - 12-17-2016 [facility] Surg ical Associates (04513) BSA (Body Surface Area) 1.9 m2 12-17-2016 - 12-17-2016 [facility] Surgical Associates (94733) Height 167.64 cm 01-09-2017 - 01-09-2017 [facility] Surg ical Associates (76214) Height 167.64 cm 01-01-2017 - 01-01-2017 [facility] Surg ical Associates (63832) Height 167.64 cm 12-27-2016 - 12-27-2016 [facility] Surg ical [facility] (07950) Height 167.64 cm 12-25-2016 - 12-25-2016 [facility] Surg ical [facility] (24873) Height 167.64 cm 12-20-2016 - 12-20-2016 [facility] Surg ical Associates (39762) Pulse (Heart Rate) 67 /min 01-09-2017 - 01-09-2017 [facility] S urgical Associates (91137) Pulse (Heart Rate) 72 /min 01-01-2017 - 01-01-2017 [facility] S urgical Associates (57479) Pulse (Heart Rate) 87 /min 12-27-2016 - 12-27-2016 [facility] S urgical Associates (36868) Pulse (Heart Rate) 66 /min 12-20-2016 - 12-20-2016 [facility] S urgical Associates (80625) Pulse (Heart Rate) 85 /min 12-17-2016 - 12-17-2016 [facility] S urgical Associates (89222) Pulse Oximetry 100 % 01-01-2017 - 01-01-2017 [facility] Surg ical Associates (82344) Pulse Oximetry 97 % 12-27-2016 - 12-27-2016 [facility] Surg ical [facility] (88471) Pulse Oximetry 99 % 12-20-2016 - 12-20-2016 [facility] Surg ical [facility] (74928) Pulse Oximetry 100 % 12-17-2016 - 12-17-2016 [facility] Surg ical [facility] (54409) Respiratory Rate 20 /min 01-09-2017 - 01-09-2017 [facility] (05727) Respiratory Rate 18 /min 01-01-2017 - 01-01-2017 [facility] (35159) Respiratory Rate 20 /min 12-27-2016 - 12-27-2016 [facility] (85204) Respiratory Rate 16 /min 12-20-2016 - 12-20-2016 [facility] (71315) Respiratory Rate 16 /min 12-17-2016 - 12-17-2016 [facility] (90514) Weight 75.39 kg 01-09-2017 - 01-09-2017 [facility] Surg ical Associates ([id number]) Weight 75.3 kg 01-01-2017 - 01-01-2017 [facility] Surg ical [facility] (58800) Weight 75.66 kg 12-27-2016 - 12-27-2016 [facility] Surg ical [facility] (53622) Weight 78.93 kg 12-20-2016 - 12-20-2016 [facility] S[facility] ical [facility] (98773) Weight 79.83 kg 12-17-2016 - 12-17-2016 [facility] Surg ical [facility] ([id number]) Procedures Procedure Name Date Provider Location Follow up Appt 1 week 01-09-2017 - Talia Lu MD [facility] 01-14-2017 (40117) Dietary management 01-01-2017 - [facility] Surgical Associates education, guidance, and 01-01-2017 (06661) counseling Dietary management 12-27-2016 - [facility] Surgical Associates education, guidance, and 12-27-2016 (63201) counseling Follow Up after 12-27-2016 - Talia Lu MD [facility] Surgica l Associates Imaging/labs 12-27-2016 ([id number]) Follow up Appt 1 week 12-20-2016 - Talia Lu MD [facility] S urgical [facility] 12-27-2016 (33633) Dietary management 12-17-2016 - [facility] Surgical Associates education, guidance, and 12-17-2016 (12215) counseling Plan of Treatment Plan Description Date Location Appointment Appointment 01-15-2017 - [facility] Surgical 01-15-2017 Associates (4469 1) Appointment Appointment 01-09-2017 [facility] Surgical 01-09-2017 Associates (4469 1) Follow up Appt 1 week Follow up Appt 1 week 01-09-2017 - [facility] Surgical 01-14-2017 Associates ([id number] 1) Incision & Drainage, Incision & Drainage, 01-01-2017 [facility] Morales rgical complex/ multiple complex/ multiple 01-02-2017 [facility] ( 71531) Appointment Appointment 12-27-2016 - [facility] Surgical 12-27-2016 Associates (4469 1) Follow Up after Follow Up after 12-27-2016 [facility] Surgical Imaging/labs Imaging/labs 12-27-2016 Associates (4469 1) US Breast(s) US Breast(s) 12-27-2016 - [facility] Surgical 12-27-2016 Associates (4469 1) Appointment Appointment 12-25-2016 - [facility] Surgical 12-25-2016 Associates (4469 1) Incision & Drainage, Incision & Drainage, 12-25-2016 [facility] Morales rgical complex/ multiple complex/ multiple 12-27-2016 [facility] ( 06749) Follow up Appt 1 week Follow up Appt 1 week 12-25-2016 - [facility] Surgical 12-27-2016 [facility] ([id number] 1) Appointment Appointment 12-20-2016 - [facility] Surgical 12-20-2016 [facility] (4469 1) Follow up Appt 1 week Follow up Appt 1 week 12-20-2016 - [facility] Surgical 12-27-2016 Associates ([id number] 1) Appointment Appointment 12-17-2016 - [facility] Surgical 12-17-2016 [facility] ([id number] 1) *CUAN - Culture, *CUAN - Culture, 12-17-2016 [facility] Surgical Anaerobic, Any Source Anaerobic, Any Source 12-17-2016 As[facility] ciates ([id number]) *CUW - Culture, Wound *CUW - Culture, Wound 12-17-2016 [facility] Surgical (Aerobic) (Aerobic) 12-17-2016 [facility] (4469 1) Puncture aspiration of Puncture aspiration of 12-17-2016 [facility] Surgical abcess,hematoma,bulla or abcess,hematoma,bulla 12-18-2016 A ssociates (51752) cyst or cyst Patient education WEIGHT%20MANAGEMENT [facility] Surgic al Associates (4469 1) Summary [...] BE BASED ON THE PRIMARY CLINICAL RECORDS. [facility] provides no warranty or guarantee of the accuracy or completeness of information in this document. UNRECOGNIZED CONTENT PROVIDED BELOW FOR UNRECOGNIZED SECTION INFORMATION SOURCE DATE CREATED AUTHOR AUTHOR'S ORGANIZATIO N 05/15/2018 [facility] ([place]) DATE CREATED AUTHOR AUTHOR'S ORGANIZATIO N 12/13/2019 [facility]
== END ==
PROVIDERS: Referring Provider Obstetrics & Gynecology; Visit Provider Obstetrics & Gynecology
DX: Z11.59 Encounter for screening for other viral diseases (principal)
CPT/HCPCS: 87635; G2023; U0003

== ENCOUNTER 2019-12-16 06:50 | Inpatient (IN) | payer OTHER, SELFPAY ==
[2017-02-22 16:59] VITALS: BMI 28.5
[2019-12-16] VITALS (25 sets, daily range): BP systolic 110–135; BP diastolic 59–77; PULSE 71–108; TEMP 36.1–37; O2SAT 80–99; BMI 34.7
[2019-12-16] MEDS: Lactated Ringers 1,000 ML 50 ML IV (07:30)
[2019-12-16 08:00] LABS: Absolute Lymphocyte Count 2.59 X10^3/uL (0.83-4.51); Absolute Neutrophil Count 5.3 X10^3/uL (2.0-7.7); Basophil# 0.01 X10^3/uL; Basophil% 0.1 % (0-1); Eosinophil# 0.09 X10^3/uL; Hematocrit 40.6 % (37-47); Hemoglobin 13.2 g/dL (12.0-15.0); Lymphocyte # 2.59 X10^3/ul (4.0); Lymphocyte % 29.8 % (19-41); Mean Corp Hgb Conc 32.5 g/dL (32-36); Mean Corpuscular Hgb 28.8 pg (27.0-32.0); Mean Corpuscular Volume 88.6 fL (81-99); Monocyte# 0.64 X10^3/uL; Monocyte% 7.4 % (0-10); NRBC Flagged by Analyzer 0 % (0-5); Neutrophil # 5.32 X10^3/uL (2.7-7.7); Neutrophil % 61.4 % (47-70); Platelet Count 206 K/mm3 (150-450); RBC Distribution Width CV 13.7 % (11.6-14.6); RBC Distribution Width SD 43.5 fl (35.1-43.9); Red Blood Count 4.58 M/mm3 (4.2-5.4); White Blood Count 8.7 K/mm3 (4.4-11.0)
--- NOTE | 2019-12-16 08:44 | PCM.HP.OB ---
- Problem List (1) 39 weeks gestation of Status: Acute History Date of Admission: 12/16/19 Final RAMANDEEP: 12/18/19 Final RAMANDEEP Source: US <20 weeks Gestational age: 39 Weeks and 5 Days History of this : This is a 29 year-old, G [], P [], at 39 weeks gestational age. Medical History: Medical History (Last Updated 12/16/19 @ 08:[address] Elaine Tamayo MD) Frequent headaches R51 Allergies Penicillins Allergy (Verified 02/22/17 17:02) Rash Home Medications: Home Medications Aspirin 81 mg PO DAILY 12/16/19 Butalb/Acetaminophen/Caffeine [Fioricet 50-300-40 mg Capsule] 1 tab PO PRN PRN 12/16/19 Vits [Prenatabs FA] 1 tab PO DAILY 12/16/19 Smoking Status: Former smoker Alcohol: None Substance Use Type: Sleep Aides Number of Fetus(es): 1 NST - FHR Rate Baby A Baseline: 140 Variability:: Moderate Accelerations:: 15 x 15 Decelerations:: None NST Reactive:: Yes FHR Category:: Category I Uterine Activity:: 0 History Past Pregnancies: Past Pregnancies Delivery Date Name GA/ Weeks Outcome Route Wt Infant Sex Labor Length Anesthesia Delivery Location Provider 10/2016 Jered 41 Living 8lb8oz M 24 Epidural Allie Labs: Mom's Problem List Problem Status Onset Code 39 weeks gestation of Acute Z3A.39 Mom's Labs & Results 12/16/19 12/16/19 07:30 07:30 WBC 8.7 RBC 4.58 Hgb 13.2 Hct 40.6 MCV 88.6 MCH 28.8 MCHC 32.5 RDW Std Deviation 43.5 RDW Coeff of Ofelia 13.7 Plt Count 206 MPV 11.0 Immature Gran % (Auto) 0.300 Neut % (Auto) 61.4 Lymph % (Auto) 29.8 Vernon % (Auto) 7.4 Eos % (Auto) 1.0 Baso % (Auto) 0.1 Absolute Neuts (auto) 5.3 Absolute Lymphs (auto) 2.59 Nucleated RBC % 0 Blood Type Pending Antibody Screen Pending Course Did the patient receive Yes care? Labs Blood Type: O RH: POSITIVE RPR/VDRL/Syphilis Nonreactive Rubella status Immune HbSAg Negative Date Done: 05/13/19 Chlamydia Negative Gonorrhea Negative HIV/AIDS Non-Reactive Group B Strep: Negative Current Obstetrical History Gestational Diabetes No Incompetent Cervix No Infertility No IUGR No Macrosomia No Hypertension/Pre-eclampsia No Placenta Previa/Abruption No PTL/PROM No Uterine anomaly No Oligohydramnios No Polyhydramnios No Multiple gestation No Past Medical History Asthma No Diabetes No Hypertension No Heart disease No Mitral valve prolapse No Neurologic/Seizure disorder/ No Migraines Kidney disease No Liver disease No Varicosities No Clotting disorders/Hx of DVT No Thyroid Dysfunction No Other medical diseases No Psychiatric disorders No Major trauma No Abnormal PAP smear Yes: HPV found 05/13/19 Sleep apnea No Mammogram in the last 2 years Yes: palpable abnormality, negative upon mammogram 05/21/19 Social History Marital Status: SINGLE Alleged father Kael Gardner Hx Smoking No Smoking Status Former smoker Substance Use Type Sleep Aides How long have you used unisom taken twice in for nausea substances (years)? What date/time did you last 07/2019 use any of the above? Have you had any previous denies inpatient or outpatient treatment Expected Infant Delivery Method: Spontaneous Vaginal Number of Visits: 10 Physical Exam Vitals: Vital Signs Temp Pulse BP Pulse Ox 98.5 F 87 111/67 98 12/16/19 07:48 12/16/19 08:15 12/16/19 07:49 12/16/19 08:15 General: Alert, Oriented x3, Cooperative, No apparent distress HEENT: Atraumatic, Normocephalic Cardiovascular: Regular rate, Regular Rhythm, Normal S1, Normal S2 Lungs: Clear to auscultation, Normal air movement Abdomen: Soft, Non Tender, Non-Distended Extremities:: No edema Neurological: Neuro grossly intact Assessment/Plan All Active Problems (Last Updated 12/16/19 @ 08:[address] Elaine Tamayo MD) 39 weeks gestation of (Acute) This is a 29 year-old, G [2], P [1001], at 39 5/7 weeks gestational age. Procedure Criteria Procedure Type: Elective Procedure Essential: No COVID Risk Discussion: The surgeon/proceduralist and patient have discussed in detail the risk of exposure to and/or potential harm posed by the COVID-19 virus with having a surgery/procedure at this time versus the risk of delaying the surgery/procedure. It is not possible to know either the risk of delaying the surgery or procedure or chance of getting an infection with perfect accuracy, but a joint decision was made between the patient and the surgeon/proceduralist to proceed at this time with the scheduled surgery/procedure as indicated on the consent form.
[2019-12-16] MEDS: miSOPROStol 25 MCG TABLET VAGINAL (09:15)
[2019-12-16] MEDS: Acetaminophen 325 MG Tablet PO (09:20)
[2019-12-16] MEDS: 0.9% Saline Lock 10 ML Syringe IV (09:22)
[2019-12-16] MEDS: Oxytocin 30 units/NS 500 ml 30 UNITS/500 ML IV.SOLN IV (13:32)
[2019-12-17] VITALS (14 sets, daily range): BP systolic 106–132; BP diastolic 50–73; PULSE 81–100; RESP 16–18; TEMP 35.9–36.8
[2019-12-17] MEDS: Oxytocin 30 units/NS 500 ml 30 UNITS/500 ML IV.SOLN 334 UNITS IV (00:04)
--- NOTE | 2019-12-17 00:25 | PCM.OPRPT ---
Problem List (1) 39 weeks gestation of Status: Acute Report of Operation Date of Procedure: 12/17/19 Vaginal Delivery Maternal Presentation: Elective Induction Method of Induction: Pitocin Amniotic Membrane Rupture Type: Artificial Amniotic Fluid Description: Clear Final RAMANDEEP: 12/18/19 Final RAMANDEEP Source: US <20 weeks Gestational age: 39 Weeks and 6 Days Date of Procedure: 12/17/19 Pre-Operative Diagnosis: IOL Post-Operative Diagnosis: Surgery/ Procedure Performed: Spontaneous Vaginal Delivery Type of Anesthesia: None Description of Procedure: Patient complete /+2 at 0830. Patient pushed well for two pushes to deliver head in OA to KARY over an intact perineum. Shoulders delivered spontaneously followed by body. The female infant was placed on the maternal abdomen and further attended by nursery personnel with bulb suction and stimulation. The cord was doubly clamped then cut by FOB under CNM supervision at approximately 2 minutes of life. Cod blood collected. IV Pitocin started per protocol. With gentle cord traction spontaneous delivery of placenta. Upon inspection placenta noted to appear intact with a 3 vessel cord. Fundal massage given, noted to be firm,U/2 and midline. Right labial hematoma noted. EBL 100. Sponge count correct x2. Apgars 8/9. Presentation: Vertex, KARY Placental Delivery Description: Spontaneous Placenta Disposition: [facility] Cord Vessel Description: 3 Vessels Cord Entanglement: None Estimated Blood Loss: 100 A gender: Female (1 minute): 8 (5 minute): 9 Episiotomy Description: None Medications given after delivery: IV Pitocin
[2019-12-17] MEDS: Acetaminophen 500 MG Tablet 1000 MG PO (00:46)
[2019-12-17] MEDS: Ibuprofen 600 MG Tablet PO ×2 (02:30→09:50)
--- NOTE | 2019-12-17 04:03 | NURSING ---
RN noted hematoma smaller than previously.
[2019-12-17 05:33] LABS: Hematocrit 38.6 % (37-47); Hemoglobin 12.9 g/dL (12.0-15.0); Mean Corp Hgb Conc 33.4 g/dL (32-36); Mean Corpuscular Hgb 29.4 pg (27.0-32.0); Mean Corpuscular Volume 87.9 fL (81-99); Platelet Count 214 K/mm3 (150-450); RBC Distribution Width CV 13.3 % (11.6-14.6); RBC Distribution Width SD 42.8 fl (35.1-43.9); Red Blood Count 4.39 M/mm3 (4.2-5.4); White Blood Count 16.2 K/mm3 (4.4-11.0)
--- NOTE | 2019-12-17 08:18 | PCM.PN.OB ---
Patient Problems: Active and Suspected Problems (Last Updated 12/16/19 @ 08:[address] Elaine Tamayo MD) 39 weeks gestation of (Acute) Subjective: Doing well. She is sore, but pain tolerable. OOB, ambulating and voiding without difficulty. Lochia moderate to heavy, but not changing pad more than every 2 hours yet. She is . Infant latching well, but Shayy notes one of her nipples is occasionally inverted. Objective: AVSS - Physical Exam Vitals/I&O's: Vital Signs Temp Pulse Resp BP Pulse Ox 98.3 F 89 18 115/63 97 12/17/19 03:45 12/17/19 03:45 12/17/19 03:45 12/17/19 03:45 12/16/19 21:57 Oxygen Delivery Method Room Air Weight: 97.522 kg Body Mass Index (BMI) 34.7 Intake and Output for Last 24 Hours 12/15/19 12/16/19 12/17/19 23:59 23:59 23:59 Intake Total 1728.79 / 1728.79 900.33 / 900.33 Output Total 700 / 700 150 / 150 Balance 1028.79 / 1028.79 750.33 / 750.33 General: Alert, Oriented x3, Cooperative, No apparent distress HEENT: Atraumatic, Normocephalic Lungs: Clear to auscultation, Normal air movement Cardiovascular: Regular rate, Regular Rhythm, Normal S1, Normal S2 Abdomen: Soft, Non Tender, Non-Distended, - - Fundus firm and nontender, lochia heavy Extremities: No edema, No Calf Tenderness Neurological: Neuro grossly intact Psych/Mental Status: Normal Affect, Appropriate, Alert and oriented to time, place, person, mood and affect Laboratory Results 12/16/19 07:30: Blood Type O POSITIVE, Antibody Screen NEGATIVE 12/17/19 05:25: WBC 16.2 H, RBC 4.39, Hgb 12.9, Hct 38.6, MCV 87.9, MCH 29.4, MCHC 33.4, RDW Std Deviation 42.8, RDW Coeff of Ofelia 13.3, Plt Count 214, MPV 11.0 Current Medications Acetaminophen (Tylenol) 1,000 mg PO Q8H PRN PRN PRN Reason: Pain Score 1-3/10 Last Admin: 12/17/19 00:46 Dose: 1,000 mg Documented by: Bisacodyl (Dulcolax) 10 mg RECTAL UD PRN PRN Reason: If no BM Hydrocortisone (Hytone) 1 applic TOPICAL TID PRN PRN; Protocol PRN Reason: Discomfort Ibuprofen (Motrin) 600 mg PO Q6H PRN PRN PRN Reason: Pain Score 1-310 Last Admin: 12/17/19 02:30 Dose: 600 mg Documented by: Methylergonovine Maleate (Methergine) 0.2 mg IM X1 PRN PRN Reason: Excess bleeding/uterine atony Ondansetron HCl (Zofran) 4 mg IV Q4H PRN PRN PRN Reason: Nausea Oxycodone HCl (Oxyir) 5 - 10 mg PO Q4H PRN PRN PRN Reason: Pain Score 4-10/10 Senna/Docusate Sodium (Senokot-S, Niru-Colace) 1 - 2 tablet PO DAILY PRN PRN PRN Reason: Constipation Simethicone (Mylicon) 80 mg PO PCHS PRN PRN Reason: Indigestion/Stomach pain Sodium Chloride () 5 - 15 ml IV UD PRN PRN Reason: SALINE FLUSH Throat Lozenges (Dermoplast (Sp)) 1 applic TOPICAL 4X/DAY PRN PRN; Protocol PRN Reason: Pain/Inflammation Medical Necessity - Tobacco Use Smoking Status: Former smoker Assessment/Plan All Active Problems (Last Updated 12/16/19 @ 08:[address] Elaine Tamayo MD) 39 weeks gestation of (Acute) This is a 29 year-old, G []2, P [2002], s/p doing well. -Rh positive -, consult -Lochia heavy, H/H stable and no sx anemia. Will monitor further. Plan repeat CBC in am if not slowed. -Routine care
[2019-12-18 00:25] VITALS: BP 105/44; PULSE 69; RESP 17; TEMP 36.9
[2019-12-18 04:15] VITALS: BP 113/49; PULSE 74; RESP 17; TEMP 36.9
--- NOTE | 2019-12-18 07:34 | PCM.PN.OB ---
Patient Problems: Active and Suspected Problems (Last Updated 12/16/19 @ 08:[address] Elaine Tamayo MD) 39 weeks gestation of (Acute) Subjective: Patient without complaints. Minimal vaginal bleeding. Swelling is going down and vaginal area. Breast-feeding going well. Wants to go home today. - Physical Exam Vitals/I&O's: Vital Signs Temp Pulse Resp BP Pulse Ox 98.5 F 69 17 105/44 L 97 12/18/19 00:25 12/18/19 00:25 12/18/19 00:25 12/18/19 00:25 12/16/19 21:57 Oxygen Delivery Method Room Air Weight: 215 lb Body Mass Index (BMI) 34.7 Intake and Output for Last 24 Hours 12/16/19 12/17/19 12/18/19 23:59 23:59 23:59 Intake Total 1728.79 / 1728.79 900.33 / 900.33 Output Total 700 / 700 150 / 150 Balance 1028.79 / 1028.79 750.33 / 750.33 Current Medications Acetaminophen (Tylenol) 1,000 mg PO Q8H PRN PRN PRN Reason: Pain Score 1-3/10 Last Admin: 12/17/19 00:46 Dose: 1,000 mg Documented by: Bisacodyl (Dulcolax) 10 mg RECTAL UD PRN PRN Reason: If no BM Hydrocortisone (Hytone) 1 applic TOPICAL TID PRN PRN; Protocol PRN Reason: Discomfort Ibuprofen (Motrin) 600 mg PO Q6H PRN PRN PRN Reason: Pain Score 1-3/10 Last Admin: 12/17/19 09:50 Dose: 600 mg Documented by: Methylergonovine Maleate (Methergine) 0.2 mg IM X1 PRN PRN Reason: Excess bleeding/uterine atony Ondansetron HCl (Zofran) 4 mg IV Q4H PRN PRN PRN Reason: Nausea Oxycodone HCl (Oxyir) 5 - 10 mg PO Q4H PRN PRN PRN Reason: Pain Score 4-10/10 Senna/Docusate Sodium (Senokot-S, Niru-Colace) 1 - 2 tablet PO DAILY PRN PRN PRN Reason: Constipation Simethicone (Mylicon) 80 mg PO PCHS PRN PRN Reason: Indigestion/Stomach pain Sodium Chloride () 5 - 15 ml IV UD PRN PRN Reason: SALINE FLUSH Throat Lozenges (Dermoplast (Sp)) 1 applic TOPICAL 4X/DAY PRN PRN; Protocol PRN Reason: Pain/Inflammation Medical Necessity - Tobacco Use Smoking Status: Former smoker Assessment/Plan All Active Problems (Last Updated 12/16/19 @ 08:[address] Elaine Tamayo MD) 39 weeks gestation of (Acute) Doing well . Will discharge to home with routine instructions.
--- NOTE | 2019-12-18 07:35 | DCINST_ITS ---
Discharge Diet: No Restrictions Discharge Activity: May Shower, May Take a Tub Bath May resume sexual activity in: 4-6 weeks Additional Activity Instructions:: Nothing in the vagina for 4-6 weeks. You may return to work/school in 6 weeks. Call your doctor if you observe: Inability to urinate, Inability to have a bowel movement, Using more than one pad per hour Additional Instructions: If you experience any of the following, contact your healthcare provider. * Bleeding that soaks a pad every hour for 2 hours * Fever 100.4 or higher * Unrelieved incision or abdominal pain * Swelling, redness, discharge or bleeding from your incision or episiotomy site * Your incision begins to separate * Problems urinating (including inability to urinate or burning while urinating). * Visual changes * Severe headache * Flu-like symptoms * Pain or redness in one of both of your breasts * Pain, warmth, tenderness or swelling in your legs, especially the calf area * Frequent nausea and vomiting * Symptoms of depression or anxiety If you experience any of the following, call 911 or go to the nearest Emergency Room. * Chest pain * Problems breathing * Seizure activity * Partial or complete paralysis of a body part, slurred speech, weakness or drooping of the face, or a sudden inability to walk or hold your balance Allergies/Adverse Reactions: Allergies Penicillins Allergy (Verified 02/22/17 17:02) Rash Medications to take at Discharge Aspirin 81 mg PO DAILY 12/16/19 Butalb/Acetaminophen/Caffeine [Fioricet 50-300-40 mg Capsule] 1 tab PO PRN PRN 12/16/19 Vits [Prenatabs FA] 1 tab PO DAILY 12/16/19 Please Follow Up With: Toshia Rawls, DEENA - [phone] When: Call to make an appointment with your provider in 6 weeks. Test Results: Test results from this visit will be discussed in further detail at your follow- up appointment, if applicable.
--- NOTE | 2019-12-18 07:35 | PCM.DCVAG ---
Discharge Diet: No Restrictions Discharge Activity: May Shower, May Take a Tub Bath May resume sexual activity in: 4-6 weeks Additional Activity Instructions:: Nothing in the vagina for 4-6 weeks. You may return to work/school in 6 weeks. Call your doctor if you observe: Inability to urinate, Inability to have a bowel movement, Using more than one pad per hour Additional Instructions: If you experience any of the following, contact your healthcare provider. Bleeding that soaks a pad every hour for 2 hours Fever 100.4 or higher Unrelieved incision or abdominal pain Swelling, redness, discharge or bleeding from your incision or episiotomy site Your incision begins to separate Problems urinating (including inability to urinate or burning while urinating). Visual changes Severe headache Flu-like symptoms Pain or redness in one of both of your breasts Pain, warmth, tenderness or swelling in your legs, especially the calf area Frequent nausea and vomiting Symptoms of depression or anxiety If you experience any of the following, call 911 or go to the nearest Emergency Room. Chest pain Problems breathing Seizure activity Partial or complete paralysis of a body part, slurred speech, weakness or drooping of the face, or a sudden inability to walk or hold your balance Allergies/Adverse Reactions: Allergies Penicillins Allergy (Verified 02/22/17 17:02) Rash Medications to take at Discharge Aspirin 81 mg PO DAILY 12/16/19 Butalb/Acetaminophen/Caffeine [Fioricet 50-300-40 mg Capsule] 1 tab PO PRN PRN 12/16/19 Vits [Prenatabs FA] 1 tab PO DAILY 12/16/19 Please Follow Up With: Toshia Rawls, DEENA - [phone] When: Call to make an appointment with your provider in 6 weeks. Test Results: Test results from this visit will be discussed in further detail at your follow-up appointment, if applicable.
--- NOTE | 2019-12-18 07:41 | NURSING ---
pt called this RN to come to room @ 0600 for concern over size of clot passed after using the bathroom. clot noted to be the size of a golf ball - weight 22grams. small amount of bleeding noted on ice pack and pad. from further assessment bleeding within normal range and no trickling of blood noted.
[2019-12-18 09:23] VITALS: BP 112/72; PULSE 85; RESP 18; TEMP 36.3
--- OUTSIDE RECORDS SUMMARY | 2020-04-24 10:43 | XMS RPT_ITS | CCD ---
:1990 External Reference #:[id number] Author Organization [facility] Care Team Providers Name Role Phone Talia Lu MD Unavailable Andrea JONES, M Unavailable LIA Gómez RN, A Unavailable Unavailable Ronit Lu MD Unavailable Andrea JONES M Unavailable Allergies Reported Allergen Reaction(s) Severity Date of Onset Location Penicillins Critical, Critical 12-17-2016 - [facility] S[facility] matias (Antibiotic) [facility] ([phone]) Medications Medication Name Sig Date Prescriber Location acetaminophen / OXYCODONE-ACETAMIN 12-20-2016 Talia Saenz Surgical oxyCODONE OPHEN 5-325 MG MD Chiu TABS One to Two (04776) tablets by mouth every 6 hours PRN pain OXYCODONE-ACETAMIN OPHEN [id number] Talia Lu MD Clindamycin CLINDAMYCIN HCL [facility] Surgical 300 MG CAPS One [facility] tablet by mouth (96587) four times daily CLINDAMYCIN HCL [id number] Talia Lu MD sulfamethoxazole / BACTRIM DS 800-160 12-25-2016 Talia reynoso [facility] Surgical trimethoprim MG TABS One tablet MD Anthony s by mouth twice (45412) daily SULFAMETHOXAZOLE-T RIMETHOPRIM [id number] Talia Lu MD BACTRIM DS 800-160 MG TABS One 12-25-2016 Talia Saenz [facility] tablet by mouth twice daily Aly Santoso ciates (28459) SULFAMETHOXAZOLE-TRIMETHOPRIM [id number] Talia Lu MD BACTRIM DS 800-160 MG TABS One 12-25-2016 Talia L W [facility] tablet by mouth twice daily Aly armstrong (49332) SULFAMETHOXAZOLE-TRIMETHOPRIM 43701858901 Talia Lu MD BACTRIM DS 800-160 MG TABS One 12-20-2016 - Talia L W [facility] tablet by mouth twice daily 07-22-2017 Aly armstrong (60086) SULFAMETHOXAZOLE-TRIMETHOPRIM [id number] Talia Lu MD BACTRIM DS 800-160 MG TABS One 12-20-2016 - [facility] tablet by mouth twice daily 07-22-2017 [facility] (35568[facility] SULFAMETHOXAZOLE-TRIMETHOPRIM 37177293009 Talia Lu MD BACTRIM DS 800-160 MG TABS One 12-20-2016 - [facility] tablet by mouth twice daily 07-22-2017 [facility]96714[facility] SULFAMETHOXAZOLE-TRIMETHOPRIM 13167113329 Talia Lu MD BACTRIM DS 800-160 MG TABS One 12-20-2016 - [facility] tablet by mouth twice daily 07-22-2017 [facility] (09506) SULFAMETHOXAZOLE-TRIMETHOPRIM 46643377815 Talia Lu MD BACTRIM DS 800-160 MG TABS One 12-20-2016 - [facility] tablet by mouth twice daily 07-22-2017 [facility] (77873) SULFAMETHOXAZOLE-TRIMETHOPRIM [id number] Talia Lu MD BACTRIM DS 800-160 MG TABS One 12-20-2016 - [facility] tablet by mouth twice daily 07-22-2017 [facility] (42185) SULFAMETHOXAZOLE-TRIMETHOPRIM [id number] Talia Lu MD BACTRIM DS 800-160 MG TABS One 12-20-2016 - W [facility] tablet by mouth twice daily 07-22-2017 [facility] (12059) SULFAMETHOXAZOLE-TRIMETHOPRIM [id number] Talia Lu MD Problems Active Problems Category Problem Name Status Date Location Other nutritional; Overweight Active 12-17-2016 - [facility] endocrine; and metabolic (62 150) disorders Past or Other Problems Category Problem Name Status Date Location Bacterial infection Methicillin resistant Completed 12-20-2016 [facility] Surgical Staphylococcus aureus Associ ates (43004) infection Deficiency and other Anemia Completed 12-17-2016 - [facility] Gabby gical anemia Associates (684 05) Skin and subcutaneous Abscess Completed 12-17-2016 [facility] Morales rgical tissue infections Associates (48529) Results Result Name Value Range Unit Interpretation Flag Date Location progress on 2019-12 PROGRESS HNO ID: [id number] Normal 12-13-2019 [facility] Author: Brody (Hoang) Loere [place] ([id number]) Service: ? Author Type: Nurse Practitioner Type: [...] care. This no te was generated using [employer] software. It may contain errors in wo rding, punctuation, or spelling. Brody Ralph APRN.HOANG cnov on 2019-12-13 CNOV Office Visit (UCWSTR) Normal 12-13-19 [place] SHAYY Evangelista ([id number]) 1990 [facility] Date Time Provider Department ([id number]) 12/13/19 3:45 PM BRODY RALPH (HOANG) WS [...] of care. This note was generated using [employer] software. It may contain errors i n [...] on progress on 2019-07 PROGRESS HNO ID: [id number] Normal 07-27-2019 [facility] Author: Ezequiel (Bethany.Hoang) LYNDSEY Adair [place] ([id number]) Service: ? Author Type: Nurse Practitioner Type: [...] 19 weeks. Is being followed by the [facility] women's health group. Uncomplicated so far. Normal routine OB appointments to this point. States seen in 07/23 for viral bronchitis, pt given mucine x and albuterol inhaler; pt is 19 wks 3 days ; States is s tarting to feel better, fatigue has improved but still has intermittent productive cough with light yellow mucus and is being kept awake at [facility] d/t cough; pt states was [...] Adair DNP.HOANG This note was completed with [employer] dictation software. Note was reviewed for accuracy. There may be minor misspellings or gr ammar miscues with [employer] Dictation. [place] [facility] [phone] cnov on 2019-07-27 CNOV Office Visit (FAMPWS) Normal 07-27-[address] [place] [address] [facility] SHAYY VARGHESE ([id number]) 1990 [facility] Date Time Provider Department ([id number]) 07/27/19 11:40 AM EZEQUIEL ADAIR (BETHANY.SOURCING ENGINEER) FAMPWS During your visit today, we recorded the following informati on about you: Temperature Pulse Respiration Blood pressure 98.6 degrees 85/minute 16/minute 112/70 Weight 88.5 kg Ezequiel Adair DNP.SOURCING ENGINEER, MARBLE SUPERVISOR.SOURCING ENGINEER 07/27/2019 1:53 PM Signed Chief Complaint Patient [...] 19 weeks. Is being followed by the [facility] women's health group. Uncomplicated so far. Normal [...] - H/O chlamydia infection 10/19 Treated - [facility]ST MEDICAL HISTORY OF [...] Continue with routine OB appointments. Ezequiel Adair DNP.SOURCING ENGINEER This note was completed with [employer] software. Note was reviewed for accuracy. There may be minor misspellings or gramm ar miscues with [employer] Dictation. [place] [facility] [phone] Ezequiel Adair DNP.SOURCING ENGINEER, MARBLE SUPERVISOR.SOURCING ENGINEER 07/27/2019 12:05 PM Signed Self Care instructions: [...] seeing you again and maintaining your health. Ezqeuiel Adair DNP.SOURCING ENGINEER Referring Provider: SELF [200] Allergies As of [...] again and maintaining your health. Ezequiel Adair DNP.SOURCING ENGINEER Prescriptions ordered this encounter Disp Refills Start End CEFDINIR 300 MG CAPSULE 20 c* 0 07/27/2019 08/06/2019 Cmt: Patient had tolerated Cefdinir before. Route: ORAL Sig: Take 1 capsule by mouth twice daily for 10 days. Encounter Status:Closed by EZEQUIEL ADAIR DNP, CNP on 07/27/19 progress on 2019-07 PROGRESS HNO ID: [id number] Normal 07-23-2019 [facility] Author: [facility] ([id number][facility] Service: ? Author Type: Nurse Practitioner Type: [...] 2019-07-23 CNOV Office Visit (UCWSTR) Normal 07-23-19 [place] SHAYY Evangelista ([id number]) 1990 [facility] Date Time Provider Department ([id number]) 07/23/19 3:30 PM FRIEDA PROCTOR (HOANG) WS [...] Discussed expected course of illness Frieda Proctor APRN.SOURCING ENGINEER [facility] ACUTE BRONCHITIS: You have acute bronchitis. [...] Hives Date Reviewed: 07/23/2019 Reviewed by: Frieda ([facility]) Hitesh - Fully Assessed Reason for [...] mg 12 hr tabletTake 1 tablet by [facility] twice daily for [...] Discussed expected course of illness Frieda Proctor APRN.SOURCING ENGINEER [facility] ACUTE BRONCHITIS: You have acute bronchitis. [...] 2018-04-[address] Pos Normal 04-18-2018 [facility] ([place]) ([id number]) Comment: Result Comment: This immune status assay [...] testing is required. Performed By: #### HBSAB, [place] RIS ####[place] [id number] [place] [address] 21650 hbsab on 2018-04-17 Hep B Surf Ab 151.0 mIU/mL Normal 04-17-2018 [facility] ([place]) (00515) Comment: Result Comment: Anti-HBs Int erpretation: 0 [...] to HBV infection. Performed By: #### HBSAB, [place] RIS ####[place] [address] [place] [address] [id number] office visit: f/u left breast abscess s/ p i&d & drain on 2017-01-09 Documentation of Done Invalid 01-09-2017 [facility] Surgical current medications Interpretation Code 01-09-2017 Associates (procedure) (98414) Fall risk No Invalid 01-09-2017 [facility] Gabby gical assessment Interpretation Code 7 Associates (51512) Protein mass conc Done 01-09-2017 - [facility] Surgical 01-09-2017 Associate s (35196) Tobacco smoking Former 01-09-2017 - W Surgical status MSIS smoker 01-09-2017 [facility]oc[facility] noa (72800) Tobacco use CPHS Former Invalid 01-09-2017 [facility] Surgical smoker Interpretation Code 01-09-2017 Associates (94276) office visit: recheck abscess on 2017-01-01 Dietary management yes Invalid 01-01-2017 [facility] Surgical education, Interpretation Code 7 Associates guidance, and (07304 ) counseling (procedure) Documentation of Done Invalid 01-01-2017 [facility] Surgical current medications Interpretation Code 01-01-2017 Associates (procedure) (11320) Fall risk No Invalid 01-01-2017 [facility] Gabby gical assessment Interpretation Code 7 Associates (09420) Tobacco smoking Never Invalid 01-01-2017 - W Surgical status [facility] Interpretation Code 01-02-20 17 Associates (96842) Tobacco use [facility] Former Invalid 01-01-2017 [facility] Surgical smoker Interpretation Code 01-01-2017 Associates (49886) office visit: f/u left breast abscess on 2016-12-27 Dietary management yes Invalid 12-27-2016 [facility] Surgical education, Interpretation Code 7 Associates guidance, and (76660 ) counseling (procedure) Documentation of Done Invalid 12-27-2016 [facility] Surgical current medications Interpretation Code 12-27-2016 Associates (procedure) (67559) Fall risk No Invalid 12-27-2016 [facility] Gabby gical assessment Interpretation Code 7 Associates (87160) Protein mass conc Done 12-27-2016 - [facility] Surgical 12-27-2016 Associate s (44911) Tobacco smoking Never Invalid 12-27-2016 - W Surgical status [facility] Interpretation Code 12-28-19 17 Associates (84682) Tobacco smoking Former 12-27-2016 - W Surgical status NHIS smoker 12-27-2016 [facility] (54152) Tobacco use CPHS Former Invalid 12-27-2016 [facility] Surgical smoker Interpretation Code 12-27-2016 Associates (27970) microbiology: culture, anaerobic any riddhi rce on 2016-12-21 CUAN Cult, AnaerobicNo 12-21-2016 [facility] Surgical anaerobic 12-21-2016 Associate s bacteria (50984) isolated. Culture, Cult, AnaerobicNo Invalid 12-21-2016 [facility] Surgical Anaerobic anaerobic Interpretation Code 12-21-2016 Associates bacteria (64848) isolated. office visit: left breast mrsa abscess on 2016-12-20 Dietary management yes Invalid 12-20-2016 [facility] Surgical education, guidance, Interpretation Code 12-20-2016 Associates and counseling (4469 1) (procedure) Documentation of Done Invalid 12-20-2016 [facility] Surgical current medications Interpretation Code 12-20-2016 Associates (procedure) (35553) Fall risk assessment No Invalid [address] [place] [address] Surgical Interpretation Code 12-20-2016 Associates (15409) replaced document: (p) culture, wound on 2016-12-19 CUW Vancomycin $ 1 S 12-19-2016 [facility] Surgical 12-19-2016 Associate s (15190) wound culture Vancomycin $ 1 S Invalid [address] [place] [address] Surgical Interpretation Code 12-19-2016 Associates (24431) microbiology: (p) culture, anaerobic any source on 2016-12-19 Culture, Cult, Invalid 12-19-2016 [facility] Gabby gical Anaerobic AnaerobicChecking for Interpretation Associates anaerobes, further Code ( 22849) studies to follow. microbiology: (p) culture, wound on 2016-12-18 CUW . 12-18-2016 - 12-18-2 017 [facility] Surgical Associates (60829) office visit: breast left abscess on 2016-12-17 Dietary management yes Invalid 12-17-2016 [facility] Surgical education, Interpretation Code 7 Associates guidance, and (88323 ) counseling (procedure) Documentation of Done Invalid 12-17-2016 [facility] Surgical current medications Interpretation Code 12-17-2016 Associates (procedure) (47431) Fall risk No Invalid 12-17-2016 [facility] Gabby gical assessment Interpretation Code 7 Associates (41955) Protein mass conc Done 12-17-2016 - [facility] Surgical 12-17-2016 Associate s (75342) Tobacco smoking Never Invalid 12-17-2016 - W Surgical status [facility] Interpretation Code 12-18-19 17 Associates (17211) Tobacco smoking Former 12-17-2016 - W Surgical status NHIS smoker 12-17-2016 Assoc[facility] noa (24562) Tobacco use CPHS Former Invalid 12-17-2016 - [facility] Surgical smoker Interpretation Code 12-17-2016 Associates (37055) office visit: breast left abscess on 2016-02-15 General categories ASCUS Invalid 02-15-2016 - [facility] Surgical [interpretation] of Interpretation Code 02-15-2016 Associates Cervical or vaginal (10732) smear or scraping by Cyto stain General categories Cyto ASCUS 2015 - [facility] Surgical stain Interp (Cervical 016 Associates or vaginal smear or (99320) scraping) Vital Signs Vital Sign Description Value / Unit Date Location The following section is limited to 5 en tries per type and includes entries from the following time range: 20161217 - 5. BMI (Body Mass Index) 26.82 kg/m2 01-09-2017 - 01-09-2017 [facility] (80846) BMI (Body Mass Index) 26.79 kg/m2 01-01-2017 - 01-01-2017 [facility] (24292) BMI (Body Mass Index) 26.92 kg/m2 12-27-2016 - 12-27-2016 [facility] (70827) BMI (Body Mass Index) 28.08 kg/m2 12-20-2016 - 12-20-2016 [facility] Surgical Associates (46930) BMI (Body Mass Index) 28.4 kg/m2 12-17-2016 - 12-17-2016 [facility] (38454) Body Temperature 98.2 [degF] 01-09-2017 - 01-09-2017 [facility] Gabby gical Associates (62438) Body Temperature 97.8 [degF] 01-01-2017 - 01-01-2017 [facility] Gabby gical Associates (06725) Body Temperature 97.9 [degF] 12-27-2016 [facility] (98877[facility] Body Temperature 97.6 [degF] 12-20-2016 - 12-20-2016 [facility] Gabby gical Associates (26600) Body Temperature 97.81 [degF] 12-17-2016 - 12-17-2016 [facility] Gabby gical Associates (93926) BP Diastolic 58 mm[Hg] 01-09-2017 - 01-09-2017 [facility] Surg ical Associates (50094) BP Diastolic 76 mm[Hg] 01-01-2017 - 01-01-2017 [facility] Surg ical [facility] (51753) BP Diastolic 71 mm[Hg] 12-27-2016 - 12-27-2016 [facility] Surg ical Associates (76271) BP Diastolic 62 mm[Hg] 12-20-2016 - 12-20-2016 [facility] Surg ical [facility] (44898) BP Diastolic 69 mm[Hg] 12-17-2016 - 12-17-2016 [facility] Surg ical [facility] (49035) BP Systolic 94 mm[Hg] 01-09-2017 - 01-09-2017 [facility] Surg ical [facility] (07233) BP Systolic 119 mm[Hg] 12-27-2016 - 12-27-2016 [facility] Surg ical [facility] (85514) BP Systolic 107 mm[Hg] 12-20-2016 - 12-20-2016 [facility] Surg ical [facility] (43233) BP Systolic 102 mm[Hg] 12-17-2016 - 12-17-2016 [facility] Surg ical [facility] (98761) BSA (Body Surface Area) 1.9 m2 12-17-2016 - 12-17-2016 [facility] (72103) Height 167.64 cm 01-09-2017 - 01-09-2017 [facility] Surg ical [facility] (88331) Height 167.64 cm 01-01-2017 - 01-01-2017 [facility] Surg ical [facility] (03141) Height 167.64 cm 12-27-2016 - 12-27-2016 [facility] Surg ical [facility] (15085) Height 167.64 cm 12-25-2016 - 12-25-2016 [facility] Surg ical [facility] (12729) Height 167.64 cm 12-20-2016 - 12-20-2016 [facility] Surg ical [facility] (74249) Pulse (Heart Rate) 67 /min 01-09-2017 - 01-09-2017 [facility] S urgical Associates (28659) Pulse (Heart Rate) 72 /min 01-01-2017 - 01-01-2017 [facility] S urgical Associates (12848) Pulse (Heart Rate) 87 /min 12-27-2016 - 12-27-2016 [facility] S urgical [facility] (65114) Pulse (Heart Rate) 66 /min 12-20-2016 - 12-20-2016 [facility] S urgical [facility] (53043) Pulse (Heart Rate) 85 /min 12-17-2016 - 12-17-2016 [facility] S urgical [facility] (63476) Pulse Oximetry 100 % 01-01-2017 - 01-01-2017 [facility] Surg ical [facility] (51842) Pulse Oximetry 97 % 12-27-2016 - 12-27-2016 [facility] Surg ical [facility] (09129) Pulse Oximetry 99 % 12-20-2016 - 12-20-2016 [facility] Surg ical [facility] (96205) Pulse Oximetry 100 % 12-17-2016 - 12-17-2016 [facility] Surg ical [facility] (05514) Respiratory Rate 20 /min 01-09-2017 - 01-09-2017 [facility] Gabby gical Associates (33239) Respiratory Rate 18 /min 01-01-2017 - 01-01-2017 [facility] Gabby gical [facility] (87913) Respiratory Rate 20 /min 12-27-2016 - 12-27-2016 [facility] Gabby gical [facility] (05885) Respiratory Rate 16 /min 12-20-2016 - 12-20-2016 [facility] Gabby gical [facility] (86025) Respiratory Rate 16 /min 12-17-2016 - 12-17-2016 [facility] Gabby gical [facility] (21153) Weight 75.39 kg 01-09-2017 - 01-09-2017 [facility] Surg ical Associates (53315) Weight 75.3 kg 01-01-2017 - 01-01-2017 [facility] Surg ical [facility] (28473) Weight 75.66 kg 12-27-2016 - 12-27-2016 [facility] Surg ical [facility] (88622) Weight 78.93 kg 12-20-2016 - 12-20-2016 [facility] Surg ical [facility] (17428) Weight 79.83 kg 12-17-2016 - 12-17-2016 [facility] Surg ical [facility] (82636) Procedures Procedure Name Date Provider Location Follow up Appt 1 week 01-09-2017 - Talia Lu MD [facility] S urgical [facility] 01-14-2017 (27235) Dietary management 01-01-2017 - [facility] Surgical Associates education, guidance, and 01-01-2017 (82937) counseling Dietary management 12-27-2016 - [facility] Surgical Associates education, guidance, and 12-27-2016 (82233) counseling Follow Up after 12-27-2016 - Talia Lu MD [facility] Surgica l Associates Imaging/labs 12-27-2016 (49976) Follow up Appt 1 week 12-20-2016 - Talia Lu MD [facility] S urgical Associates 12-27-2016 (21760) Dietary management 12-17-2016 - [facility] Surgical Associates education, guidance, and 12-17-2016 (75606) counseling Plan of Treatment Plan Description Date Location Appointment Appointment 01-15-2017 - [facility] Surgical 01-15-2017 Associates (4469 1) Appointment Appointment 01-09-2017 [facility] Surgical 01-09-2017 Associates (4469 1) Follow up Appt 1 week Follow up Appt 1 week 01-09-2017 - [facility] Surgical 01-14-2017 Associates (4469 1) Incision & Drainage, Incision & Drainage, 01-01-2017 [facility] Morales rgical complex/ multiple complex/ multiple 01-02-2017 Associates ( 33446) Appointment Appointment 12-27-2016 - [facility] Surgical 12-27-2016 Associates (4469 1) Follow Up after Follow Up after 12-27-2016 [facility] Surgical Imaging/labs Imaging/labs 12-27-2016 Associates (4469 1) US Breast(s) US Breast(s) 12-27-2016 - [facility] Surgical 12-27-2016 Associates (4469 1) Appointment Appointment 12-25-2016 - [facility] Surgical 12-25-2016 Associates (4469 1) Incision & Drainage, Incision & Drainage, 12-25-2016 [facility] Morales rgical complex/ multiple complex/ multiple 12-27-2016 Associates ( 55079) Follow up Appt 1 week Follow up Appt 1 week 12-25-2016 - [facility] Surgical 12-27-2016 Associates ([id number] 1) Appointment Appointment 12-20-2016 - [facility] Surgical 12-20-2016 Associates (4469 1) Follow up Appt 1 week Follow up Appt 1 week 12-20-2016 - [facility] Surgical 12-27-2016 Associates (4469 1) Appointment Appointment 12-17-2016 - [facility] Surgical 12-17-2016 Associates (4469 1) *CUAN - Culture, *CUAN - Culture, 12-17-2016 [facility] Surgical Anaerobic, Any Source Anaerobic, Any Source 12-17-2016 Asso ciates (60139) *CUW - Culture, Wound *CUW - Culture, Wound 12-17-2016 [facility] Surgical (Aerobic) (Aerobic) 12-17-2016 Associates (4469 1) Puncture aspiration of Puncture aspiration of 12-17-2016 [facility] Surgical abcess,hematoma,bulla or abcess,hematoma,bulla 12-18-2016 A ssociates (25551) cyst or cyst Patient education WEIGHT%20MANAGEMENT [facility] Surgic al Associates (4469 1) Summary Purpose [...] BE BASED ON THE PRIMARY CLINICAL RECORDS. [employer] [facility] provides no warranty or guarantee of the accuracy or completeness of information in this document. UNRECOGNIZED CONTENT PROVIDED BELOW FOR UNRECOGNIZED SECTION INFORMATION SOURCE DATE CREATED AUTHOR AUTHOR'S ORGANIZATIO N 05/15/2018 [facility] ([place]) DATE CREATED AUTHOR AUTHOR'S ORGANIZATIO N 12/13/2019 [facility]
== END 2019-12-18 10:00 | disposition home or self-care (01) | DRG 807 ==
PROVIDERS: Obstetrics & Gynecology; Admitting Provider Obstetrics & Gynecology; Visit Provider Obstetrics & Gynecology
DX: O71.7 Obstetric hematoma of pelvis (principal); Z37.0 Single live birth; Z3A.39 39 weeks gestation of pregnancy; Z87.891 Personal history of nicotine dependence
CPT/HCPCS: 59025; 59050; 76815; 85025; 85027; 86850; 86900; 86901; 99218; J7120; A4216; G0378

== ENCOUNTER 2021-08-08 11:08 | Outpatient (CLI) | payer OTHER, SELFPAY | END 2021-08-08 23:59 | disposition short-term general hospital (02) | LOC: LAB 11:11 | PROVIDERS: PCP Family Medicine Geriatric Medicine; Referring Provider Family Medicine Geriatric Medicine; Visit Provider Family Medicine Geriatric Medicine | DX: E03.9 Hypothyroidism, unspecified (principal) | CPT/HCPCS: 84443 ==

== ENCOUNTER → 2021-12-07 | Outpatient (CLI) | payer OTHER, SELFPAY ==
[2021-12-12 16:34] LABS: HPV Reflexed? NOT INDICATED
== END | disposition home or self-care (01) ==
PROVIDERS: PCP Family Medicine Geriatric Medicine; Visit Provider Obstetrics & Gynecology
DX: Z12.4 Encounter for screening for malignant neoplasm of cervix (principal); Z11.3 Encounter for screening for infections with a predominantly sexual mode of transmission
CPT/HCPCS: 88175; G0145

== ENCOUNTER 2022-03-30 10:47 | Outpatient (CLI) | payer OTHER, SELFPAY ==
[2022-04-02 05:06] LABS: Chlamydia By Nucleic Acid AMP Negative (Negative)
[2022-04-02 08:36] LABS: Gonococcus By Nucleic Acid AMP Negative (Negative)
== END 2022-03-30 23:59 | disposition home or self-care (01) ==
LOC: WOBLAB 10:49
PROVIDERS: PCP Family Medicine Geriatric Medicine; Visit Provider Student in an Organized Health Care Education/Training Program
DX: O20.0 Threatened abortion (principal); Z3A.00 Weeks of gestation of pregnancy not specified; Z11.3 Encounter for screening for infections with a predominantly sexual mode of transmission
CPT/HCPCS: 36415; 86900; 86901; 87491; 87591

== ENCOUNTER → 2022-04-13 | Outpatient (CLI) | payer OTHER, SELFPAY ==
[2022-04-13 14:15] LABS: Absolute Lymphocyte Count 2.72 X10^3/uL (0.83-4.51); Absolute Neutrophil Count 7.9 X10^3/uL (2.0-7.7); Basophil# 0.03 X10^3/uL; Basophil% 0.3 % (0-1); Eosinophil# 0.04 X10^3/uL; Eosinophils% 0.4 % (0-5); Hematocrit 39.2 % (37-47); Lymphocyte # 2.72 X10^3/ul (0.83-4.51); Lymphocyte % 23.8 % (19-41); Mean Corp Hgb Conc 33.2 g/dL (32-36); Mean Corpuscular Hgb 29.2 pg (27.0-32.0); Mean Corpuscular Volume 88.1 fL (81-99); Mean Platelet Vol. 10.2 fl (6.2-12.0); Monocyte# 0.66 X10^3/uL; Monocyte% 5.8 % (0-10); NRBC Flagged by Analyzer 0 % (0-5); Neutrophil # 7.92 X10^3/uL (2.7-7.7); Neutrophil % 69.3 % (47-70); Platelet Count 256 K/mm3 (150-450); RBC Distribution Width SD 41.9 fl (35.1-43.9); Red Blood Count 4.45 M/mm3 (4.2-5.4); White Blood Count 11.4 K/mm3 (4.4-11.0)
[2022-04-13 15:01] LABS: LDH 151 U/L (84-246)
[2022-04-13 15:44] LABS: HIV - WCH Non-Reactive (Nonreactive); Hepatitis B Surface Antigen Non-Reactive (Nonreactive); Hepatitis C Antibody Non-Reactive (Nonreactive); Rubella IgG Reactive (Nonreactive); Syphilis Antibodies Non-reactive
[2022-04-16 14:35] LABS: AFP, Tumor Marker 8.2 ng/mL (0.0-4.7); Cancer Antigen 125 34.1 U/mL (0.0-38.1); Carbohydrate Ag 19-9 2261 8 U/mL (0-35); Carcinoembryonic Antigen 0.4 ng/mL (0.0-4.7); V-Zoster IgG (Immunity) 723 index (Immune >165)
== END | disposition home or self-care (01) ==
LOC: WOBLAB 14:00
PROVIDERS: PCP Family Medicine Geriatric Medicine; Visit Provider Student in an Organized Health Care Education/Training Program
DX: O20.0 Threatened abortion (principal); O34.80 Maternal care for other abnormalities of pelvic organs, unspecified trimester; N83.202 Unspecified ovarian cyst, left side; Z3A.00 Weeks of gestation of pregnancy not specified
CPT/HCPCS: 36415; 82105; 82378; 83615; 85025; 86301; 86304; 86703; 86762; 86780; 86787; 86803; 87086; 87088; 87340

== ENCOUNTER → 2022-05-25 | Outpatient (CLI) | payer OTHER, SELFPAY ==
--- NOTE | 2022-05-25 13:55 | VDLE_ITS ---
Reason For Study: BLE PAIN RIGHT LEFT GSV is normal. GSV is normal. CFV is compressible, spontaneous, phasic, CFV is compressible, spontaneous, phasic, competent and demonstrates normal competent, and demonstrates normal augmentation. augmentation. FV is compressible, spontaneous, phasic, FV is compressible, spontaneous, phasic, competent and demonstrates normal competent and demonstrates normal augmentation. augmentation. POP V is compressible, spontaneous, phasic, POP V is compressible, spontaneous, phasic, competent and demonstrates normal competent and demonstrates normal augmentation. augmentation. T/P Trunk is compressible. T/P Trunk is compressible. PTV is compressible. PTV is compressible. RT PerV is compressible. LT PerV is compressible. Procedure This is a venous duplex using B-mode, color flow and spectral Doppler. Exam performed in department. VL/Venous Duplex US - Michael Extrem Interpretation Summary No evidence for acute deep venous thrombosis bilateral lower extremities with p atent and compressible bilateral great saphenous veins. Ordering Physician: ALFONSO RAZA Referring Physician: Bladimir Mccarthy Chi Performed By: Suha Aquino, TIM, RVT
== END | disposition home or self-care (01) ==
PROVIDERS: PCP Family Medicine Geriatric Medicine
DX: M79.661 Pain in right lower leg (principal); M79.662 Pain in left lower leg
CPT/HCPCS: 93970

== ENCOUNTER → 2022-05-30 | Outpatient (CLI) | payer OTHER, SELFPAY ==
--- NOTE | 2022-05-30 09:44 | MRI_ITS ---
STUDY: MR PELVIS WITHOUT CONTRAST REASON FOR EXAM: Female, 31 years old. CERVICAL MASS, 15WK TECHNIQUE: Standardized fat and water weighted pulse sequences were obtained in all 3 orthogonal planes. Exam is limited given lack of IV contrast and diffusion-weighted imaging. COMPARISON: None. FINDINGS: Displacement of the urinary bladder anteriorly, under distended. Normal visualized small intestine. Normal visualized colon. There is no pelvic fluid. There is a large somewhat heterogeneous round mass centered in the posterior cervix which shows mildly increased T2 signal intensity and decreased T1 signal intensity. The mass measures 8.7 x 9.1 x 9.9 cm (AP by transverse by craniocaudal). There is displacement of the endocervical canal anteriorly evident on image 25 of series 5. The uterus is not fully included on imaging but intrauterine is partially visualized. No pelvic sidewall adenopathy. Normal visualized pelvic arteries. No bone marrow edema. Normal abdominal wall. MRI/Pelvis (Routine) IMPRESSION: 1. Large (8.7 x 9.1 x 9.9 cm) cervical mass, detailed above. Differential considerations would include cervical leiomyoma and cervical carcinoma. Of note, there does appear to be mass effect on the endocervical canal. Intrauterine partially visualized. Electronically Signed: Jethro Lake (Brooks), at 11:27 EST ,
== END | disposition home or self-care (01) ==
PROVIDERS: PCP Family Medicine Geriatric Medicine
DX: N88.8 Other specified noninflammatory disorders of cervix uteri (principal)
CPT/HCPCS: 72195

== ENCOUNTER → 2022-06-19 | Outpatient (CLI) | payer OTHER, SELFPAY | END | disposition home or self-care (01) | PROVIDERS: PCP Family Medicine Geriatric Medicine; Visit Provider Student in an Organized Health Care Education/Training Program | DX: N76.1 Subacute and chronic vaginitis (principal); Z11.3 Encounter for screening for infections with a predominantly sexual mode of transmission ==

== ENCOUNTER → 2022-07-06 | Outpatient (CLI) | payer OTHER, SELFPAY ==
[2022-07-06 16:27] LABS: Anion Gap 7 (5-15); BUN 8 mg/dL (7-18); Calcium,Total 9.1 mg/dL (8.5-10.1); Chloride 105 mmol/L (98-107); Creatinine, Serum 0.44 mg/dL (0.55-1.02); EST Glomerular Filtration Rate 177 mL/min (>60); Est Glom Filt Rate - Afr Amer 214 mL/min (>60); Glucose 82 mg/dL (74-106); Potassium 3.6 mmol/L (3.5-5.1); Sodium Level 135 mmol/L (136-145)
== END | disposition home or self-care (01) ==
LOC: WOBLAB 14:11
PROVIDERS: PCP Family Medicine Geriatric Medicine; Visit Provider Student in an Organized Health Care Education/Training Program
DX: Z34.82 Encounter for supervision of other normal pregnancy, second trimester (principal)
CPT/HCPCS: 36415; 80048

== ENCOUNTER → 2022-08-03 | Outpatient (CLI) | payer OTHER, SELFPAY ==
[2022-08-03 11:26] LABS: Absolute Lymphocyte Count 2.08 X10^3/uL (0.83-4.51); Absolute Neutrophil Count 6.8 X10^3/uL (2.0-7.7); Basophil# 0.02 X10^3/uL; Basophil% 0.2 % (0-1); Eosinophil# 0.06 X10^3/uL; Eosinophils% 0.6 % (0-5); Hematocrit 36.5 % (37-47); Hemoglobin 12.3 g/dL (12.0-15.0); Lymphocyte # 2.08 X10^3/ul (0.83-4.51); Lymphocyte % 21.6 % (19-41); Mean Corp Hgb Conc 33.7 g/dL (32-36); Mean Corpuscular Hgb 28.6 pg (27.0-32.0); Mean Corpuscular Volume 84.9 fL (81-99); Mean Platelet Vol. 10.4 fl (6.2-12.0); Monocyte# 0.64 X10^3/uL; Monocyte% 6.7 % (0-10); NRBC Flagged by Analyzer 0 % (0-5); Neutrophil # 6.77 X10^3/uL (2.7-7.7); Neutrophil % 70.5 % (47-70); Platelet Count 242 K/mm3 (150-450); RBC Distribution Width CV 13.1 % (11.6-14.6); RBC Distribution Width SD 40.1 fl (35.1-43.9); White Blood Count 9.6 K/mm3 (4.4-11.0)
[2022-08-03 11:37] LABS: ALB/GLOB Ratio 0.8 RATIO (0.9-2.4); AST(SGOT) 11 U/L (15-37); Alanine Aminotransfer ALT/SGPT 23 U/L (13-56); Albumin, Serum 2.8 g/dL (3.2-5.0); Alkaline Phosphatase 103 U/L (45-117); Anion Gap 8 (5-15); BUN 7 mg/dL (7-18); BUN/Creat Ratio 13.9 RATIO (10-20); Calcium,Total 8.6 mg/dL (8.5-10.1); Chloride 108 mmol/L (98-107); EST Glomerular Filtration Rate 153 mL/min (>60); Est Glom Filt Rate - Afr Amer 186 mL/min (>60); Globulin 3.7 g/dL (2.2-4.2); Glucose 101 mg/dL (74-106); Glucose Challenge Gest 1H 50g 101 mg/dL (70-140); Potassium 3.5 mmol/L (3.5-5.1); Protein, Total 6.5 g/dL (6.4-8.2); Sodium Level 139 mmol/L (136-145)
== END | disposition home or self-care (01) ==
PROVIDERS: PCP Family Medicine Geriatric Medicine; Visit Provider Obstetrics & Gynecology
DX: Z34.82 Encounter for supervision of other normal pregnancy, second trimester (principal)
CPT/HCPCS: 36415; 80053; 82950; 85025

== ENCOUNTER → 2022-08-31 | Outpatient (CLI) | payer OTHER, SELFPAY ==
[2022-08-31 11:39] LABS: Anion Gap 6 (5-15); BUN 8 mg/dL (7-18); BUN/Creat Ratio 17.7 RATIO (10-20); Calcium,Total 9.1 mg/dL (8.5-10.1); Chloride 108 mmol/L (98-107); Creatinine, Serum 0.45 mg/dL (0.55-1.02); EST Glomerular Filtration Rate 174 mL/min (>60); Est Glom Filt Rate - Afr Amer 210 mL/min (>60); Glucose 79 mg/dL (74-106); Sodium Level 138 mmol/L (136-145)
== END | disposition home or self-care (01) ==
LOC: WOBLAB 11:03
PROVIDERS: PCP Family Medicine Geriatric Medicine; Visit Provider Student in an Organized Health Care Education/Training Program
DX: Z34.82 Encounter for supervision of other normal pregnancy, second trimester (principal)
CPT/HCPCS: 36415; 80048

== ENCOUNTER → 2022-09-27 | Outpatient (CLI) | payer OTHER, SELFPAY ==
[2022-09-27 10:59] LABS: Absolute Lymphocyte Count 2.69 X10^3/uL (0.83-4.51); Absolute Neutrophil Count 7.6 X10^3/uL (2.0-7.7); Basophil# 0.03 X10^3/uL; Basophil% 0.3 % (0-1); Eosinophil# 0.08 X10^3/uL; Eosinophils% 0.7 % (0-5); Hematocrit 38.4 % (37-47); Hemoglobin 12.1 g/dL (12.0-15.0); Lymphocyte # 2.69 X10^3/ul (0.83-4.51); Lymphocyte % 23.7 % (19-41); Mean Corp Hgb Conc 31.5 g/dL (32-36); Mean Corpuscular Volume 82.6 fL (81-99); Mean Platelet Vol. 10.6 fl (6.2-12.0); Monocyte# 0.89 X10^3/uL; Monocyte% 7.8 % (0-10); NRBC Flagged by Analyzer 0 % (0-5); Neutrophil % 66.9 % (47-70); Platelet Count 260 K/mm3 (150-450); RBC Distribution Width CV 13.7 % (11.6-14.6); RBC Distribution Width SD 40.9 fl (35.1-43.9); Red Blood Count 4.65 M/mm3 (4.2-5.4); White Blood Count 11.4 K/mm3 (4.4-11.0)
[2022-09-27 11:16] LABS: Anion Gap 9 (5-15); BUN 8 mg/dL (7-18); Calcium,Total 8.9 mg/dL (8.5-10.1); Chloride 105 mmol/L (98-107); Creatinine, Serum 0.53 mg/dL (0.55-1.02); EST Glomerular Filtration Rate 143 mL/min (>60); Est Glom Filt Rate - Afr Amer 174 mL/min (>60); Glucose 89 mg/dL (74-106); Potassium 3.9 mmol/L (3.5-5.1); Sodium Level 137 mmol/L (136-145)
== END | disposition home or self-care (01) ==
LOC: WOBLAB 10:07
PROVIDERS: PCP Family Medicine Geriatric Medicine; Visit Provider Obstetrics & Gynecology
DX: Z34.83 Encounter for supervision of other normal pregnancy, third trimester (principal)
CPT/HCPCS: 36415; 80048; 85025

== ENCOUNTER → 2022-10-22 | Outpatient (CLI) | payer OTHER, SELFPAY | END | disposition home or self-care (01) | LOC: LABSPEC 12:18 | PROVIDERS: PCP Family Medicine Geriatric Medicine; Referring Provider Nurse Practitioner; Visit Provider Nurse Practitioner | DX: Z36.85 Encounter for antenatal screening for Streptococcus B (principal) | CPT/HCPCS: 87081 ==

== ENCOUNTER → 2023-03-19 | Outpatient (CLI) | payer OTHER, SELFPAY ==
[2023-03-19 13:06] LABS: Thyroid Stim Hormone (TSH) 1.16 uIU/mL (0.358-3.74)
== END | disposition home or self-care (01) ==
LOC: POLAB3 11:48
PROVIDERS: PCP Family Medicine Geriatric Medicine; Visit Provider Family Medicine Geriatric Medicine
DX: R53.83 Other fatigue (principal)
CPT/HCPCS: 36415; 84443

== ENCOUNTER → 2023-04-17 | Outpatient (CLI) | payer OTHER, SELFPAY ==
[2023-04-22 18:07] LABS: Lyme IgG P18 Ab Absent (.); Lyme IgG P23 Ab Absent (.); Lyme IgG P28 Ab Absent (.); Lyme IgG P30 Ab Absent (.); Lyme IgG P39 Ab Absent (.); Lyme IgG P41 Ab Absent (.); Lyme IgG P45 Ab Absent (.); Lyme IgG P58 Ab Absent (.); Lyme IgG P66 Ab Absent (.); Lyme IgG P93 Ab Absent (.); Lyme IgG WB Interpretation Negative (.); Lyme IgM P23 Ab Absent (.); Lyme IgM P39 Ab Absent (.); Lyme IgM P41 Ab Absent (.); Lyme IgM WB Interpretation Negative (.)
== END | disposition home or self-care (01) ==
LOC: POLAB3 13:41
PROVIDERS: PCP Family Medicine Geriatric Medicine; Visit Provider Family Medicine Geriatric Medicine
DX: A69.20 Lyme disease, unspecified (principal); W57.XXXA Bitten or stung by nonvenomous insect and other nonvenomous arthropods, initial encounter
CPT/HCPCS: 36415; 86617

== ENCOUNTER → 2023-05-08 | Outpatient (CLI) | payer OTHER, SELFPAY ==
--- NOTE | 2023-05-08 16:26 | US_ITS ---
STUDY: ULTRASOUND OF THE FEMALE PELVIS - COMPLETE REASON FOR EXAM: Female, 32 years old. UTERINE FIBROIDS LMP: Unknown. TECHNIQUE: Transabdominal and Transvaginal TECHNICAL QUALITY: Adequate. COMPARISON: None. FINDINGS: The uterus is anteverted and is in a midline position. The uterus measures 20.3 x 7.4 x 8.5 cm. Normal uterine cervix. The endometrium measures 6 mm in thickness, and is hyperechoic. The endometrium is partially obscured. There is diffuse myometrial mass. I.U.D. - The patient does not have an I.U.D. The right ovary is non-visualized. The left ovary is non-visualized. There is no fluid in the cul-de-sac. The visualized bladder is unremarkable. US/Transvaginal Non- IMPRESSION: Enlargement of the uterus with suggesting diffuse fibroid versus adenomyosis. Consider MRI for further characterization. Electronically Signed: Dipak Lozoya MD at 23:55 EDT ,
--- NOTE | 2023-05-08 16:26 | US_ITS ---
STUDY: ULTRASOUND OF THE FEMALE PELVIS - COMPLETE REASON FOR EXAM: Female, 32 years old. UTERINE FIBROIDS LMP: Unknown. TECHNIQUE: Transabdominal and Transvaginal TECHNICAL QUALITY: Adequate. COMPARISON: None. FINDINGS: The uterus is anteverted and is in a midline position. The uterus measures 20.3 x 7.4 x 8.5 cm. Normal uterine cervix. The endometrium measures 6 mm in thickness, and is hyperechoic. The endometrium is partially obscured. There is diffuse myometrial mass. I.U.D. - The patient does not have an I.U.D. The right ovary is non-visualized. The left ovary is non-visualized. There is no fluid in the cul-de-sac. The visualized bladder is unremarkable. US/Pelvic (Non ) IMPRESSION: Enlargement of the uterus with suggesting diffuse fibroid versus adenomyosis. Consider MRI for further characterization. Electronically Signed: Dipak Lozoya MD at 23:55 EDT ,
== END | disposition home or self-care (01) ==
LOC: US 16:24
PROVIDERS: PCP Family Medicine Geriatric Medicine
DX: D25.9 Leiomyoma of uterus, unspecified (principal)
CPT/HCPCS: 76830; 76856

== ENCOUNTER → 2023-06-18 | Outpatient (CLI) | payer OTHER, SELFPAY ==
--- NOTE | 2023-06-18 11:30 | MRI_ITS ---
STUDY: MR PELVIS WITH T WITHOUT CONTRAST REASON FOR EXAM: Female, 32 years old. FIBRIOD MONITORING, PLANNING SX TECHNIQUE: Standardized fat and water weighted pulse sequences were obtained in all 3 orthogonal planes, pre-and post contrast administration. IV 20 cc clariscan was administered for the contrast portion of the examination. COMPARISON: Prior study dated: 05/30/2022 FINDINGS: Normal urinary bladder. Normal visualized small intestine. Normal visualized colon. Interval increase in size of large heterogeneous fibroid which is difficult to measure but is at least 9.9 x 8.1 x 12.7 cm. It causes displacement of the endocervical canal. Normal visualized adnexa. There is no pelvic fluid. Normal visualized pelvic arteries. Normal osseous structures. Normal abdominal wall. MRI/Pelvis W/WO Contrast IMPRESSION: Interval increase in size of large cervical fibroid measuring at least 12.7 x 9.9 x 8.1 cm. Electronically Signed: Sukhjinder Perez MD at 20:30 EST ,
== END | disposition home or self-care (01) ==
LOC: MRI 11:07
PROVIDERS: PCP Family Medicine Geriatric Medicine
DX: D25.9 Leiomyoma of uterus, unspecified (principal)
CPT/HCPCS: 72197; A9575

== ENCOUNTER 2023-08-31 00:15 | Emergency (ER) | payer OTHER, SELFPAY ==
[2023-08-31 00:18] VITALS: BP 150/84; PULSE 122; RESP 18; TEMP 36.8; O2SAT 97; BMI 37.0
--- OUTSIDE RECORDS SUMMARY | 2023-08-31 00:38 | XMS RPT_ITS | CCD ---
Author Name Unknown Address [address] [place] [address] Organization [facility] Care Team Providers Care In Home Sales Representative Name Role Phone Aly JONES, Talia Cottrell Unavailable Diogo Mendez MD Unavailable LIA Gómez RN, Zainab Abrams Unavailable Abel Lu MD, Talia Cottrell Unavailable Diogo Mendez MD Unavailable DR KAUSHIK ROJO MD Primary Care Physician LUZ MARINA JONES., DR. HAMILTON Attending Hany ROJO MD., DR. PANIAGUA Primary Care Abel RAZA MD., DR. HAMILTON Attending Hany ROJO MD., DR. PANIAGUA Primary Care Abel RAZA MD., DR. HAMILTON Attending Hany ROJO MD., DR. PANIAGUA Primary Care Abel RAZA MD., DR. HAMILTON Attending Hany ROJO MD., DR. PANIAGUA Primary Care Abel YANG MD, ALESSANDRO [employer] Unavailable BRIAN ESTEBAN MD Consulting Unavailable LUZ MARINA GAMBINO, DR. HAMILTON Attending Hany ROJO MD., DR. PANIAGUA Primary Care Unavailjustino pritchard Unavailable Primary Care Provider Unavailjustino e Unavailable Primary Care Provider UnavailHENRIETTA Vanessa Attending Unavailable AKANKSHA PRIMARY MD REY Primary Care Unavailable LEONCIO MENDEZ Referring Unavailable NO PRIMARY MD REY Primary Care Unavailable JLUIS MARTINS Attending Unavailable SONIA MENDEZ Referring Unavailable NO MIREYA LE MD Primary Care Unavailable JLUIS MARTINS Attending Unavailable SONIA MENDEZ Referring Unavailable SHANTA ARMSTRONG Attending Unavailable SHANTA ARMSTRONG Referring Unavailable ALIA, MELISSA-CHI Primary Care Unavailable SHANTA ARMSTRONG Attending Unavailable SHANTA ARMSTRONG Referring Unavailable ALIA, MELISSA-CHI Primary Care Unavailable ALIA, MELISSA-CHI Primary Care Unavailable JEY BOWEN Attending Unavailable MENDEZ, SONIA Eliza Referring Unavailable EUFEMIA DUNN Attending Unavailable ALIA, MELISSA-CHI Primary Care Unavailable DULCE MANJARREZ Attending Unavailjustino pricthard ALIA, MELISSA-CHI Primary Care Unavailable SONIA MENDEZ Referring Unavailable NO PRIMARY CARE, Primary Care Unavailable SHANTA ARMSTRONG Attending Unavailable SONIA MENDEZ Referring Unavailable NO PRIMARY CAREMD Primary Care Unavailable ANDREA SONIA N Referring Unavailable HENRIETTA GALLEGOS Attending Unavailable Melissa Rojo MDSharif Primary Care Provider ADRI COTA Attending Unavailable SHANTA ARMSTRONG Referring Unavailable ALIA, MELISSA-CHI Primary Care Unavailable ADRI COTA Attending Unavailable ALIA, MELISSA-CHI Primary Care Unavailable DULCE MANJARREZ Admitting Unavailable DULCE MANJARREZ Attending Unavailable Allergies Allergy Classification Reported Allergen(s) Allergy Type Date of Onset Reaction(s) Facility (12 sources) Penicillins (Antibiotic) drug allergy 7 [facility] Work Phone: (4 sources) Penicillin; Translations: [penicillin] Drug Allergy Itching (finding), Eruption of skin (disorder), Weal (disorder) [facility] (7 sources) Penicillin G Drug Allergy 3 [facility] (1 source) Penicillins; Translations: [PENICILLINS] Propensity to adverse reactions to drug (disorder) 2 [facility] Repository Medications Current Medications Medication Drug Class(es) Dates Sig (Normalized) Sig (Original) 8 hr acetaminophen 650 mg extended release oral tablet (1 source) Start: 05-23-2022 Tylenol 8 Hour 650 mg oral tablet, extended release Dose : 1,300 mg = 2 tab(s), Oral, q8h, # 24 tab(s), 0 Refill(s), Pharmacy: [facility], 167.8, cm, 05/23/22 9:22:00 EST, Height Start Date: 05/23/22 Status: Ordered docusate sodium 100 mg oral capsule (3 sources) Start: 11-21-2022 End: 12-21-2022 take 1 capsule by mouth twice daily as needed for constipation docusate sodium 100 MG capsule Take 1 capsule (100 mg) by mouth 2 times daily as needed for constipation. 60 capsule 0 11/21/2022 12/21/2022 Active Completed/Discontinued Medications Medication Drug Class(es) Dates Sig (Normalized) Sig (Original) acetaminophen 325 mg / oxyCODONE hydrochloride 5 mg oral tablet (8 sources) Opioid Agonist Start: 12-20-2016 take 1-2 tablets by mouth every six hours as needed for pain OXYCODONE-ACETAMIN OPHEN 5-325 MG TABS One to Two tablets by mouth every 6 hours PRN pain OXYCODONE-ACETAMIN OPHEN [id number] Talia Lu MD clindamycin 300 mg oral capsule (12 sources) Lincosamide Antibacterial take 1 tablet by mouth four times daily CLINDAMYCIN HCL 300 MG CAPS One tablet by mouth four times daily CLINDAMYCIN HCL [id number] Talia Lu MD ferrous sulfate 325 mg oral tablet (5 sources) Start: 11-21-2022 End: 11-21-2023 take 1 tablet by mouth once daily at breakfast ferrous sulfate 325 (65 Fe) MG tablet Take 1 tablet (325 mg) by mouth daily (with breakfast). 30 tablet 0 11/21/2022 03/08/2023 Discontinued (Therapy completed) ibuprofen 600 mg oral tablet (2 sources) Nonsteroidal Anti-inflammatory Drug Start: 11-21-2022 End: 12-05-2022 take 1 tablet by mouth every six hours as needed for pain ibuprofen 600 MG tablet Take 1 tablet (600 mg) by mouth every 6 hours as needed for mild pain (1-3) for up to 14 days. 56 tablet 0 11/21/2022 12/05/2022 norethindrone 0.35 mg oral tablet (7 sources) Start: 11-21-2022 End: 11-21-2023 take 1 tablet by mouth once daily norethindrone (Micronor) 0.35 MG tablet Take 1 tablet (0.35 mg) by mouth daily. Take starting 3 weeks 84 tablet 3 11/21/2022 05/09/2023 Discontinued (Therapy completed) sulfamethoxazole 800 mg / trimethoprim 160 mg oral tablet (13 sources) Dihydrofolate Reductase Inhibitor Antibacterial, Sulfonamide Antimicrobial Start: 12-25-2016 take 1 tablet by mouth twice daily BACTRIM DS 800-160 MG TABS One tablet by mouth twice daily SULFAMETHOXAZOLE-T RIMETHOPRIM [id number] Talia Lu MD Problems Active Problems Problem Classification Problem Date Documented Date Episodic/Chronic Benign neoplasm of uterus (13 sources) Cervical fibroid; Translations: [Leiomyoma of uterus, unspecified] Onset: 11-19-2022 11-19-2022 Episodic Genitourinary symptoms and ill-defined conditions (4 sources) Retention of urine; Translations: [Retention of urine, unspecified] Onset: 05-09-2023 05-09-2023 Episodic Other female genital disorders (1 source) Noninflammatory cervical disorder; Translations: [Other specified noninflammatory disorders of cervix uteri] Onset: 05-23-2022 Episodic Other nutritional; endocrine; and metabolic disorders (12 sources) Overweight; Translations: [Overweight] Onset: 12-17-2016 12-17-2016 Chronic Other and delivery including normal (4 sources) ; Translations: [Normal ] Onset: 05-23-2022 05-10-2022 Episodic Past or Other Problems Problem Classification Problem Date Documented Date Episodic/Chronic Bacterial infection (8 sources) Methicillin resistant Staphylococcus aureus infection; Translations: [Methicillin resistant Staphylococcus aureus infection, unspecified site] Onset: 12-20-2016 12-20-2016 Episodic Deficiency and other anemia (12 sources) Anemia; Translations: [Anemia, unspecified] Onset: 12-17-2016 12-17-2016 Episodic Skin and subcutaneous tissue infections (12 sources) Abscess; Translations: [Cutaneous abscess, unspecified] Onset: 12-17-2016 12-17-2016 Episodic Results Test Name Value Interpretation Reference Range Facil ity Vital Signs Date Time Vital Sign Value Performing Clinician Facility 03-08-2023 11:00-0400 Body height 170.2 cm Adri Cota MD Work Phone: [facility] 03-08-2023 11:00-0400 Body mass index (BMI) [Ratio] 35.24 kg/m2 Adri Cota MD Work Phone: [facility] 03-08-2023 11:00-0400 Body weight 102.06 kg Adri Cota MD Work Phone: [facility] 03-08-2023 11:00-0400 Diastolic blood pressure 79 mm[Hg] Adri Cota MD Work Phone: [facility] 03-08-2023 11:00-0400 Heart rate 84 /min Adri Cota MD Work Phone: [facility] 03-08-2023 11:00-0400 Systolic blood pressure 115 mm[Hg] Adri Cota MD Work Phone: [facility] 05-23-2022 14:08-0500 Body temperature 96.98 [degF] ALFONSO RAZA MD [facility] 05-23-2022 14:08-0500 Diastolic Blood Pressure Non-Invasive 64 1 ALFONSO RAZA MD [facility] 05-23-2022 14:08-0500 Heart rate 92 /min ALFONSO RAZA MD [facility] 05-23-2022 14:08-0500 Reason For Taking VItal Signs ALFONSO RAZA MD [facility] 05-23-2022 14:08-0500 Respiratory rate 16 /min ALFONSO RAZA MD [facility] 05-23-2022 14:08-0500 Systolic Blood Pressure Non-Invasive 106 1 ALFONSO RAZA MD [facility] 05-23-2022 13:50-0500 Body temperature 97.34 [degF] ALFONSO RAZA MD [facility] 05-23-2022 13:50-0500 Diastolic Blood Pressure Non-Invasive 52 1 ALFONSO RAZA MD [facility] 05-23-2022 13:50-0500 Heart rate 96 /min ALFONSO RAZA MD [facility] 05-23-2022 13:50-0500 Mean blood pressure 62 mm[Hg] ALFONSO RAZA MD [facility] 05-23-2022 13:50-0500 Respiratory rate 16 /min ALFONSO RAZA MD [facility] 05-23-2022 13:50-0500 Systolic Blood Pressure Non-Invasive 101 1 ALFONSO RAZA MD [facility] 05-23-2022 13:35-0500 Diastolic Blood Pressure Non-Invasive 45 1 ALFONSO RAZA MD [facility] 05-23-2022 13:35-0500 Heart rate 92 /min ALFONSO RAZA MD [facility] 05-23-2022 13:35-0500 Mean blood pressure 57 mm[Hg] ALFONSO RAZA MD [facility] 05-23-2022 13:35-0500 Respiratory rate 16 /min ALFONSO ARZA MD [facility] 05-23-2022 13:35-0500 Systolic Blood Pressure Non-Invasive 97 1 ALFONSO RAZA MD [facility] 05-23-2022 13:16-0500 Heart rate 93 /min ALFONSO RAZA MD [facility] 05-23-2022 13:16-0500 Mean blood pressure 60 mm[Hg] ALFONSO RAZA MD [facility] 05-23-2022 12:45-0500 Respiratory Rate - Anes 0 br/min ALFONSO RAZA MD [facility] 05-23-2022 12:43-0500 Body temperature 96.98 [degF] ALFONSO RAZA MD [facility] 05-23-2022 12:40-0500 Respiratory Rate - Anes 0 br/min ALFONSO RAZA MD [facility] 05-23-2022 12:35-0500 Respiratory Rate - Anes 17 br/min ALFONSO RAZA MD [facility] 05-23-2022 09:17-0500 Body height 167.8 cm ALFONSO RAZA MD [facility] 05-23-2022 09:17-0500 Body weight 98.9 kg ALFONSO RAZA MD [facility] 05-23-2022 09:17-0500 Heart rate 89 /min ALFONSO RAZA MD [facility] 05-10-2022 10:46-0400 Body height 159 cm ALFONSO RAZA MD [facility] 05-10-2022 10:46-0400 Body temperature 97.34 [degF] ALFONSO RAZA MD [facility] 05-10-2022 10:46-0400 Body weight 101.3 kg ALFONSO RAZA MD [facility] 05-10-2022 10:46-0400 diastolic 79 mm[Hg] ALFONSO RAZA MD [facility] 05-10-2022 10:46-0400 Heart rate 92 /min ALFONSO RAZA MD [facility] 05-10-2022 10:46-0400 systolic 128 mm[Hg] ALFONSO RAZA MD [facility] 01-09-2017 13:23-0400 BMI (Body Mass Index) 26.82 kg/m2 Talia Lu MD [facility] Work Phone: 01-09-2017 13:23-0400 Body Temperature 98.2 [degF] Talia Lu MD [facility] Work Phone: 01-09-2017 13:0400 BP Diastolic 58 mm[Hg] Talia Lu MD [facility] Work Phone: 01-09-2017 13:23-0400 BP Systolic 94 mm[Hg] Talia Lu MD [facility] Work Phone: 01-09-2017 13:0400 Height 167.64 cm Talia Lu MD [facility] Work Phone: 01-09-2017 13:-0400 Pulse (Heart Rate) 67 /min Talia Lu MD [facility] Work Phone: 01-09-2017 13:0400 Respiratory Rate 20 /min Talia Lu MD [facility] Work Phone: 01-09-2017 13:0400 Weight 75.39 kg Talia Lu MD [facility] Work Phone: 01-01-2017 14:12-0400 BMI (Body Mass Index) 26.79 kg/m2 Diogo Mendez MD [facility] Work Phone: 01-01-2017 14:120400 Body Temperature 97.8 [degF] Diogo Mendez MD [facility] Work Phone: 01-01-2017 14:12-0400 BP Diastolic 76 mm[Hg] Diogo Mendez MD [facility] Work Phone: 01-01-2017 14:120400 Height 167.64 cm Diogo Mendez MD [facility] Work Phone: 01-01-2017 14:12-0400 Pulse (Heart Rate) 72 /min Diogo Mendez MD [facility] Work Phone: 01-01-2017 14:12-0400 Pulse Oximetry 100 % Diogo Mendez MD [facility] Work Phone: 01-01-2017 14:12-0400 Respiratory Rate 18 /min Diogo Mendez MD [facility] Work Phone: 01-01-2017 14:120400 Weight 75.3 kg Diogo Mendez MD [facility] Work Phone: 12-27-2016 10:33-0400 BMI (Body Mass Index) 26.92 kg/m2 Talia Lu MD [facility] Surgical [facility] Work Phone: 12-27-2016 10:33-0400 Body Temperature 97.9 [degF] Talia Lu MD [facility] Work Phone: 12-27-2016 10:33-0400 BP Diastolic 71 mm[Hg] Talia Lu MD [facility] Surgical [facility] Work Phone: 12-27-2016 10:33-0400 BP Systolic 119 mm[Hg] Talia Lu MD [facility] Surgical [facility] Work Phone: 12-27-2016 10:33-0400 Height 167.64 cm Talia Lu MD [facility] Surgical [facility] Work Phone: 12-27-2016 10:33-0400 Pulse (Heart Rate) 87 /min Talia Lu MD [facility] Work Phone: 12-27-2016 10:33-0400 Pulse Oximetry 97 % Talia Lu MD [facility] Surgical [facility] Work Phone: 12-27-2016 10:33-0400 Respiratory Rate 20 /min Talia Lu MD [facility] Surgical [facility] Work Phone: 12-27-2016 10:33-0400 Weight 75.66 kg Talia Lu MD [facility] Work Phone: 12-25-2016 10:45-0400 Height 167.64 cm Talia Lu MD [facility] Work Phone: 12-20-2016 09:150400 BMI (Body Mass Index) 28.08 kg/m2 Talia Lu MD [facility] Work Phone: 12-20-2016 09:150400 Body Temperature 97.6 [degF] Talia Lu MD [facility] Work Phone: 12-20-2016 09:15-0400 BP Diastolic 62 mm[Hg] Talia Lu MD [facility] Work Phone: 12-20-2016 09:15-0400 BP Systolic 107 mm[Hg] Talia Lu MD [facility] Work Phone: 12-20-2016 09:15-0400 Height 167.64 cm Talia Lu MD [facility] Work Phone: 12-20-2016 09:15-0400 Pulse (Heart Rate) 66 /min Talia Lu MD [facility] Surg al [facility] Work Phone: 12-20-2016 09:15-0400 Pulse Oximetry 99 % Talia Lu MD [facility] Surgical [facility] Work Phone: 12-20-2016 09:15-0400 Respiratory Rate 16 /min Talia Lu MD [facility] Surgical [facility] Work Phone: 12-20-2016 09:15-0400 Weight 78.93 kg Talia Lu MD [facility] Surgical [facility] Work Phone: 12-17-2016 15:23-0400 BMI (Body Mass Index) 28.4 kg/m2 Talia Lu MD [facility] Surgical [facility] Work Phone: 12-17-2016 15:23-0400 Body Temperature 97.81 [degF] Talia Lu MD [facility] Work Phone: 12-17-2016 15:23-0400 Body Temperature 97.8 [degF] Talia Lu MD [facility] Work Phone: 12-17-2016 15:23-0400 BP Diastolic 69 mm[Hg] Talia Lu MD [facility] Work Phone: 12-17-2016 15:23-0400 BP Systolic 102 mm[Hg] Talia Lu MD [facility] Work Phone: 12-17-2016 15:23-0400 BSA (Body Surface Area) 1.9 m2 Talia Lu MD [facility] Work Phone: 12-17-2016 15:23-0400 Height 167.64 cm Talia Lu MD [facility] Work Phone: 12-17-2016 15:23-0400 Pulse (Heart Rate) 85 /min Talia Lu MD [facility] Work Phone: 12-17-2016 15:23-0400 Pulse Oximetry 100 % Talia Lu MD [facility] Work Phone: 12-17-2016 15:23-0400 Respiratory Rate 16 /min Talia Lu MD [facility] Work Phone: 12-17-2016 15:23-0400 Weight 79.83 kg Talia Lu MD [facility] Work Phone: Encounters Encounter Date Encounter Type Care Provider Facility Start: 05-09-2023 End: 05-09-2023 ambulatory ADRI COTA [facility] Start: 05-09-2023 End: 05-09-2023 Office outpatient visit 40 minutes Adri Cota MD Work Phone: [facility] Procedures Date Procedure Procedure Detail Performing Clinician Start: 01-09-2017 End: 01-14-2017 Follow up Appt 1 week Talia Lu MD Work Phone: Start: 01-01-2017 End: 01-01-2017 Dietary management education, guidance, and counseling Talia Lu MD Start: 12-27-2016 End: 12-27-2016 Dietary management education, guidance, and counseling Diogo Mendez MD Start: 12-27-2016 End: 12-27-2016 Follow Up after Imaging/labs Talia Lu MD Work Phone: Start: 12-20-2016 End: 12-27-2016 Follow up Appt 1 week Talia Lu MD Work Phone: Start: 12-17-2016 End: 12-17-2016 Dietary management education, guidance, and counseling Talia Lu MD Start: 04-09-2012 Tonsillectomy and adenoidectomy ALFONSO RAZA MD Plan of Treatment Date Care Activity Detail Author Start: 2042 Zoster Vaccines (1 o f 2) Zoster Vaccines (1 of 2) [facility] Start: 05-09-2023 End: 05-09-2024 MR Pelvis WO and W contrast IV MR pelvis w and wo contrast Imaging Routine Fibroid of cervix Expected: 05/09/2023, Expires: 05/09/2024 [facility] Work Phone: Immunizations Immunization Date Immunization Notes Care Provider Fa [facility] 02-13-2007 hepatitis B pediatri c vaccine ALFONSO RAZA MD [facility] 02-13-2007 HPV, unspecified formulation Adri Cota MD Work Phone: [facility] 01-31-2006 hepatitis B pediatri c vaccine ALFONSO RAZA MD [facility] 01-31-2005 hepatitis B pediatri c vaccine ALFONSO RAZA MD [facility] 01-31-2005 measles/mumps/rubell a virus vaccine ALFONSO RAZA MD [facility] NEGATED: Highlighted row has not occurred!11-20-2022 measles, mumps and rubella virus vaccine Adri Cota MD Work Phone: [facility] Payers Date Payer Category Payer Private Health Insurance [employer] [id number] 2022-Present [address] [place] [address] Commercial [id number] 2022 Unknown [id number] 2022 Unknown [id number] 1992 Unknown [id number] 627 1992 Unknown [id number] 627 1992 Unknown [id number] 627 1992 Unknown [id number] 627 1992 Unknown [id number] 627 1992 Unknown [id number] 479 1992 Unknown [id number] 479 1992 Unknown [id number] 479 1992 Unknown [id number] 479 1992 Unknown [id number] 479 1992 Unknown [id number] 479 1992 Unknown [id number] 479 1992 Unknown [id number] 479 1992 Unknown [id number] 479 1992 Unknown [id number] 479 Social History Date Type Detail Facility Start: 04-17-2022 End: 11-19-2022 Tobacco smoking status Never smoked tobacco (finding) [facility] Sex Assigned At Sex [facility] Start: 11-19-2022 Tobacco use and exposure Smokeless tobacco non-user [facility] Start: 11-19-2022 End: 03-08-2023 Alcohol intake Current drinker of alcohol (finding) [facility] Start: 11-19-2022 History SDOH Transport Med 2 [facility] Start: 11-19-2022 History SDOH Housing Places Lived 1 [facility] Start: 11-19-2022 Alcohol Comment socially [facility] Start: 03-02-2022 [facility] Start: 1990 Sex Assigned At Not on file [facility] Start: 11-09-2022 End: 03-08-2023 Exposure to SARS-CoV-2 (event) Not sure [facility] Start: 11-19-2022 End: 03-08-2023 History of Social function [facility] Start: 11-19-2022 End: 03-08-2023 Tobacco use panel [facility] In the past 12 month s, has lack of transportation kept you from medical appointments or from getting medications? No [facility] In the past 12 month s, was there a time when you were not able to pay the mortgage or rent on time? No [facility] Functional Status Date Assessment Result Facility 05-23-2022 Functional Status Awake, Bathroom privileges [facility] 05-23-20[address] [facility] 05-23-2022 Functional Status [facility] 05-23-2022 Functional Status Maintained [facility] Mental Status Date Assessment Result Facility 05-23-2022 Mental Status Oriented x 4 [facility] 05-23-2022 Mental Status [facility] Clinical Notes 05-20-2022 to 05-09-2023 Assessment & Plan Note - Adri Cota MD - 05/09/2023 11:56 AM EDTAssessment & Plan Note - Adri Cota MD - 05/09/2023 11:56 AM EDConnie Cota MD - 05/09/2023 11:30 AM EDTRadiology Note Date & Type Note Facility 05-09-2023 Note We discussed the r/b /a of major surgery via laparoscopic myomectomy and reviewed the steps of the procedure in depth. Patient also understands the risk of infertility due to possible tubal damage or intrauterine scarring if the cavity if the endometrium is entered. We also discussed the remote risk of hysterectomy for life saving measure with life threatening bleeding or post operative pyometra. We reviewed future consultation with her OB or MFM provider for current recommendations and chances or uterine rupture. We discussed expectations for menstrual patterns post operatively. Per ACOG Of those women who had a single leiomyoma, 27% had recurrent tumors and 11% required hysterectomy. Of those women who had multiple leiomyomas, 59% experienced recurrent tumors. Of the women in the multiple leiomyoma group, 26% required repeat myomectomy, hysterectomy, or both procedures. We discussed the remote risk of encountering a uterine sarcoma and current FDA numbers and the risk of upstaging that can occur by performing the surgery in a minimally invasive fashion. The patient understands that patient may need future surgery and/or radiation due to this. We also discussed the poor prognosis and 5 year survival if this were to occur. Also reviewed chance of future parasitic myoma. We discussed contained and uncontained morcellation are dependent on specimen size and reviewed contained tissue extraction with scalpel morcellation. Reviewed power morcellation and pertinent FDA information. The FDA currently estimates that a hidden uterine sarcoma may be present in approximately 1 in 225 to 1 in 580 women undergoing surgery for uterine fibroids based on recent publications. The FDA also estimates that a leiomyosarcoma (a specific type of uterine sarcoma) may be present in approximately 1 in 495 to 1 in 1100 women undergoing surgery for uterine fibroids based on recent studies. Patient consents specifically to contained morcellation. The patient was allowed to freely ask questions, expressed a good understanding of all of the above risks, understood and declined alternatives to surgical management and wishes to proceed with the procedure. - would like surgery in September at end of september, understand urinary sx may necessitate surgery sooner. - increased of hysterectomy because of cervical fibroid. - use condoms for contraception. - Repeat HILARY for CT was negative after per patient report. - would like to hold off on suppressive or hormonal medications at this point as breast feeding. - MRI ordered We discussed the risks of surgery including, but not limited to: [x] Bleeding, infection, visceral or major vascular injury, transfusion, additional surgery related to the complication [x] Serious injury necessitating ostomy creation creation for bowel or urinary tract [x] Possibility of delayed surgical injury (such as in cases of bowel or bladder), prolonged catheterization. Discussed will likely need ureterolysis and risk of urinary injury [x] Anesthetic complication, cardiovascular risks including VTE, neurologic compromise/neuropathy [x] Unexpected findings which may require different or additional procedures [x] Failure of the procedure to achieve the desired result [x] For endoscopic procedures, the possibility of conversion to open surgery, need for re-operation or rehospitalization [x] The remote possibility of [x] Pain control and risks of narcotic medications [x] Recovery period and post-op expectations All questions asked and answered. Patient is able to correctly repeat the pertinent facts and indicates understanding of these issues and agrees with the plan. Plan: laparoscopic myomectomy, possible abdominal myomectomy, possible hysterectomy [facility] 05-09-2023 Evaluation + Plan note Associated Problem(s): Fibroid of cervix We discussed the r/b/a of major surgery via laparoscopic myomectomy and reviewed the steps of the procedure in depth. Patient also understands the risk of infertility due to possible tubal damage or intrauterine scarring if the cavity if the endometrium is entered. We also discussed the remote risk of hysterectomy for life saving measure with life threatening bleeding or post operative pyometra. We reviewed future consultation with her OB or MFM provider for current recommendations and chances or uterine rupture. We discussed expectations for menstrual patterns post operatively. Per ACOG Of those women who had a single leiomyoma, 27% had recurrent tumors and 11% required hysterectomy. Of those women who had multiple leiomyomas, 59% experienced recurrent tumors. Of the women in the multiple leiomyoma group, 26% required repeat myomectomy, hysterectomy, or both procedures. We discussed the remote risk of encountering a uterine sarcoma and current FDA numbers and the risk of upstaging that can occur by performing the surgery in a minimally invasive fashion. The patient understands that patient may need future surgery and/or radiation due to this. We also discussed the poor prognosis and 5 year survival if this were to occur. Also reviewed chance of future parasitic myoma. We discussed contained and uncontained morcellation are dependent on specimen size and reviewed contained tissue extraction with scalpel morcellation. Reviewed power morcellation and pertinent FDA information. The FDA currently estimates that a hidden uterine sarcoma may be present in approximately 1 in 225 to 1 in 580 women undergoing surgery for uterine fibroids based on recent publications. The FDA also estimates that a leiomyosarcoma (a specific type of uterine sarcoma) may be present in approximately 1 in 495 to 1 in 1100 women undergoing surgery for uterine fibroids based on recent studies. Patient consents specifically to contained morcellation. The patient was allowed to freely ask questions, expressed a good understanding of all of the above risks, understood and declined alternatives to surgical management and wishes to proceed with the procedure. - would like surgery in September at end of september, understand urinary sx may necessitate surgery sooner. - increased of hysterectomy because of cervical fibroid. - use condoms for contraception. - Repeat HILARY for CT was negative after per patient report. - would like to hold off on suppressive or hormonal medications at this point as breast feeding. - MRI ordered We discussed the risks of surgery including, but not limited to: [x] Bleeding, infection, visceral or major vascular injury, transfusion, additional surgery related to the complication [x] Serious injury necessitating ostomy creation creation for bowel or urinary tract [x] Possibility of delayed surgical injury (such as in cases of bowel or bladder), prolonged catheterization. Discussed will likely need ureterolysis and risk of urinary injury [x] Anesthetic complication, cardiovascular risks including VTE, neurologic compromise/neuropathy [x] Unexpected findings which may require different or additional procedures [x] Failure of the procedure to achieve the desired result [x] For endoscopic procedures, the possibility of conversion to open surgery, need for re-operation or rehospitalization [x] The remote possibility of [x] Pain control and risks of narcotic medications [x] Recovery period and post-op expectations All questions asked and answered. Patient is able to correctly repeat the pertinent facts and indicates understanding of these issues and agrees with the plan. Plan: laparoscopic myomectomy, possible abdominal myomectomy, possible hysterectomy [facility] 05-09-2023 Miscellaneous Notes Associated Problem(s): Fibroid of cervix We discussed the r/b/a of major surgery via laparoscopic myomectomy and reviewed the steps of the procedure in depth. Patient also understands the risk of infertility due to possible tubal damage or intrauterine scarring if the cavity if the endometrium is entered. We also discussed the remote risk of hysterectomy for life saving measure with life threatening bleeding or post operative pyometra. We reviewed future consultation with her OB or MFM provider for current recommendations and chances or uterine rupture. We discussed expectations for menstrual patterns post operatively. Per ACOG Of those women who had a single leiomyoma, 27% had recurrent tumors and 11% required hysterectomy. Of those women who had multiple leiomyomas, 59% experienced recurrent tumors. Of the women in the multiple leiomyoma group, 26% required repeat myomectomy, hysterectomy, or both procedures. We discussed the remote risk of encountering a uterine sarcoma and current FDA numbers and the risk of upstaging that can occur by performing the surgery in a minimally invasive fashion. The patient understands that patient may need future surgery and/or radiation due to this. We also discussed the poor prognosis and 5 year survival if this were to occur. Also reviewed chance of future parasitic myoma. We discussed contained and uncontained morcellation are dependent on specimen size and reviewed contained tissue extraction with scalpel morcellation. Reviewed power morcellation and pertinent FDA information. The FDA currently estimates that a hidden uterine sarcoma may be present in approximately 1 in 225 to 1 in 580 women undergoing surgery for uterine fibroids based on recent publications. The FDA also estimates that a leiomyosarcoma (a specific type of uterine sarcoma) may be present in approximately 1 in 495 to 1 in 1100 women undergoing surgery for uterine fibroids based on recent studies. Patient consents specifically to contained morcellation. The patient was allowed to freely ask questions, expressed a good understanding of all of the above risks, understood and declined alternatives to surgical management and wishes to proceed with the procedure. - would like surgery in September at end of september, understand urinary sx may necessitate surgery sooner. - increased of hysterectomy because of cervical fibroid. - use condoms for contraception. - Repeat HILARY for CT was negative after per patient report. - would like to hold off on suppressive or hormonal medications at this point as breast feeding. - MRI ordered We discussed the risks of surgery including, but not limited to: [x] Bleeding, infection, visceral or major vascular injury, transfusion, additional surgery related to the complication [x] Serious injury necessitating ostomy creation creation for bowel or urinary tract [x] Possibility of delayed surgical injury (such as in cases of bowel or bladder), prolonged catheterization. Discussed will likely need ureterolysis and risk of urinary injury [x] Anesthetic complication, cardiovascular risks including VTE, neurologic compromise/neuropathy [x] Unexpected findings which may require different or additional procedures [x] Failure of the procedure to achieve the desired result [x] For endoscopic procedures, the possibility of conversion to open surgery, need for re-operation or rehospitalization [x] The remote possibility of [x] Pain control and risks of narcotic medications [x] Recovery period and post-op expectations All questions asked and answered. Patient is able to correctly repeat the pertinent facts and indicates understanding of these issues and agrees with the plan. Plan: laparoscopic myomectomy, possible abdominal myomectomy, possible hysterectomy Associated Problem(s): Urinary retention - likely secondary to fibroid - will refer to urogyn for SIC teaching in case emergency or weekend scenario where she would need it. 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 I do think this would be a safe plan for her documented in this encounter [facility] 05-09-2023 Evaluation + Plan note Associated Problem(s): Urinary retention - likely secondary to fibroid - will refer to urogyn for SIC teaching in case emergency or weekend scenario where she would need it. 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 Shayy Varghese 05/09/2023 32 y.o. No chief complaint on file. No LMP recorded. Patient was identified and seen today via Telehealth by agreement and consent. I used the following Telehealth technology: Audio and video capabilities. Patient location: Patient Location: Home. This patient encounter is appropriate and reasonable under the circumstances: transportation issues . The patient has been advised of the potential risks and limitations of this mode of treatment (including but not limited to the absence of in-person examination) and has agreed to be treated in a remote fashion in spite of them. Any and all of the patient's/patient's family's questions on this issue have been answered and I have made no promises or guarantees to the patient. The patient has also been advised to contact this office for worsening conditions or problems, and seek emergency medical treatment and/or call 911 if the patient deems either necessary. The patient stated that they are currently in the state [facility]. If the patient is a minor, permission has been obtained by the parent or guardian for the patient to receive medical care at this visit. HPI: Shayy Varghese is a 32 y.o. female presents for follow up evaluation of fibroids. Got her repeat TVUS US. She reports radiologist told her it was hard to measure mass vs uterus and they would recommend MRI. She reports she is having trouble voiding at this point. Feels like she is having some retention and hard time starting stream. Had to sit for about twenty minutes. This has been minor for a few months but worsening in last two weeks. Was worried she would have to get straight catheter. She would like to wait until the new year for surgery because of PTO, sick time. OB History Para Term AB Living 3 2 2 1 SAB IAB Ectopic Multiple Live Births 1 # Outcome Date GA Lbr Errol/2nd Weight Sex Delivery Anes PTL Lv 3 11/2022 CS-LTranv 2 Term 12/17/19 F Vag-Spont None Y 1 Term 11/02/16 M Vag-Spont EPI JOSELYN Past Medical History: Diagnosis Date Fibroid of cervix Past Surgical History: Procedure Laterality Date LAPAROSCOPY ABDOMEN DIAGNOSTIC (HISTORICAL) TONSILLECTOMY No family history on file. Social History Tobacco Use Smoking status: Never Smokeless tobacco: Never Vaping Use Vaping Use: Former Substances: Nicotine Substance Use Topics Alcohol use: Yes Comment: socially Drug use: Never MEDICATIONS: Current Outpatient Medications Medication Sig Dispense Refill norethindrone (Micronor) 0.35 MG tablet Take 1 tablet (0.35 mg) by mouth daily. Take starting 3 weeks 84 tablet 3 Vit-Fe Fumarate-FA ( 1+1 PO) Take 1 tablet by mouth daily. No current facility-administered medications for this visit. ALLERGIES: Allergies as of 05/09/2023 - Reviewed 03/08/2023 Allergen Reaction Noted Penicillin g Rash 11/19/2022 Review of Systems: Review of Systems Genitourinary: Positive for difficulty urinating and pelvic pain. Physical Exam: There were no vitals taken for this visit. Physical Exam Constitutional: Appearance: Normal appearance. HENT: Head: Normocephalic and atraumatic. Neurological: Mental Status: She is alert and oriented to person, place, and time. Psychiatric: Behavior: Behavior normal. ASSESSMENT& PLAN: Urinary retention - likely secondary to fibroid - will refer to urogyn for SIC teaching in case emergency or weekend scenario where she would need it. 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 Patient also understands the risk of infertility due to possible tubal damage or intrauterine scarring if the cavity if the endometrium is entered. We also discussed the remote risk of hysterectomy for life saving measure with life threatening bleeding or post operative pyometra. We reviewed future consultation with her OB or MFM provider for current recommendations and chances or uterine rupture. We discussed expectations for menstrual patterns post operatively. Per ACOG Of those women who had a single leiomyoma, 27% had recurrent tumors and 11% required hysterectomy. Of those women who had multiple leiomyomas, 59% experienced recurrent tumors. Of the women in the multiple leiomyoma group, 26% required repeat myomectomy, hysterectomy, or both procedures. We discussed the remote risk of encountering a uterine sarcoma and current FDA numbers and the risk of upstaging that can occur by performing the surgery in a minimally invasive fashion. The patient understands that patient may need future surgery and/or radiation due to this. We also discussed the poor prognosis and 5 year survival if this were to occur. Also reviewed chance of future parasitic myoma. We discussed contained and uncontained morcellation are dependent on specimen size and reviewed contained tissue extraction with scalpel morcellation. Reviewed power morcellation and pertinent FDA information. The FDA currently estimates that a hidden uterine sarcoma may be present in approximately 1 in 225 to 1 in 580 women undergoing surgery for uterine fibroids based on recent publications. The FDA also estimates that a leiomyosarcoma (a specific type of uterine sarcoma) may be present in approximately 1 in 495 to 1 in 1100 women undergoing surgery for uterine fibroids based on recent studies. Patient consents specifically to contained morcellation. The patient was allowed to freely ask questions, expressed a good understanding of all of the above risks, understood and declined alternatives to surgical management and wishes to proceed with the procedure. - would like surgery in September at end of september, understand urinary sx may necessitate surgery sooner. - increased of hysterectomy because of cervical fibroid. - use condoms for contraception. - Repeat HILARY for CT was negative after per patient report. - would like to hold off on suppressive or hormonal medications at this point as breast feeding. - MRI ordered We discussed the risks of surgery including, but not limited to: [x] Bleeding, infection, visceral or major vascular injury, transfusion, additional surgery related to the complication [x] Serious injury necessitating ostomy creation creation for bowel or urinary tract [x] Possibility of delayed surgical injury (such as in cases of bowel or bladder), prolonged catheterization. Discussed will likely need ureterolysis and risk of urinary injury [x] Anesthetic complication, cardiovascular risks including VTE, neurologic compromise/neuropathy [x] Unexpected findings which may require different or additional procedures [x] Failure of the procedure to achieve the desired result [x] For endoscopic procedures, the possibility of conversion to open surgery, need for re-operation or rehospitalization [x] The remote possibility of [x] Pain control and risks of narcotic medications [x] Recovery period and post-op expectations All questions asked and answered. Patient is able to correctly repeat the pertinent facts and indicates understanding of these issues and agrees with the plan. Plan: laparoscopic myomectomy, possible abdominal myomectomy, possible hysterectomy Orders Placed This Encounter Procedures MR pelvis w and wo contrast Standing Status: Future Standing Expiration Date: 05/09/2024 Order Specific Question: Is the patient ? Answer: No Order Specific Question: What is the patient's sedation requirement? Answer: No Sedation Order Specific Question: Is this for MP Fusion use? Answer: No Order Specific Question: Is this exam specific to the prostate? Answer: No Order Specific Question: Is this exam for a diagnosis of Endometrial, Cervical, Vaginal or Rectal Cancer or Perianal Fistula or Perirurethral Diveritculum? Answer: No Ambulatory referral to Urogynecology Standing Status: Future Standing Expiration Date: 11/07/2023 Referral Priority: Routine Referral Type: Consultation Referral Reason: Specialty Services Required Referred to Provider: Gaby De Jesus DO Requested Specialty: Urogynecology Number of Visits Requested: 1 Adri Cota MD documented in this encounter [facility] 04-04-2023 Telephone encounter Note Reviewed records that are scanned in chart. NIL on 12/13/2021. + CT on STI screening, unsure per records of this has been treated. Called patient, left voicemail to call office. Awaiting ultrasound results as well. [facility] 04-04-2023 Miscellaneous Notes Reviewed records that are scanned in chart. NIL on 12/13/2021. + CT on STI screening, unsure per records of this has been treated. Called patient, left voicemail to call office. Awaiting ultrasound results as well. documented in this encounter [facility] 03-08-2023 Evaluation + Plan note Associated Problem(s): Abnormal Pap smear of cervix - Per patient report. -Send ROR today for Pap smear and HPV results, may need colposcopy. -If she does need colposcopy I talked to the patient about highly considering exam under anesthesia for this. [facility] 03-08-2023 Miscellaneous Notes Associated Problem(s): Abnormal Pap smear of cervix - Per patient report. -Send ROR today for Pap smear and HPV results, may need colposcopy. -If she does need colposcopy I talked to the patient about highly considering exam under anesthesia for this. Associated Problem(s): Fibroid of cervix - Reviewed options for myomectomy versus hysterectomy. Reviewed increased risk of myomectomy in terms of urinary injury, blood loss and increased chance of hysterectomy. I do think based on the size and exam that she would be a reasonable candidate for attempted laparoscopic myomectomy. Discussed that uterine artery embolization or radiofrequency ablation would not likely change route of surgery. Would not recommend either of these if she is planning on childbearing in the future. Currently breast-feeding, so I would not attempt a trial of Depo-Lupron for Myfembree. Discussed that these would be indicated in terms of symptom control or to decrease the fibroid size and change route of surgery. -We will get follow-up transvaginal ultrasound to determine size of fibroid to see if it is change after . She will get this at [facility] and send us her images -MRI was also performed at [facility], she will send us the images We will documented in this encounter [facility] 03-08-2023 Evaluation + Plan note Associated Problem(s): Fibroid of cervix - Reviewed options for myomectomy versus hysterectomy. Reviewed increased risk of myomectomy in terms of urinary injury, blood loss and increased chance of hysterectomy. I do think based on the size and exam that she would be a reasonable candidate for attempted laparoscopic myomectomy. Discussed that uterine artery embolization or radiofrequency ablation would not likely change route of surgery. Would not recommend either of these if she is planning on childbearing in the future. Currently breast-feeding, so I would not attempt a trial of Depo-Lupron for Myfembree. Discussed that these would be indicated in terms of symptom control or to decrease the fibroid size and change route of surgery. -We will get follow-up transvaginal ultrasound to determine size of fibroid to see if it is change after . She will get this at [facility] and send us her images -MRI was also performed at [facility], she will send us the images We will [facility] 03-08-2023 History of Present illness Narrative Images from the original note were not included. Shayy Varghese 03/08/2023 32 y.o. 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 HPI: Shayy Varghese is a 32 y.o. female presents for evaluation of fibroids. She went in for ealry US 03/2022 was found to have 10cm cervical fibroid that was thought to be maybe on her ovary. She was referred during early to see Dr. Maxwell in . Had diagnostic laparoscopy 05/2022 and was told it was a mass on her cervix not her ovary. Then she had an MRI a week after laparoscopy. She underwent CD with Dr. Manjarrez at [facility] in 11/2022. She is currently still breast feeding and amenorrheic. Recently intercourse can be a little uncomfortable based on position. Sometimes has had time starting stream of urine sometimes, can have sensation of not completley emptying. No problems with bowel movements. She is unsure if she is planning on childbearing in the future. She would like to attempt myomectomy and save her uterus if possible. She will think about this more. Has abnormal paps in the past. She notes she was supposed to have a colposcopy and never did. Most recent was in December 2021 was normal per patient report, unsure of HPV testing results. She previously saw Dr Mendez in [place] for primary ob.ob/gyn nurse who is moving their practice. 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 She would like to ultimately pursue surgery in the new year. Op Note from CD reviewed Noted to encompass the entire cervix and posterior lower uterine segment Bimanual exam at the end of the case was performed and the cervical fibroid was palpated in the upper 1/3 of the vagina, it was freely mobile, an external cervical os could not be palpated Per Dr. Mendez OB History Para Term AB Living 3 2 2 1 SAB IAB Ectopic Multiple Live Births 1 # Outcome Date GA Lbr Errol/2nd Weight Sex Delivery Anes PTL Lv 3 11/2022 CS-LTranv 2 Term 12/17/19 F Vag-Spont None Y 1 Term 11/02/16 M Vag-Spont EPI JOSELYN Past Medical History: Diagnosis Date Fibroid of cervix Past Surgical History: Procedure Laterality Date LAPAROSCOPY ABDOMEN DIAGNOSTIC (HISTORICAL) TONSILLECTOMY No family history on file. Social History Tobacco Use Smoking status: Never Smokeless tobacco: Never Vaping Use Vaping Use: Former Substances: Nicotine Substance Use Topics Alcohol use: Yes Comment: socially Drug use: Never MEDICATIONS: Current Outpatient Medications Medication Sig Dispense Refill Vit-Fe Fumarate-FA ( 1+1 PO) Take 1 tablet by mouth daily. ferrous sulfate 325 (65 Fe) MG tablet Take 1 tablet (325 mg) by mouth daily (with breakfast). 30 tablet 0 norethindrone (Micronor) 0.35 MG tablet Take 1 tablet (0.35 mg) by mouth daily. Take starting 3 weeks 84 tablet 3 No current facility-administered medications for this visit. ALLERGIES: Allergies as of 03/08/2023 - Reviewed 03/08/2023 Allergen Reaction Noted Penicillin g Rash 11/19/2022 Review of Systems: Review of Systems Physical Exam: BP 115/79 (BP Location: Left arm, Patient Position: Sitting, BP Cuff Size: Adult long) Pulse 84 Ht 5' 7 (1.702 m) Wt 225 lb (102 kg) Yes BMI 35.24 kg/m Physical Exam Constitutional: Appearance: Normal appearance. HENT: Head: Normocephalic and atraumatic. Abdominal: Comments: Pfannenstiel well-healed Genitourinary: Comments: Normal vulva, normal vaginal mucosa. On speculum exam posterior fibroid mass measuring about 5 cm pushing the posterior wall of the vagina anteriorly thus deviating the external os directly behind the pubic bone almost directly anteriorly. Vaginal vault is deviated very anteriorly directly behind the pubic bone and this is where cervix is palpated. Difficult to open the speculum or reduce the fibroid into the pelvis to visualize the cervix. I was only able to visualize the posterior lip of the cervix given its location directly behind the pubic bone. Palpation did cause some discomfort for patient. Exam was terminated. Neurological: Mental Status: She is alert. ASSESSMENT& PLAN: Fibroid of cervix - Reviewed options for myomectomy versus hysterectomy. Reviewed increased risk of myomectomy in terms of urinary injury, blood loss and increased chance of hysterectomy. I do think based on the size and exam that she would be a reasonable candidate for attempted laparoscopic myomectomy. Discussed that uterine artery embolization or radiofrequency ablation would not likely change route of surgery. Would not recommend either of these if she is planning on childbearing in the future. Currently breast-feeding, so I would not attempt a trial of Depo-Lupron for Denise. Discussed that these would be indicated in terms of symptom control or to decrease the fibroid size and change route of surgery. -We will get follow-up transvaginal ultrasound to determine size of fibroid to see if it is change after . She will get this at [facility] and send us her images -MRI was also performed at [facility], she will send us the images We will Abnormal Pap smear of cervix - Per patient report. -Send ROR today for Pap smear and HPV results, may need colposcopy. -If she does need colposcopy I talked to the patient about highly considering exam under anesthesia for this. Follow-up in 2 months virtual visit for surgery consent. We will review ultrasound results at that time. Can follow-up sooner if needs colposcopy based on records Orders Placed This Encounter Procedures US pelvis transvaginal Standing Status: Future Standing Expiration Date: 09/06/2023 Adri Cota MD Visit: New patient. I spent total time today of 45 minutes counseling, coordinating care and provided discussion regarding multiple complex diagnosis, treatment plan and follow up. documented in this encounter [facility] 12-19-2022 Note Lvm 2x/no mychart to return call to schedule referral. 1st attempt 12/04. [facility] 12-19-2022 Telephone encounter Note Lvm 2x/no mychart to return call to schedule referral. 1st attempt 12/04. [facility] 12-19-2022 Miscellaneous Notes Lvm 2x/no mychart to return call to schedule referral. 1st attempt 12/04. Return call to schedule referral w/Dr. Cota documented in this encounter [facility] 12-05-2022 Note Return call to sched ule referral w/Dr. Cota [facility] 12-05-2022 Telephone encounter Note Return call to schedule referral w/Dr. Cota [facility] 12-05-2022 Miscellaneous Notes Return call to schedule referral w/Dr. Cota documented in this encounter [facility] 11-21-2022 Note Department of Obstet rics and Gynecology Delivery Discharge Summary Admission on 11/19/2022 12:18 PM Hospital course: 32yo at 39w3d presented for a PCD for a large 14cm cervical fibroid. pLTCS performed. course & complications: - Uncomplicated Surgical Operations & Procedures: Date of delivery: 11/19/22 Procedure: : Low Transverse Anesthesia: Spinal anesthesia Laceration(s): n/a Delivery Complications: none EBL: 850 mL Pertinent Findings & Procedures: Information for the patient's : Lopez Varghese [[id number]] male 3505 g (7 lb 11.6 oz) Apgars: Information for the patient's : Lopez Varghese [[id number]] : Infant: Boy; circumcision done Blood Type/Rh: O Antibody Screen: No results found for: LABANTI Rubella: No results found for: RUBELLAIGG Contraception: micronor : VTE Prophylaxis: Prophylactic Dosing until Discharge Meds at Discharge: Medication List START taking these medications DSS 100 MG capsule Take 1 capsule (100 mg) by mouth 2 times daily as needed for constipation. ferrous sulfate 325 (65 Fe) MG tablet Take 1 tablet (325 mg) by mouth daily (with breakfast). ibuprofen 600 MG tablet Take 1 tablet (600 mg) by mouth every 6 hours as needed for mild pain (1-3) for up to 14 days. norethindrone 0.35 MG tablet Commonly known as: Micronor Take 1 tablet (0.35 mg) by mouth daily. Take starting 3 weeks CONTINUE taking these medications 1+1 PO Where to Get Your Medications These medications were sent to [facility] - [place], [place] - [address] [place] [address] DSS 100 MG capsule ferrous sulfate 325 (65 Fe) MG tablet ibuprofen 600 MG tablet norethindrone 0.35 MG tablet Activity: Activity as tolerated Diet: Regular diet Follow-up Appointments: - visit - Incision check If a patient meets criteria for hypertension, make sure the following are done prior to discharge: [] Order a blood pressure kit through [facility] (or the patient's own pharmacy on the weekend) [] Order the blood pressure log through [facility] [] Place an office visit or telephone encounter for a 3-to-5-day blood pressure check. [] Include blood pressure dot phrase (.sumobhypertension) in discharge instructions [x] Check here if the patient does NOT meet criteria for hypertension Condition on discharge: Stable Discharge to: Home Discharge date: 11/21/22 Discharge Dx: 1. S/p pLTCS at 39w3d 2. Cervical fibroid 3. Obesity 4. Acute blood loss anemia (dilutional anemia) 39 weeks gestation of [Z3A.39] Fibroid of cervix [D25.9] Patient Active Problem List Diagnosis Fibroid of cervix Comments: Home care, Follow-up care and control were reviewed. Signs and symptoms of mastitis and Depression were reviewed. The patient is to notify her physician if any of these occur. [facility] 11-20-2022 Note Patient ambulated wi th little assistance to the bathroom at this time. Pads and underwear changed. Education provided about dax care and abnormal signs of bleeding. No questions or concerns voiced. Patient ambulated independently back to bed. Call light within reach. [facility] 11-19-2022 Note Patient: Shayy mart Procedure Summary Date: 11/19/22 Room / Location: [address] Labor and Delivery Anesthesia Start: 1406 Anesthesia Stop: Procedure: DELIVERY (Abdomen) Diagnosis: 39 weeks gestation of (RC/S cervical fibroid) Surgeons: Dulce Manjarrez MD Responsible Provider: Alessandro Dent MD Anesthesia Type: regional, spinal ASA Status: 2 Anesthesia Type: regional, spinal Vitals Value Taken Time BP 150/87 11/19/22 1537 Temp 36.2 ?C (97.2 ?F) 11/19/22 1537 Pulse 105 11/19/22 1537 Resp 16 11/19/22 1537 SpO2 98 % 11/19/22 1537 Anesthesia Post Evaluation Patient location during evaluation: PACU Patient participation: complete - patient participated Level of consciousness: awake and alert Pain management: satisfactory to patient Airway patency: patent Dental Injury: no Cardiovascular status: acceptable, blood pressure returned to baseline and hemodynamically stable Respiratory status: acceptable and spontaneous ventilation Hydration status: euvolemic Nausea/Vomiting: controlled No notable events documented. Patient can be discharged once all PACU criteria has been met. [facility] 11-19-2022 Note Patient: Shayy mart Procedure Summary Date: 11/19/22 Room / Location: [address] Labor and Delivery Anesthesia Start: 1406 Anesthesia Stop: Procedure: DELIVERY (Abdomen) Diagnosis: 39 weeks gestation of (RC/S cervical fibroid) Surgeons: Dulce Manjarrez MD Responsible Provider: Alessandro Dent MD Anesthesia Type: regional, spinal ASA Status: 2 Anesthesia Type: regional, spinal Vitals Value Taken Time BP 150/87 11/19/22 1539 Temp 97.2 11/19/22 1539 Pulse 105 11/19/22 1539 Resp 16 11/19/22 1539 SpO2 98 11/19/22 1539 Anesthesia Post Evaluation Patient location during evaluation: PACU Patient participation: complete - patient participated Level of consciousness: awake and alert Pain score: 0 Pain management: satisfactory to patient Multimodal analgesia pain management approach Airway patency: patent Two or more strategies used to mitigate risk of obstructive sleep apnea Cardiovascular status: acceptable and hemodynamically stable Respiratory status: acceptable Hydration status: acceptable No notable events documented. MIPS #430 PONV Patient did not receive an inhalational anesthetic (XX430) MIPS # 424 Perioperative Temperature Management Anesthesia time was 60 minutes or longer (4255F) Anesthesai administered was General (inhalational or TIVA) or Neuraxial block (X0424) At least one body temperature greater than 95.8F/35.5C achieved within the 30 mins immediately prior to or the 15 minutes immediately following anesthesia end time (G9771) MIPS #477 Multimodal Pain Management Not emergent case Patient was administered multimodal pain management (two or more drugs and/or interventions excluding systemic opioids) in the periopeartive period occurring at some time between 6 hours prior to anesthesia start time until discharged from PACU (G2148) MIPS #404 Anesthesiology Smoking Abstinence The patient is not a current smoker (e.g. cigarette, cigar, pipe, e-cigarette/vaping/marijuana) If no stop here (XX404) I completed my handoff to the receiving clinician during which we: 1. Identified the patient 2. Identified the responsible provider 3. Reviewed the pertinent medical history 4. Discussed the surgical course 5. Reviewed intra-op anesthesia management and issues during anesthesia 6. Set expectations for post-procedure period 7. Allowed opportunity for questions and acknowledgement of understanding. [facility] 11-19-2022 Note Peripheral Block Time Out: 11/19/2022 3:22 PM Patient location during procedure: Procedural Start time: 11/19/2022 3:21 PM End time: 11/19/2022 3:29 PM Reason for block: at surgeon's request and post-op pain management Staffing Performed: APPEALS ANALYST Resident/APPEALS ANALYST: Leny Israel APRN - APPEALS ANALYST Lucas Fuentes RN Preanesthetic Checklist Completed: patient identified, IV checked, site marked, risks and benefits discussed, surgical consent, monitors and equipment checked, pre-op evaluation and timeout performed Region: Trun[place] Primary: TAP (60ml of Bupivacaine 0.375% with dexamethasone 0.01% with epinephrine 1:200,000 divided evenly bilaterally) Peripheral Block Patient position: supine Prep: ChloraPrep Patient monitoring: heart rate, cardiac cath tech and continuous pulse ox O2: Room air Laterality: bilateral Injection technique: single-shot Guidance: ultrasound guided -image retained in chart, tip of the needle identified by ultraound during injection. Needle Needle: 21G X 110 mm Additional Notes 11/19/2022 3:21 PM Assessment Injection assessment: negative aspiration for heme, no paresthesia on injection, incremental injection and local visualized surrounding nerve on ultrasound Paresthesia pain: none Heart rate change: no Slow fractionated injection: yes Required Documentation: Relevant anatomy identified (Nerves, Vessels, Muscles), Negative for blood on aspiration, Local anesthetic injected incrementally with intermittent aspiration every 5 mL, No EKG changes noted, No symptoms of toxicity, Local anesthetic spread visualized around nerves or plane., Normal resistance with injection, No paresthesias reported by patient during injection and Local anesthetic injected without difficultyMedications twxDEYESwgbuo-pcahqjdmtnq-geqkelfuo ne (TAP) syringe - Injection 30 mL - 11/19/2022 3:24:00 PM 30 mL - 11/19/2022 3:27:00 PM [facility] 11-19-2022 Note Spinal Block Time Out: 11/19/2022 2:08 PM Patient location during procedure: OR Start time: 11/19/2022 2:12 PM End time: 11/19/2022 2:14 PM Reason for block: primary anesthetic Staffing Performed: APPEALS ANALYST and SRNA Resident/APPEALS ANALYST: Kay Self APRN - GRACIA Other anesthesia staff: Tatyana Chung RN Preanesthetic Checklist Completed: patient identified, IV checked, site marked, risks and benefits discussed, surgical consent, monitors and equipment checked, pre-op evaluation and timeout performed Spinal Block Patient position: sitting Prep: ChloraPrep Sterility prep: gloves, hand hygiene and mask Sedation level: light sedation Patient monitoring: continuous pulse oximetry and heart rate Approach: midline Location: L3-4 Injection technique: single-shot Needle Needle type: pencil-tip Needle gauge: 24 G Needle length: 10 cm Assessment Sensory level: T4 Block outcome: block to be assessed in the OR Number of attempts: 1 Additional Notes Free flow CSF. No Heme. No Parathesia [facility] 11-19-2022 Note Patient: Shayy mart Procedure Information Date/Time: 11/19/22 1430 Procedure: DELIVERY (Abdomen) Location: [facility] Labor and Delivery Surgeons: Dulce Manjarrez MD Relevant Problems No relevant active problems Clinical information reviewed: Tobacco Allergies Med Hx Surg Hx Fam Hx Soc Hx Physical Exam Airway Mallampati: II Mouth Open: normal Cardiovascular Dental dentition normal Pulmonary Abdominal Anesthesia Plan ASA 2 regional and spinal The patient is not a current smoker. Anesthetic plan and risks discussed with patient and spouse. Use of blood products discussed with who consented to blood products. patient is NPO Additional Equipment Requests [facility] 11-19-2022 Note Attestation signed by Dulce Manjarrez MD at 11/19/2022 2:07 PM Hospital Care (Independent): I independently saw and evaluated the patient. I agree with the findings and plan of care as documented in the resident's note. This is a at 39w3d here for a PCD for a large 14cm cervical fibroid. Patient was counseled on section and that the risks include but are not limited to infection, damage to visceral and vascular structures, bleeding and need for blood transfusion, and prolonged hospitalization. Patient voiced her understanding of these risks and is accepting of a blood transfusion if medically necessary. All questions were answered and consents were signed. Await starting Hbg. 2 units of blood on hold. TXA to be given pre-op. Obstetrical History and Physical CHIEF COMPLAINT: Scheduled section HISTORY OF PRESENT ILLNESS: The patient is a 32 y.o. female at 39w admitted to L&D for a scheduled primary section for a cervical fibroid Denies DFM/VB/LOF/MALIK/EpigastricPain/Visual changes Estimated Due Date: Estimated Date of Delivery: 11/23/2022 PC-01 HARDSTOP. Current EGA is 39w3d Is this patient being delivered between 74m8j-92u0k weeks with an acceptable medical indication (obstetric, maternal, and/or )? NA: Not Applicable: This patient is being delivered outside of the PC-01 range ([id number]-62y2s) for reasons indicated in the medical record. CARE: see below PAST OB HISTORY: OB History Para Term AB Living 3 2 2 1 SAB IAB Ectopic Multiple Live Births 1 # Outcome Date GA Lbr Errol/2nd Weight Sex Delivery Anes PTL Lv 3 Current 2 Term 12/17/19 F Vag-Spont None Y 1 Term 11/02/16 M Vag-Spont EPI JOSELYN Past Medical History: Past Medical History: Diagnosis Date Fibroid of cervix Past Surgical History: Past Surgical History: Procedure Laterality Date LAPAROSCOPY ABDOMEN DIAGNOSTIC (HISTORICAL) TONSILLECTOMY Allergies: Allergies Allergen Reactions Penicillin G Rash Social History: Social History Socioeconomic History Marital status: Single Spouse name: Not on file Number of children: 2 Years of education: Not on file Highest education level: Not on file Occupational History Not on file Tobacco Use Smoking status: Never Smokeless tobacco: Never Vaping Use Vaping Use: Former Substances: Nicotine Substance and Sexual Activity Alcohol use: Yes Comment: socially Drug use: Never Sexual activity: Yes Partners: Male control/protection: None Other Topics Concern Not on file Social History Narrative Not on file Social Determinants of Health Financial Resource Strain: Not on file Food Insecurity: Not on file Transportation Needs: Not on file Physical Activity: Not on file Stress: Not on file Social Connections: Not on file Intimate Partner Violence: Not on file Housing Stability: Not on file Family History: No family history on file. Medications Prior to Admission: Current Outpatient Medications Medication Instructions Vit-Fe Fumarate-FA ( 1+1 PO) 1 tablet, Oral, Daily REVIEW OF SYSTEMS: Const: Negative HEENT: Negative Resp: Negative CVS: Negative GI: Negative : Negative MSK: Negative Breast: Negative Skin: Negative Heme/Lymph: Negative Endo: Negative Neuro: Negative Psych: Negative PHYSICAL EXAM: General appearance: awake, alert, cooperative, no apparent distress, and appears stated age Neurologic: Awake, alert, oriented to name, place and time. Lungs: No increased work of breathing, good air exchange Abdomen: Soft, non tender, gravid, consistent with her gestational age Sterile Speculum Exam: Membranes: defer HSV Lesions: Will assess at time of catheter placement Cervix: Defer Contraction frequency: none Labs: CBC and Type and screen Blood Type/Rh: pending admission labs Group B Strep: unknown Fetus: [facility] Presentation: transverse, head maternal right, spine posterior by U/S LABOR DELIVERY ??? SCD's ONLY (labor through ambulation) SCD's PLUS Prophylactic Anticoagulation until discharge SCD's PLUS Prophylactic Anticoagulation for 6 weeks SCD's PLUS Therapeutic Anticoagulation for 6 weeks Vaginal Delivery [] BMI ? 40 kg/m2 Delivery All patients Vaginal Delivery [] BMI ? 40 kg/m2 AND [] Antepartum hospitalization ? 72 hours within the past month Delivery 1 Major Risk Factor: [x] BMI ? 35 kg/m2 [] Low Risk Thrombophilia [] PPH+RBCs, IR, or operation [] Infection+Antibiotics [] Antepartum hospitalization ? 72 hours within the past month [] PMH: Sickle Cell, SLE, Cardiac Dz, Active IBD, Active Cancer, (more content not included)... [facility] 05-28-2022 Evaluation + Plan note Future Scheduled TestsMRI Pelvis Uterine/Ovarian 05/28/22 [facility] 05-23-2022 Hospital Discharge instructions Patient Education 05/23/2022 14:47:42 1-[facility] Discharge Instructions Template (04/2018) [facility] SAME DAY SURGERY DISCHARGE INSTRUCTIONS PLEASE FOLLOW THE INSTRUCTIONS BELOW MARKED WITH AN X: _x_ Regular Diet: Start with clear liquids, then soup and crackers and gradually add other foods. _x_ Drink extra fluids. ___ Special Diet Instructions: ___ ACTIVITY: _x_ Avoid stress to suture line. Since you have had an anesthetic, it would be advisable not to drive, drink alcohol, or make major decisions over the next 24 hours. You may require more rest tonight and tomorrow. ___ May resume regular activity as tolerated. ___ Restrict activity as follows: ___ ___ Walk Only ___ ___ Do not go up and down stairs. ___ Do not ride in car until ___ ___ Do not drive car. ___ Do not have sexual intercourse. _x_ No heavy lifting, pushing or straining. _x_ Other: _Follow all of Dr. Raza's instructions__ BATHING/SHOWERING: ___ Sponge bathe until office visit. ___ Sitting in tub of warm water may relieve discomfort. ___ May tub bathe _x_ May shower in 24 hours ___ On day after surgery sit in tub of warm water to soak off dressing. DRESSING: _x_ Keep operative area dry and clean for _24 hours__ _x_ Check the operative area for signs of bleeding. Apply pressure to the bleeding site if necessary and call your physician. ___ Change dressing as necessary using sterile dressing material or bandaid. ___ Reinforce dressing as necessary. ___ Change and care for wound as follows: ___ ___ Wear bra for ___ days following breast surgery for comfort. ___ Change drip pad as needed. ___ Wear scrotal support for comfort. WATCH FOR SIGNS OF INFECTION: (Usually appears 36-48 hours after surgery) Increased temperature (101 degrees Fahrenheit or higher) Redness or swelling Increased pain Foul odor or drainage. If you have any questions, please call your doctor at the number listed on your follow up instructions. Follow all instructions given to you by your physician. Please complete and return the survey you will be receiving in the mail to help us better serve our patients. Form: [id number]) R: 10/1405/23/2022 14:45:40 Diagnostic Laparoscopy, Care After Diagnostic Laparoscopy, Care After This sheet gives you information about how to care for yourself after your procedure. Your health care provider may also give you more specific instructions. If you have problems or questions, contact your health care provider. What can I expect after the procedure? After the procedure, it is common to have: Mild discomfort in the abdomen. Sore throat. Women who have laparoscopy with pelvic examination may have mild cramping and fluid coming from the vagina for a few days after the procedure. Follow these instructions at home: Medicines Take pmwm-ndk-lwmidtu and prescription medicines only as told by your health care provider. If you were prescribed an antibiotic medicine, take it as told by your health care provider. Do not stop taking the antibiotic even if you start to feel better. Driving Do not drive for 24 hours if you were given a medicine to help you relax (sedative) during your procedure. Do not drive or use heavy machinery while taking prescription pain medicine. Bathing Do not take baths, swim, or use a hot tub until your health care provider approves. You may take showers. Incision care Follow instructions from your health care provider about how to take care of your incisions. Make sure you: ?Wash your hands with soap and water before you change your bandage (dressing). If soap and water are not available, use hand registrar assistant. ?Change your dressing as told by your health care provider. ?Leave stitches (sutures), skin glue, or adhesive strips in place. These skin closures may need to stay in place for 2 weeks or longer. If adhesive strip edges start to loosen and curl up, you may trim the loose edges. Do not remove adhesive strips completely unless your health care provider tells you to do that. Check your incision areas every day for signs of infection. Check for: ?Redness, swelling, or pain. ?Fluid or blood. ?Warmth. ?Pus or a bad smell. Activity Return to your normal activities as told by your health care provider. Ask your health care provider what activities are safe for you. Do not lift anything that is heavier than 10 lb (4.5 kg), or the limit that you are told, until your health care provider says that it is safe. General instructions To prevent or treat constipation while you are taking prescription pain medicine, your health care provider may recommend that you: ?Drink enough fluid to keep your urine pale yellow. ?Take nvzt-nqs-uvvcqvx or prescription medicines. ?Eat foods that are high in fiber, such as fresh fruits and vegetables, whole grains, and beans. ?Limit foods that are high in fat and processed sugars, such as fried and sweet foods. Do not use any products that contain nicotine or tobacco, such as cigarettes and e-cigarettes. If you need help quitting, ask your health care provider. Keep all follow-up visits as told by your health care provider. This is important. Contact a health care provider if: You develop shoulder pain. You feel lightheaded or faint. You are unable to pass gas or have a bowel movement. You feel nauseous or you vomit. You develop a rash. You have redness, swelling, or pain around any incision. You have fluid or blood coming from any incision. Any incision feels warm to the touch. You have pus or a bad smell coming from any incision. You have a fever or chills. Get help right away if: You have severe pain. You have vomiting that does not go away. You have heavy bleeding from the vagina. Any incision opens. You have trouble breathing. You have chest pain. Summary After the procedure, it is common to have mild discomfort in the abdomen and a sore throat. Check your incision areas every day for signs of infection. Return to your normal activities as told by your health care provider. Ask your health care provider what activities are safe for you. This information is not intended to replace advice given to you by your health care provider. Make sure you discuss any questions you have with your health care provider. Document Released: 06/04/2016 Document Revised: 06/06/2018 Document Reviewed: 12/18/2017 saambaa Patient Education 2020 [employer] Follow Up Care 04/18/2022 14:40:00 With:ALFONSO RAZA MD Address: [address] [place] [address] [place] [address]- [phone] When: Unknown Comments:Follow-up with Dr. Raza as scheduled, if you do not have an appointment please call to schedule one. [facility] 05-23-2022 Summary of episode note Discharge Instructions Thank you for allowing [facility] to assist you with your healthcare needs. The following is important discharge information regarding your hospital visit. Your Care Team KAUSHIK ROJO MD Your Diagnosis Post-op pain What to do next Scheduled Follow-Up Appointments Appointment Type When With Where Contact InformationSO OV Post Op 06/05/2022 10:00 AM EST ALFONSO RAZA MD [facility] [address] [place] [phone] Follow Up Appointments Follow Up with ALFONSO RAZA MD When Why: Follow-up with Dr. Raza as scheduled, if you do not have an appointment please call to schedule one. Where: [address] [place] [address] [place] [phone] The Following Activity and Diet Have Been Ordered for You Discharge Activity - Ordered -- Other, 05/23/22 12:46:00 EST Discharge Diet - Ordered -- No changes were made to your diet during your hospital stay. Please resume your pre hospitalization diet on discharge., 05/23/22 12:46:00 EST The Following Equipment Has Been Ordered for You No qualifying data available. The Following Treatments Have Been Ordered for You Discharge Labs No qualifying data available. Discharge Radiology No qualifying data available. Other Therapies No qualifying data available. Post Acute Orders No qualifying data available. Someone Will Contact You Regarding These Home Health Referrals No home referrals have been ordered for you. No one will call you. Allergies penicillin (Itching, Rash, Hives) Medications Please ask your primary doctor or pharmacist before taking any other medication not listed, including over the counter drugs, herbal medications, vitamins and or supplements as they may interact with your home medications. What How Much When Why Instructions Last Dose New acetaminophen (Tylenol 8 Hour 650 mg oral tablet, extended release) 2 tab(s) by mouth Every 8 hours Pickup at [facility] New docusate (Colace 100 mg oral capsule) 1 cap by mouth Two (2) times a day Duration: 10 Days Refills: 1 Pickup at [facility] New oxyCODONE (oxyCODONE 5 mg oral tablet ( IMMEDIATE release )) 1 tab(s) by mouth Every 6 hours Post-op pain Duration: 2 Days Pickup at [facility] Unchanged multivitamin, ( AD oral tablet) 1 tab(s) by mouth Once a day (in the morning) Pharmacy Information [facility]: [address] [place] [address] [phone] Please take this list to your next doctor s visit. Bring all medications you take, including over the counter medications, herbals and other supplements with you to your doctor s visit. Patients and families are reminded to discard old lists and to update any records with all medication providers or retail pharmacies. Education Materials [facility] SAME DAY SURGERY DISCHARGE INSTRUCTIONS PLEASE FOLLOW THE INSTRUCTIONS BELOW MARKED WITH AN X: _x_ Regular Diet: Start with clear liquids, then soup and crackers and gradually add other foods. _x_ Drink extra fluids. ___ Special Diet Instructions: ___ ACTIVITY: _x_ Avoid stress to suture line. Since you have had an anesthetic, it would be advisable not to drive, drink alcohol, or make major decisions over the next 24 hours. You may require more rest tonight and tomorrow. ___ May resume regular activity as tolerated. ___ Restrict activity as follows: ___ ___ Walk Only ___ ___ Do not go up and down stairs. ___ Do not ride in car until ___ ___ Do not drive car. ___ Do not have sexual intercourse. _x_ No heavy lifting, pushing or straining. _x_ Other: _Follow all of Dr. Raza's instructions__ BATHING/SHOWERING: ___ Sponge bathe until office visit. ___ Sitting in tub of warm water may relieve discomfort. ___ May tub bathe _x_ May shower in 24 hours ___ On day after surgery sit in tub of warm water to soak off dressing. DRESSING: _x_ Keep operative area dry and clean for _24 hours__ _x_ Check the operative area for signs of bleeding. Apply pressure to the bleeding site if necessary and call your physician. ___ Change dressing as necessary using sterile dressing material or bandaid. ___ Reinforce dressing as necessary. ___ Change and care for wound as follows: ___ ___ Wear bra for ___ days following breast surgery for comfort. ___ Change drip pad as needed. ___ Wear scrotal support for comfort. WATCH FOR SIGNS OF INFECTION: (Usually appears 36-48 hours after surgery) Increased temperature (101 degrees Fahrenheit or higher) Redness or swelling Increased pain Foul odor or drainage. If you have any questions, please call your doctor at the number listed on your follow up instructions. Follow all instructions given to you by your physician. Please complete and return the survey you will be receiving in the mail to help us better serve our patients. Form: 1522 ([id number]) R: 10/14 Diagnostic Laparoscopy, Care After This sheet gives you information about how to care for yourself after your procedure. Your health care provider may also give you more specific instructions. If you have problems or questions, contact your health care provider. What can I expect after the procedure? After the procedure, it is common to have: Mild discomfort in the abdomen. Sore throat. Women who have laparoscopy with pelvic examination may have mild cramping and fluid coming from the vagina for a few days after the procedure. Follow these instructions at home: Medicines Take ldqv-iag-cyuwhwt and prescription medicines only as told by your health care provider. If you were prescribed an antibiotic medicine, take it as told by your health care provider. Do not stop taking the antibiotic even if you start to feel better. Driving Do not drive for 24 hours if you were given a medicine to help you relax (sedative) during your procedure. Do not drive or use heavy machinery while taking prescription pain medicine. Bathing Do not take baths, swim, or use a hot tub until your health care provider approves. You may take showers. Incision care Follow instructions from your health care provider about how to take care of your incisions. Make sure you: ? Wash your hands with soap and water before you change your bandage (dressing). If soap and water are not available, use hand registrar assistant. ? Change your dressing as told by your health care provider. ? Leave stitches (sutures), skin glue, or adhesive strips in place. These skin closures may need to stay in place for 2 weeks or longer. If adhesive strip edges start to loosen and curl up, you may trim the loose edges. Do not remove adhesive strips completely unless your health care provider tells you to do that. Check your incision areas every day for signs of infection. Check for: ? Redness, swelling, or pain. ? Fluid or blood. ? Warmth. ? Pus or a bad smell. Activity Return to your normal activities as told by your health care provider. Ask your health care provider what activities are safe for you. Do not lift anything that is heavier than 10 lb (4.5 kg), or the limit that you are told, until your health care provider says that it is safe. General instructions To prevent or treat constipation while you are taking prescription pain medicine, your health care provider may recommend that you: ? Drink enough fluid to keep your urine pale yellow. ? Take ancb-ykc-pynkjav or prescription medicines. ? Eat foods that are high in fiber, such as fresh fruits and vegetables, whole grains, and beans. ? Limit foods that are high in fat and processed sugars, such as fried and sweet foods. Do not use any products that contain nicotine or tobacco, such as cigarettes and e-cigarettes. If you need help quitting, ask your health care provider. Keep all follow-up visits as told by your health care provider. This is important. Contact a health care provider if: You develop shoulder pain. You feel lightheaded or faint. You are unable to pass gas or have a bowel movement. You feel nauseous or you vomit. You develop a rash. You have redness, swelling, or pain around any incision. You have fluid or blood coming from any incision. Any incision feels warm to the touch. You have pus or a bad smell coming from any incision. You have a fever or chills. Get help right away if: You have severe pain. You have vomiting that does not go away. You have heavy bleeding from the vagina. Any incision opens. You have trouble breathing. You have chest pain. Summary After the procedure, it is common to have mild discomfort in the abdomen and a sore throat. Check your incision areas every day for signs of infection. Return to your normal activities as told by your health care provider. Ask your health care provider what activities are safe for you. This information is not intended to replace advice given to you by your health care provider. Make sure you discuss any questions you have with your health care provider. Document Released: 06/04/2016 Document Revised: 06/06/2018 Document Reviewed: 12/18/2017 saambaa Patient Education 2020 [employer] Additional Information VACCINATE! IT SAVES LIVES! Members of the community who have not yet received the COVID-19 vaccine and would like to receive it can visit one of [facility] vaccine clinics. There are many vaccine clinic locations within the [facility]. For locations and available times, please visit [email or web address] It is important to note that some COVID mobile vaccine clinics are held outdoors and may be canceled in rainy or stormy conditions. To learn more about pediatric vaccinations (ages 5-11), we invite you to visit the [facility] webpage. [email or web address]-[email or web address] -[email or web address] To learn more about the COVID-19 vaccine, we invite you to visit the [facility] website for a list of frequently asked questions. [email or web address] tly_[email or web address] [facility] Patient Portal Access Instructions: Stay connected with your healthcare team and access your personal medical information anytime with the [email or web address] Patient Portal.If you would like a full copy of your medical records, please contact the [facility] Medical Records Department, Saturday through Saturday between 8a.m. and 4:30p.m. Please follow the directions below to access the portal: 1.Access the email account you provided upon registration to the [facility].2.Look for an invitation email from [facility].3.Open the email and access the invitation link: Accept Invitation to [email or web address].Fill in the required talavera to create your account. Sign into [email or web address] with your username and password that you created in the above steps to stay up to date. You can then view a summary of results, a summary of your visits, and the ability to download your summaries to your computer or send the information securely to a physician. Remember that your healthcare information is confidential, so carefully consider who you will allow to register on the [facility] Patient Portal for access to your information. You can also access the [email or web address] Patient Portal on the [employer] ian. Simply click on Health Records under Health Data and then click on the [facility] logo. HOW TO SAFELY DISPOSE OF PRESCRIPTION MEDICATIONS Please use one of the following methods to safely dispose of your unused medications. 1.Use a drug disposal kit: the drug disposal pouch allows you to safely discard your old and unused drugs. Ask your nurse to give you one when you are discharged.2.Visit a local take-back location: Many local pharmacies and police departments have programs that collect old and unwanted prescription drugs. Call your local pharmacy or go to http://[employer].SiteJabber/8T9Hp8e to find one close to you.3.Make use of household items: Use cat litter or old coffee grounds to dispose medications if other options are not available. Mix your drugs with these household products, seal them in an airtight container and throw it into the garbage. Call [facility]: [phone] to be sure your drugs can be disposed of in this way. Some medicines may require a different approach.4.Never flush your medications down the toilet. IF YOU HAVE BEEN PRESCRIBED AN OPIOID FOR PAIN If you have been prescribed an opioid (such as hydrocodone, oxycodone or morphine), it is critical to understand the possible side effects and risks of opioid pain medications. Even when taken as directed, opioids can have several side effects including: Tolerance, meaning you might need to take more of a medication for the same pain relief. Nausea, vomiting and/or constipation. Sleepiness, dizziness, dry mouth, confusion, depression or itching. Physical dependence, meaning you have withdrawal symptoms when a medication is stopped, can develop within a few days. KNOW YOUR RESPONSIBILITIES It is important to know exactly how much and how often to take the opioid pain medications you are prescribed. Never take opioids in higher amounts or more often than prescribed. Do not combine opioids with alcohol or other drugs that cause drowsiness, such as benzodiazepines, also known as benzos, including diazepam and alprazolam, muscle relaxants or sleep aids. Never sell or share prescription opioids. This is illegal. Store opioids in a secure place and out of reach of others (including children, family, friends and visitors). The last page of this document has been signed and retained as a CHART COPY. Signatures Patient Education Materials 1-SDS Discharge Instructions Template (04/2018) Diagnostic Laparoscopy, Care After Medication Leaflets My discharge plan and instructions have been reviewed and explained to me and IZAIN HANNAH understand my current condition and have read and understand these discharge instructions. I have received a written copy of the plan/instructions. If I have questions, I am aware that I should contact my doctor. Patient/Sql Engineer Signature: ____ Date/Time: Relationship to Patient: __ Witness Name/Signature: Date/Time: [facility] 05-23-2022 Anesthesiology Consult note Patient: SHAYY VARGHESE Age: 31 years Sex: Female : 1990 Associated Diagnoses: None Author: BRIAN ESTEBAN MD Postoperative Information Post Operative Info: Post op day: Post Anesthesia Care Unit. Patient location: PACU. Assessment Postanesthesia assessment Vitals: Vital signs from flowsheet : Vital Signs 05/23/2022 13:16 EST Heart Rate Monitored 93 bpm Respiratory Rate 16 br/min Systolic Blood Pressure Non-Invasive 103 mmHg Diastolic Blood Pressure Non-Invasive 48 mmHg Mean Arterial Pressure (NBP) 60 mmHg 05/23/2022 13:00 EST Heart Rate Monitored 90 bpm Respiratory Rate 16 br/min Systolic Blood Pressure Non-Invasive 103 mmHg Diastolic Blood Pressure Non-Invasive 39 mmHg Mean Arterial Pressure (NBP) 54 mmHg 05/23/2022 12:45 EST Respiratory Rate - Anes 0 br/min br/min 05/23/2022 12:43 EST Temperature Temporal Artery 36.1 DegC Heart Rate Monitored 99 bpm Respiratory Rate 16 br/min Systolic Blood Pressure Non-Invasive 103 mmHg Diastolic Blood Pressure Non-Invasive 42 mmHg Mean Arterial Pressure (NBP) 57 mmHg 05/23/2022 12:40 EST Respiratory Rate - Anes 0 br/min br/min 05/23/2022 12:37 EST Systolic Blood Pressure Non-Invasive 106 mmHg mmHg Diastolic Blood Pressure Non-Invasive 42 mmHg mmHg 05/23/2022 12:35 EST Heart Rate Monitored 101 bpm bpm Respiratory Rate - Anes 17 br/min br/min 05/23/2022 12:32 EST Systolic Blood Pressure Non-Invasive 122 mmHg mmHg Diastolic Blood Pressure Non-Invasive 77 mmHg mmHg 05/23/2022 12:30 EST Heart Rate Monitored 122 bpm bpm Respiratory Rate - Anes 21 br/min br/min 05/23/2022 12:29 EST Systolic Blood Pressure Non-Invasive 115 mmHg mmHg Diastolic Blood Pressure Non-Invasive 87 mmHg mmHg 05/23/2022 12:26 EST Systolic Blood Pressure Non-Invasive 88 mmHg mmHg Diastolic Blood Pressure Non-Invasive 59 mmHg mmHg 05/23/2022 12:25 EST Heart Rate Monitored 82 bpm bpm Respiratory Rate - Anes 6 br/min br/min 05/23/2022 12:24 EST Systolic Blood Pressure Non-Invasive 78 mmHg mmHg Diastolic Blood Pressure Non-Invasive 32 mmHg mmHg 05/23/2022 12:22 EST Systolic Blood Pressure Non-Invasive 74 mmHg mmHg Diastolic Blood Pressure Non-Invasive 52 mmHg mmHg 05/23/2022 12:21 EST Systolic Blood Pressure Non-Invasive 55 mmHg mmHg Diastolic Blood Pressure Non-Invasive 34 mmHg mmHg 05/23/2022 12:20 EST Heart Rate Monitored 85 bpm bpm Respiratory Rate - Anes 12 br/min br/min 05/23/2022 12:17 EST Systolic Blood Pressure Non-Invasive 97 mmHg mmHg Diastolic Blood Pressure Non-Invasive 56 mmHg mmHg 05/23/2022 12:15 EST Heart Rate Monitored 76 bpm bpm Respiratory Rate - Anes 14 br/min br/min Systolic Blood Pressure Non-Invasive 97 mmHg mmHg Diastolic Blood Pressure Non-Invasive 56 mmHg mmHg 05/23/2022 12:14 EST Systolic Blood Pressure Non-Invasive 88 mmHg mmHg Diastolic Blood Pressure Non-Invasive 55 mmHg mmHg 05/23/2022 12:11 EST Systolic Blood Pressure Non-Invasive 75 mmHg mmHg Diastolic Blood Pressure Non-Invasive 42 mmHg mmHg 05/23/2022 12:10 EST Heart Rate Monitored 85 bpm bpm Respiratory Rate - Anes 14 br/min br/min 05/23/2022 12:08 EST Systolic Blood Pressure Non-Invasive 77 mmHg mmHg Diastolic Blood Pressure Non-Invasive 40 mmHg mmHg 05/23/2022 12:05 EST Heart Rate Monitored 90 bpm bpm Respiratory Rate - Anes 14 br/min br/min Systolic Blood Pressure Non-Invasive 90 mmHg mmHg Diastolic Blood Pressure Non-Invasive 43 mmHg mmHg 05/23/2022 12:03 EST Systolic Blood Pressure Non-Invasive 67 mmHg mmHg Diastolic Blood Pressure Non-Invasive 19 mmHg mmHg 05/23/2022 12:00 EST Heart Rate Monitored 80 bpm bpm Respiratory Rate - Anes 14 br/min br/min 05/23/2022 11:59 EST Systolic Blood Pressure Non-Invasive 82 mmHg mmHg Diastolic Blood Pressure Non-Invasive 40 mmHg mmHg 05/23/2022 11:57 EST Systolic Blood Pressure Non-Invasive 87 mmHg mmHg Diastolic Blood Pressure Non-Invasive 25 mmHg mmHg 05/23/2022 11:56 EST Systolic Blood Pressure Non-Invasive 84 mmHg mmHg Diastolic Blood Pressure Non-Invasive 35 mmHg mmHg 05/23/2022 11:55 EST Heart Rate Monitored 96 bpm bpm Respiratory Rate - Anes 14 br/min br/min 05/23/2022 11:50 EST Heart Rate Monitored 115 bpm bpm Respiratory Rate - Anes 0 br/min br/min Systolic Blood Pressure Non-Invasive 125 mmHg mmHg Diastolic Blood Pressure Non-Invasive 84 mmHg mmHg 05/23/2022 11:47 EST Systolic Blood Pressure Non-Invasive 105 mmHg mmHg Diastolic Blood Pressure Non-Invasive 51 mmHg mmHg 05/23/2022 11:45 EST Respiratory Rate - Anes 0 br/min br/min 05/23/2022 11:44 EST Systolic Blood Pressure Non-Invasive 126 mmHg mmHg Diastolic Blood Pressure Non-Invasive 58 mmHg mmHg 05/23/2022 9:17 EST Temperature Temporal Artery 36.3 DegC Apical Heart Rate 89 bpm Respiratory Rate 16 br/min Systolic Blood Pressure Non-Invasive 118 mmHg Diastolic Blood Pressure Non-Invasive 73 mmHg . Mental status: at preoperative baseline. Respiratory function: respirations are non-labored, stable. Respiratory support: none. CV function: stable. Cardiovascular support: none. Pain: satisfactory. Nausea status: satisfactory. Postoperative hydration status: within normal limits. Notes: Patient is sufficiently recovered from anesthesia to participate in the evaluation. No follow-up care needed. No complications post-anesthesia.. Digitally Signed by BRIAN ESTEBAN MD on 05/23/2022 01:52 PM [facility] 05-23-2022 Anesthesiology Consult note Patient: SHAYY VARGHESE Age: 31 years Sex: Female : 1990 Associated Diagnoses: None Author: ALESSANDRO YANG MD Preoperative Information Time of last food or liquid consumption: 05/23/2022 00:00:00 Anesthesia history Patient's history: negative, currently . Family's history: negative. Health Status Allergies: Allergic Reactions (Selected) Severity Not Documented Penicillin- Hives, itching and rash., Allergies (1) ActiveReaction penicillinItching Current medications: (Selected) Inpatient Medications Ordered Cleocin: 900 mg, 50 mL, 100 mL/hr, IV Piggyback, PREOP pharm Garamycin: 120 mg, 3 mL, 106 mL/hr, IV Piggyback, PREOP pharm LR 1,000 mL: 20 mL/hr, Intravenous lidocaine 1% preservative-free injectable solution: 2.5 mg, 0.25 mL, Intradermal, prep pharm Documented Medications Documented AD oral tablet: 1 tab(s), Oral, qAM, 90 tab(s), 0 Refill(s), Medications (4) Active Scheduled: (3) clindamycin PMX 900 mg 50 mL, IV Piggyback, PREOP pharm gentamicin 120 mg 3 mL, IV Piggyback, PREOP pharm lidocaine 1% (MPF) 2 mL vial pf 2.5 mg 0.25 mL, Intradermal, prep pharm Continuous: (1) Lactated Ringers 1,000 mL 1,000 mL, Intravenous, 20 mL/hr PRN: (0) Problem list: Medical / SNOMED CT [id number] / Confirmed, Active Problems (2) Ovarian mass Histories Past Medical History: No active or resolved past medical history items have been selected or recorded. Family History: Breast cancer Grandparent Comments: 04/17/2022 15:12 WILLIET - ALFONSO RAZA MD noted in her late 50s, denies BRCA Procedure history: Tonsillectomy and adenoidectomy ([id number]) on 04/09/2012 at 21 Years. Social History Social & Psychosocial Habits Alcohol 04/17/2022 Use: Past Type: Beer Frequency: 1-2 times per week Has alcohol use interfered with work or home life: No Do you ever drink more than intended: No Has anyone been hurt or at risk by your drinking: No Ready to change: No Concerns about alcohol use in household: No Substance Abuse 04/17/2022 Use: Never 2Risk Assessment: Denies Substance Abuse Tobacco 04/17/2022 Tobacco Use: Never (less than 100 in l 2Risk Assessment: Denies Tobacco Use Home/Environment 05/10/2022 Domestic Concerns None Living situation: Home/Independent Marital Status of Patient if Patient Independent Adult: Unmarried . Physical Examination Vital Signs 05/23/2022 9:17 EST Temperature Temporal Artery 36.3 DegC Apical Heart Rate 89 bpm Respiratory Rate 16 br/min Systolic Blood Pressure Non-Invasive 118 mmHg Diastolic Blood Pressure Non-Invasive 73 mmHg Vital Signs(last 24 hrs) Last Charted Resp Rate 16 br/min (MAY 23 09:17) [id number] mmHg (MAY 23 09:17) DBP73 mmHg (MAY 23:17) Measurements from flowsheet : Measurements 05/23/2022 9:17 EST Height 167.8 cm Height in inches 66.1 inch(es) Admission Weight 98.9 kg Weight Lbs 217.6 lb [place] Body Weight 59.44 kg Admission Body Mass Index 35.12 m2 Pain assessment: Pain Assessment 05/23/2022 9:17 EST Primary Pain Intensity 0 Pain Scale Type 0-10 Pain scale . General: Alert and oriented. Airway: Mallampati classification: II (soft palate, fauces, uvula visible). Dentition Evaluation: Own teeth. Respiratory: Lungs are clear to auscultation, Respirations are non-labored. Cardiovascular: Normal rate, Regular rhythm. Heart Sounds: Normal. Review / Management Results review: No qualifying data available , Lab results 05/23/2022 9:30 EST SN - Preop - CTm Pt Ready for OR/Proced 05/23/2022 9:30 05/23/2022 9:30 EST SN - Preop - CTm Pt in SDS Room 05/23/2022 9:15 05/23/2022 9:29 EST Antecubital Right 05/23/2022 20 gauge Peripheral IV Activity: Insert new site Peripheral IV Dressing Condition: Clean, Dry, Intact Peripheral IV Dressing Activity: Applied, Transparent dressing Peripheral IV Line Status/Patency: Continuous infusion Peripheral IV Site Condition: No complications Peripheral IV Equipment: Manual Peripheral IV Number of Attempts: 1 05/23/2022 9:28 EST Lactated Ringers Injection Begin Bag 1,000 mL mL 05/23/2022 9:22 EST Ed-Safety, Fall Verbalizes/Nonverbally indicates understanding Individuals Taught Patient, Parent Learning Readiness Willing to learn Barriers to Learning None evident Teaching Method Explanation, Printed materials Preferred Written Language Romanian Family/Caregiver Prefer Written Language Romanian Preferred Spoken Language Romanian Family/Caregiver Prefer Spoken Language Romanian Surgical Site Infection Prevention SSI FAQ provided, Hand hygiene Pre Procedure/Surgery Education Appropriate expectations, Date/Time of procedure/surgery, Hospital gown requirement worn to OR, Leave valuables, jewelry, wedding ring at home, Meds to take or hold, Responsible hearse driver for discharge, Surgical skin prep Ed-Safety Verbalizes/Nonverbally indicates understanding 05/23/2022 9:20 EST Baby A FHR Monitoring Method: Ultrasound 05/23/2022 9:17 EST Height 167.8 cm Height in inches 66.1 inch(es) Admission Weight 98.9 kg Weight Lbs 217.6 lb [place] Body Weight 59.44 kg Admission Body Mass Index 35.12 m2 Temperature Temporal Artery 36.3 DegC Apical Heart Rate 89 bpm Respiratory Rate 16 br/min Systolic Blood Pressure Non-Invasive 118 mmHg Diastolic Blood Pressure Non-Invasive 73 mmHg Primary Pain Intensity 0 Pain Scale Type 0-10 Pain scale Heart Rhythm Regular Oxygen Therapy Room air Oxygen Saturation 99 % Abdomen Description Soft Abdomen Palpation Non-Tender Bowel Sounds All Quadrants Present Skin Temperature Warm Skin Description [place], Normal for ethnicity Mucous Membrane Color [place] IV Present Present Neurological Symptoms Patient denies Characteristics of Speech Clear Level of Consciousness Alert Strength All Extremities Strong Tone All Extremities Normal Sensation All Extremities Intact Violence Risk Confused No Violence Risk Irritable No Violence Risk Boisterous No Violence Risk Verbal Threats No Violence Risk Physical Threats No Violence Risk Attacking Objects No Violence Risk Predictor Score 0 Affect/Behavior Appropriate, Calm, Cooperative Orientation Oriented x 4 Allergies Yes Consent Form Signed Yes Patient Dressed In Hospital gown CHG Preoperative Wash/Wipe Night before procedure, Day of procedure, Site specific wipe Preop Nasal Swab Povidone-Iodine CHG Skin Prep Completed for Eligible Surgery History & Physical Update On Chart Yes History & Physical On Chart Yes Obstructive Sleep Apnea Assess Completed Yes MRSA/MSSA Protocol Yes Belongings At Bedside Pt participated in reconciliation, Other: all belongings in pts room NPO Status Maintained Standard Safety ID band on, Bed in low position, Safety level maintained Demonstrates Correct Call Light Use Yes Allergy Band on and Verified Yes Patient ID Band on and Verified Yes Last Fluid Intake 05/22/2022 22:00 Last Food Intake 05/22/2022 22:00 Last Void 05/23/2022 9:22 05/23/2022 9:14 EST Sensory Deficits None Safety Brochure Information Reviewed Yes Yessenia Bunch Video Viewed No Barriers to Learning None evident Teaching Method Explanation, Printed materials Teaching Evaluation Verbalizes/Nonverbally indicates understanding Discharge To, Anticipated Home independently Personal Devices, Patient Valuables None Admission Note-Nursing Same Day Patient History (Modified) 05/23/2022 0:00 EST 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 Assessment and Plan [place] Society [employer] Anesthesiologists (ASA) physical status classification: Class II. Anesthetic Preoperative Plan Anesthetic technique: General. Maintenance airway: Oral endotracheal tube. Risks discussed: nausea, vomiting, headache, sore throat, dental injury, hypotension, allergic reaction, serious complications. Informed consent: signed by patient. Notes: //, Patient seen and examined by me, the medical record was reviewed, lab results and cardiovascular studies examined and noted. Anesthesia was explained in detail and questions were invited and answered. We will proceed as outlined in the plan above.. Digitally Signed by ALESSANDRO YANG MD on 05/23/2022 10:30 AM [facility] 05-20-2022 History and physical note Date of Service 05/23/[address] Corrales PGY-2 documenting on behalf of Dr. Raza. Patient underwent pre-admission testing 05/10 without concerns Labs: Tumor markers obtained by primary ObGyn: CA125- 34.1, CEA- 0.4, AFP 8.2 (however not maternal serum in the setting of can be falsely elevated), LDH 151 05/10: 8.8>13.4/39.1<254, Na 136, K 4.2, Cr 0.48 Imaging: no new EKG: not performed Plan: 31 yo patient at 14/6 for diagnostic laparoscopy and unilateral salpingo-oophorectomy in the setting of a 9x9 cm symptomatic heterogenous ovarian mass with unremarkable tumor markers. History and Physical Chief Complaint NEW PATIENT Ovarian mass in History of Present Illness This is a 31-year-old G3, P2 currently at 9 weeks and 5 days who presents for surgical consultation from Dr. Sonia Mendez ELEMENTARY READING TUTOR at [facility] in [facility] for incidentally found to have a 8.2 x 9.0 x 9.0 cm heterogenous left ovarian mass while undergoing routine early obstetric ultrasound. Patient had been complaining of 2 weeks of intermittent dull achy back pain, however nothing that persisted. There appears to be good blood flow to this left ovarian mass the right ovary appears normal by initial dating patient will have an RAMANDEEP of 11/15/2022, her LMP was 02/08/2022. Tumor markers ordered per Dr. Mendez, currently pending. Discussed with her management of these large ovarian cysts on , patient with some dull achy pain however nothing persistent there is a possibility of an intermittent torsion. Discussed that her risks of torsion are at highest after delivery however followed by the second trimester. Discussed management options including close observation surgical management with oophorectomy and less often cystectomy. Patient is concerned about torsion currently already feeling intermittent pain wishes to proceed with salpingo-oophorectomy on that side. Discussed that the safest time to electively proceed with the surgery would be further into the second trimester, however if patient's does have signs and symptoms associate with an ovarian torsion would proceed in an emergent fashion. Risk benefits alternatives of a laparoscopic oophorectomy and discussed, including the risk of bleeding and infection injury to surrounding organs, also discussed the risk of miscarriage. Specifically discussed the risks of bleeding requiring transfusion, infection requiring antibiotics, and risk to surrounding organs including the bowel ureters bladder and vasculature. Discussed that there is an increased risk of miscarriage when patients undergo general anesthesia which is decreased if surgery occurs in the second trimester however it is not 0. Also discussed the fact that she is she may have some issues with anesthesia including a slightly increased risk of aspiration pneumonia from reflux. Questions answered consent signed. Family History Breast cancer: Grandparent.Negative: Mother, Father, Sister, Brother, Daughter and Son. Cancer of colon: Negative: Mother, Father, Sister, Brother, Daughter, Son and Grandparent. Cancer of ovary: Negative: Mother, Father, Sister, Brother, Daughter, Son and Grandparent. Malignant tumor of pancreas: Negative: Mother, Father, Sister, Brother, Daughter, Son and Grandparent. Malignant tumor of prostate: Negative: Mother, Father, Sister, Brother, Daughter, Son and Grandparent. Malignant tumor of uterus: Negative: Mother, Father, Sister, Brother, Daughter, Son and Grandparent. Review of Systems See HPI Physical Exam Vital Signs and Measurements This Visit - Last 24 Hours T: 36.6 C (Oral) HR: 95 RR: 16 SpO2: 98% HT: 167.6 cm WT: 102.1 kg BMI: 36.35 General Appearance: No immediate distress Head: Normocephalic atraumatic Lungs: No increased work of breathing Abdomen: Soft Results 04/13/22 dating obstetric ultrasound-[facility] at 9 weeks and 1 day, normal-appearing right ovary, left ovary measuring 8.2 x 9.0 x 9.0 cm heterogenous in nature Normal markers reviewed independently interpreted and discussed with the patient. CA125- 34.1, CEA- 0.4, AFP 8.2 (however not maternal serum in the setting of can be falsely elevated), LDH 151 Performance Scales and Status No documentation within the last 12 months Assessment/Plan Currently 31-year-old at 9 weeks and 5 days gestation, with a symptomatic 9 cm ovarian mass which currently shows no evidence of carcinomatosis, tumor markers are pending. Patient desires surgical management for this problem due to her risk of torsion. Discussed with proceeding with surgery when she is closer to 15 to 16 weeks as an elective surgery however if any signs of torsion would proceed much sooner. Ovarian mass 31-year-old at 9 weeks and 5 days gestation with a symptomatic 9 cm ovarian mass currently with no evidence of carcinomatosis, tumor markers were ordered and pending. Patient desires surgical management for this problem due to the risk of torsion, there is a possibility of intermittent torsion at this time however her pain is not persistent. Discussed if tumor markers return abnormal would recommend collaboration with Dr. Aguiar. If normal and patient shows no evidence of torsion would prefer to schedule surgery closer to 15 to 16 weeks to decrease risk of miscarriage. Encounter time: >30 minutes. This includes review of the medical records, review the lab work, documentation in the EMR, [id number] time and counseling with the patient, and care coordination. Orders: Schedule Procedure/Surgery Staging Information No information available Problem List/Past Medical History Ongoing No qualifying data Historical No qualifying data Procedure/Surgical History Tonsillectomy and adenoidectomy: 04/09/12 Social History Alcohol Use: Past. Type: Beer. Frequency: 1-2 times per week. Has alcohol use interfered with work or home life: No. Do you ever drink more than intended: No. Has anyone been hurt or at risk by your drinking: No. Ready to change: No. Concerns about alcohol use in household: No., 04/17/2022 Substance Abuse Use: Never., 04/17/2022 Tobacco Nicotine Use: Never (less than 100 in lifetime)., 04/17/2022 Medications vitamins 1 tab daily Allergies penicillin (Itching, Rash, Hives) Digitally Signed by LILY CORRALES MD on 05/20/2022 09:25 AM Digitally Signed by LILY CORRALES MD on 05/20/2022 09:30 AM [facility] Evaluation + Plan note Future Appointments Appointment Date:06/05/2022 10:00:00 AM Scheduled Provider:ALFONSO RAZA MD Location:PROCESSING OPERATOR ONC Appointment Type:SO OV Post Op [facility] Diagnosis Urinary retention- Primary Unspecified retention of urine Fibroid [facility] cervix [facility] N[facility] No data available for this section [facility] Hospital Discharge instructions No data available for this section [facility] Progress note No data available for this section [facility] Summary Purpose Family History No Family History Records FoundNo Family History Records FoundNo Family History Records FoundNo Family History Records Found Advance Directives No Advanced Directives Records FoundLatest Code Status on File Code Status Date Activated Date Inactivated Comments Full Code 11/19/2022 12:47 PM 11/21/2022 5:37 PM Latest Code Status on File Code Status Date Activated Date Inactivated Comments Full Code 11/19/2022 12:47 PM 11/21/2022 5:37 PM Reason for Referral Specialty Diagnoses / Procedures Referred By Contac t Referred To Contact Radiology Diagnoses Fibroid of cervix Procedures MR pelvis w and wo contrast Adri Cota MD [address] [address] Referral ID Status Reason Start Date Expiration Date V isits Requested Visits Authorized [id number] Pending Review 05/09/2023 05/08/2024 1 1 Specialty Diagnoses / Procedures Referred By Contac t Referred To Contact Urogynecology Diagnoses Urinary retention Procedures [place] OFFICE/OUTPATIENT [facility] [place] 60-74 MINUTES Adri Cota MD [address] [address] Gaby De Jesus DO [address] [place] [address] Referral ID Status Reason Start Date Expiration Date Visits Requested Visits Authorized [id number] Pending Review Specialty Services Required 05/09/2023 05/08/2024 1 1 Additional Source Comments INFORMATION SOURCE (unrecogn ized section and content) DATE CREATED AUTHOR AUTHOR'S ORGANIZ ATION 06/06/2022 [facility] ([place]) DATE CREATED AUTHOR AUTHOR'S ORGANIZ ATION 12/31/2022 [facility] DATE CREATED AUTHOR AUTHOR'S ORGANIZ ATION 05/19/2023 [facility] Care Team (unrecognized sect ion and content) Care Team Personnel Name: KAUSHIK ROJO MD Member Role: Primary Care Physician Address: Address: [facility] [address] [place] [address]- [place] Name: ALFONSO RAZA MD Position: P4 Oncology Provider Med Service: AMB Gynecologic Onc Member Role: OBGYN Address: Address: [address] [place] [address] Gynecology On[address] Care Team Related Persons Name: DEANA RODRÍGUEZ Care Team Personnel Name: KAUSHIK ROJO MD Member Role: Primary Care Physician Address: Address: [facility] [address] [place] [address]- [place] Name: ALFONSO RAZA MD Position: P4 Oncology Provider Member Role: OBGYN Address: Address: [address] [place] [address] Gynecology Oncology [place], [place] [address] Related Persons Name: DEANA RODRÍGUEZ Care Team Personnel Name: KAUSHIK ROJO MD Member Role: Primary Care Physician Address: Address: [facility] [address] [place], [place] [address] Name: ALFONSO RAZA MD Position: P4 Oncology Provider Member Role: OBGYN Address: Address: [address] [place] [address] Gynecology Oncology [place], [place] [address] Related Persons Name: DEANA RODRÍGUEZ Care Team Personnel Name: KAUSHIK ROJO MD Member Role: Primary Care Physician Address: Address: [facility] [address] [place] [address]- Name: ALFONSO RAZA MD Position: P4 Oncology Provider Member Role: OBGYN Address: Address: [address] [place] [address] Gynecology Oncology [place], [place] [address] Care Team Related Persons Name: DEANA RODRÍGUEZ Reason for Visit (unrecogniz ed section and content) Reason Comments New Patient AD SETTER-MFM referral- cer vical fibroid Specialty Diagnoses / Procedures Referred By Prabhjot t Referred To Contact Gynecology Diagnoses Intramural leiomyoma of uterus Procedures [place] OFFICE/OUTPATIENT [facility] 60-74 MINUTES Shanta Armstrong, STAFF COUNSELOR - [place] [address] Adri Cota MD [address] [place] [address] Referral ID Status Reason Start Date Expiration Date V isits Requested Visits Authorized [id number] Pending Review 11/26/2022 11/26/2023 1 1 Care Teams (unrecognized sec tion and content) In Home Sales Representative Relationship Specialty Start Date End Date Kaushik Rojo MD [address] [place] [address] PCP - General Geriatric Medicine 03/08/23 In Home Sales Representative Relationship Specialty Start Date End Date Kaushik Rojo MD [address] [place], [place] [address] PCP - General Geriatric Medicine 03/08/23 FOR RECORDS PERTAINING TO PATIENTS WHO ARE OR HAVE BEEN ENROLLED IN A CHEMICAL DEPENDENCY/SUBSTANCEABUSE PROGRAM, SOME INFORMATION MAY BE OMITTED. This clinical summary was aggregated from multiple sources. Caution should be exercised in using it in the provision of clinical care. This summary normalizes information from multiple sources, and as a consequence, information in this document may materially change the coding, format and clinical context of patient data. In addition, data may be omitted in some cases. CLINICAL DECISIONS SHOULD BE BASED ON THE PRIMARY CLINICAL RECORDS. [employer] [facility]. provides no warranty or guarantee of the accuracy or completeness of information in this document.
[2023-08-31 03:08] LABS: Bacteria 0 SEEN /hpf (None Seen); Mucous, Urine 0 SEEN /hpf (<or=2+); Red Blood Cells-Urine 0 SEEN /hpf (0-5); Squamous Epithelial Cells - UA 0 SEEN /hpf (5-10); White Blood Cells 0 SEEN /hpf (0-5)
[2023-08-31 03:09] LABS: Color, Urine Yellow (Yellow); Glucose, Dipstick Normal (Normal); Ketone-Dipstick Negative (Negative); Leukocyte Esterase-Dipstick Negative /ul (Negative); Nitrite-Dipstick Negative (Negative); Occult Blood-Urine 10 /ul (Negative); Protein-Dipstick Negative (Negative); Specific Gravity, Urine 1.015 (1.002-1.030); Urine Bilirubin Dipstick Negative (Negative); Urine Clarity Clear (Clear); Urine Urobilinogen Normal (Normal)
--- NOTE | 2023-08-31 04:12 | EX.ED.DYSGE1 ---
HPI History of Present Illness Chief Complaint: Complaint Informant: patient Narrative Narrative: Patient is a 32-year-old female who states she has a 14 cm fibroid mass on her cervix. She states that she follows with a specialist at [facility] who has discussed surgical removal of it. She states that she noticed decreased urination on Saturday and of this week but was not greatly concerned as she did not have dysuria and she was still able to urinate. She states Saturday urination decreased even further to the point where she is just dribbling . She denies any fevers or chills but states now she has pain and spasm and has concerned that she may need a catheter and secondary to this comes in for evaluation [facility] Medical History (Updated 08/31/23 @ 04:[address] Anselmo Espinoza, ) Frequent headaches Home Medications vits,calcium no.78-iron fumarate-folic acid 29 mg-1 mg tablet 1 tab PO DAILY 12/16/19 [History Last Taken 12/15/19 19:00] Allergy/AdvReac Type Severity Reaction Status Date / Time Penicillins Allergy Rash Verified 08/31/23 00:16 Social History Smoking Status: Never smoker [facility] ED Constitutional Constitutional ED: Denies chills or fever(s) Eyes Eyes: Denies change in vision ENT ENT ED: Denies sore throat Cardiovascular Cardiovascular: Denies chest pain Respiratory/Chest Respiratory/Chest: Denies cough or dyspnea Gastrointestinal Gastrointestinal: Reports abdominal pain; Denies diarrhea, nausea or vomiting Genitourinary Genitourinary ED: Reports other Details: Positive urinary retention ; Denies dysuria Musculoskeletal Musculoskeletal: Denies back pain or myalgias Integumentary Denies rash Neurologic Neurologic: Denies headache(s) Hematologic/Lymphatic Hematologic/Lymphatic: Denies easy bleeding or easy bruising EXAM Physical Exam Const Vital Signs: 08/31/23 00:18 08/31/23 04:16 08/31/23 04:19 Temperature 98.3 F 98.4 F 98.1 F Temperature Source Temporal Temporal Pulse Rate 122 H 120 H 122 H Respiratory Rate 18 16 16 Blood Pressure 150/84 H 143/83 H 143/83 H Blood Pressure Mean 106 103 103 Pulse Ox 97 95 96 Oxygen Delivery Method Room Air Positive well nourished and well developed General Appearance ED: well developed; Negative for pallor HEENT HEENT Narrative: Normocephalic atraumatic Eyes PERRL and EOMs intact bilaterally General Eye ED: Negative for scleral icterus Neck supple Neck Narrative: No nuchal rigidity or meningeal signs noted Resp normal respiratory effort and clear to auscultation bilaterally Cardio regular rhythm Rate: tachycardic and other Other Details: Radial and carotid pulses are equal and symmetric GI GI Narrative: Patient has organomegaly with firmness and pain to palpation in the suprapubic region that extends up to just below the umbilicus consistent/concerning for urinary retention. The remainder of the abdomen is soft and nonsurgical with normal active bowel sounds Auscultation: normoactive bowel sounds Palpation: soft Back/Spine no CVA tenderness Extremity normal to inspection Neuro oriented x3, CN's II-XII intact bilaterally and no sensory deficits noted Sensorium / Orientation: alert Motor Exam: strength 5/5 throughout Psych mental status grossly normal Skin no rashes or lesions noted General Skin Exam: Negative for jaundice or pallor MDM MDM MDM Narrative Medical decision making narrative: Patient arrived to the ER hypertensive and slightly tachycardic but was felt this was secondary to pain. She is afebrile and has no signs of systemic infection. She reported her urination was minimal for the last few days and now has slowed to a dribble this is concerning for acute urinary retention most likely secondary to her cervical fibroid. There is also possibility of urinary tract infection versus pyelonephritis versus obstructive nephropathy. The patient had a Sharma catheter placed and there was drainage of urine but roughly only 100 mL. Bladder scan demonstrated roughly 1100 mL in the bladder. The fact that the bladder cannot be decompressed with a Sharma catheter secondary to the mass is concerning indicating patient may need surgery or suprapubic catheter in order to prevent rupture of her bladder. The case was discussed with her CR[employer] COORDINATOR Dr. Carrion. She recommends transfer from ER to ER at [facility] where she can evaluate the patient in the ER and also consult urology. This plan of care was discussed with the patient and she is agreeable to it. As she is hemodynamically stable I will allow her to go by car as this is the faster option and as waiting multiple hours for EMS transport could lead to complications such as bladder rupture. History & Record Review Discussion w/independent historian: Patient Lab Data Attestation: I reviewed the patient's lab results. Labs: Laboratory Results - last 24 hr 08/31/23 08/31/23 03:03 04:15 WBC 8.3 RBC 5.51 H Hgb 15.1 H Hct 47.3 H MCV 85.8 MCH 27.4 MCHC 31.9 L RDW Std Deviation 41.5 RDW Coeff of Ofelia 13.2 Plt Count 230 MPV 10.7 Immature Gran % (Auto) 0.100 Neut % (Auto) 72.1 H Lymph % (Auto) 20.2 [place] % (Auto) 7.3 Eos % (Auto) 0.1 Baso % (Auto) 0.2 Absolute Neuts (auto) 6.0 Absolute Lymphs (auto) 1.68 Nucleated RBC % 0 Urine Color Yellow Urine Clarity Clear Urine pH 8.0 Ur Specific [place] 1.015 Urine Protein Negative Urine Glucose (UA) Normal Urine Ketones Negative Urine Occult Blood 10 H Urine Nitrite Negative Urine Bilirubin Negative Urine Urobilinogen Normal Ur Leukocyte Esterase Negative Urine RBC 0 SEEN Urine WBC 0 SEEN Ur Squamous Epith Cells 0 SEEN Urine Bacteria 0 SEEN Urine Mucus 0 SEEN Discharge Plan Triage Chief Complaint: Complaint ED Provider: Anselmo Espinoza Dx/Rx/DC Orders Clinical Impression: Mass of uterine cervix, Acute urinary retention Prescriptions: No Action vit,[id number] 1 TABLET tablet 1 tab PO DAILY Primary Care Provider: Bladimir Mccarthy Chi Referrals: Bladimir Mccarthy Chi, MD [Primary Care Provider] - Disposition Disposition: Acute Care Hospital Discharge Location: [facility]
[2023-08-31 04:16] VITALS: BP 143/83; PULSE 120; RESP 16; TEMP 36.9; O2SAT 95
[2023-08-31 04:19] VITALS: BP 143/83; PULSE 122; RESP 16; TEMP 36.7; O2SAT 96
[2023-08-31 04:42] LABS: Absolute Lymphocyte Count 1.68 X10^3/uL (0.83-4.51); Basophil# 0.02 X10^3/uL; Basophil% 0.2 % (0-1); Eosinophil# 0.01 X10^3/uL; Eosinophils% 0.1 % (0-5); Hematocrit 47.3 % (37-47); Hemoglobin 15.1 g/dL (12.0-15.0); Lymphocyte # 1.68 X10^3/ul (0.83-4.51); Lymphocyte % 20.2 % (19-41); Mean Corp Hgb Conc 31.9 g/dL (32-36); Mean Corpuscular Hgb 27.4 pg (27.0-32.0); Mean Corpuscular Volume 85.8 fL (81-99); Mean Platelet Vol. 10.7 fl (6.2-12.0); Monocyte# 0.61 X10^3/uL; Monocyte% 7.3 % (0-10); NRBC Flagged by Analyzer 0 % (0-5); Neutrophil % 72.1 % (47-70); Platelet Count 230 K/mm3 (150-450); RBC Distribution Width CV 13.2 % (11.6-14.6); RBC Distribution Width SD 41.5 fl (35.1-43.9); Red Blood Count 5.51 M/mm3 (4.2-5.4); White Blood Count 8.3 K/mm3 (4.4-11.0)
[2023-08-31 04:59] LABS: ALB/GLOB Ratio 1.1 RATIO (0.9-2.4); AST(SGOT) 15 U/L (15-37); Alanine Aminotransfer ALT/SGPT 28 U/L (13-56); Alkaline Phosphatase 130 U/L (45-117); Anion Gap 5 (5-15); BUN 9 mg/dL (7-18); BUN/Creat Ratio 13.2 RATIO (10-20); Calcium,Total 8.7 mg/dL (8.5-10.1); Chloride 109 mmol/L (98-107); Creatinine, Serum 0.68 mg/dL (0.55-1.02); EST Glomerular Filtration Rate 107 mL/min (>60); Est Glom Filt Rate - Afr Amer 129 mL/min (>60); Estimated Creatinine Clearance 147.62 ml/min; Globulin 3.6 g/dL (2.2-4.2); Glucose 117 mg/dL (74-106); Potassium 3.6 mmol/L (3.5-5.1); Protein, Total 7.6 g/dL (6.4-8.2); Sodium Level 140 mmol/L (136-145)
== END 2023-08-31 04:46 | disposition short-term general hospital (02) ==
PROVIDERS: Emergency Provider Emergency Medicine; PCP Family Medicine Geriatric Medicine; Visit Provider Emergency Medicine
DX: R33.9 Retention of urine, unspecified (principal); N85.9 Noninflammatory disorder of uterus, unspecified
CPT/HCPCS: 51702; 80053; 81001; 85025; 99285

== ENCOUNTER 2023-09-05 23:45 | Emergency (ER) | payer OTHER, SELFPAY ==
[2023-09-05 23:46] VITALS: BP 121/67; PULSE 115; RESP 16; TEMP 36.8; O2SAT 99; BMI 36.6
[2023-09-05 23:49] VITALS: BP 121/67; PULSE 115; RESP 16; TEMP 36.8; O2SAT 99
--- NOTE | 2023-09-06 00:06 | RAD_ITS ---
EXAM: XR CHEST, 2 VIEWS CLINICAL INDICATION: fever TECHNIQUE: Frontal and lateral views of the chest. COMPARISON: No relevant prior studies available. FINDINGS: LUNGS AND PLEURAL SPACES: Unremarkable. No consolidation or edema. No pneumothorax. No effusion. HEART: Unremarkable. Cardiac silhouette not enlarged. MEDIASTINUM: Central airways and mediastinal contour are unremarkable. BONES/JOINTS: Unremarkable. No acute fracture. SOFT TISSUES: Unremarkable. RAD/Chest PA and Lateral IMPRESSION: No radiographic evidence of acute cardiopulmonary disease. Electronically Signed: Brandon Koo MD at 0:30 EST ,
--- NOTE | 2023-09-06 00:07 | EDS_ITS ---
HPI History of Present Illness Chief Complaint: Fever Informant: patient Narrative Narrative: Patient is a 32-year-old female with history of cervical fibroid that led to urinary obstruction/retention and need for emergent surgery. Patient had this performed on September 01. She states she was discharged the next day and has been doing well but she has been noticing urinary frequency. She states this evening she was chilling and also felt feverish and she contacted the nurse line and with concern for postoperative infection was advised to come to the hospital for evaluation. Otherwise she denies any chest pain or shortness of breath nasal congestion sinus pain/pressure or sore throat [facility] Medical History (Updated 09/06/23 @ 01:[address] Anselmo Espinoza, DO) Frequent headaches Home Medications vits,calcium no.78-iron fumarate-folic acid 29 mg-1 mg tablet 1 tab PO DAILY 12/16/19 [History Last Taken 12/15/19 19:00] cephalexin 500 mg capsule 500 mg PO TID 7 days #21 caps 09/06/23 [Rx Last Taken Unknown] ibuprofen 600 mg tablet 600 mg PO Q6H PRN pain 09/06/23 [History Last Taken Unknown] oxycodone 5 mg tablet 5 mg PO Q4H PRN pain 09/06/23 [History Last Taken Unknown] polyethylene glycol 3350 17 gram/dose oral powder 17 g PO DAILY 09/06/23 [History Last Taken Unknown] Allergy/AdvReac Type Severity Reaction Status Date / Time Penicillins Allergy Rash Verified 09/05/23 23:46 Surgical History (Updated 09/05/23 @ 23:46 by Wendy Frausto) H/O total hysterectomy Social History Smoking Status: Never smoker [facility] ED Constitutional Constitutional ED: Reports chills, fever(s) and subjective ENT ENT ED: Denies rhinorrhea or sore throat Cardiovascular Cardiovascular: Denies chest pain, palpitations or racing heartbeat Respiratory/Chest Respiratory/Chest: Denies cough or dyspnea Gastrointestinal Gastrointestinal: Denies abdominal pain, diarrhea, nausea or vomiting Genitourinary Genitourinary ED: Reports urinary frequency; Denies dysuria Musculoskeletal Musculoskeletal: Denies back pain or myalgias Integumentary Denies rash Neurologic Neurologic: Denies headache(s) Hematologic/Lymphatic Hematologic/Lymphatic: Denies easy bleeding or easy bruising EXAM Physical Exam Const Vital Signs: 09/05/23 23:46 09/05/23 23:49 09/06/23 01:28 Temperature 98.3 F 98.3 F 98.3 F Temperature Source Temporal Oral Pulse Rate 115 H 115 H 96 Respiratory Rate 16 16 16 Blood Pressure 121/67 H 121/67 H 121/67 H Blood Pressure Mean 85 85 85 Pulse Ox 99 99 99 Positive well nourished and well developed General Appearance ED: well developed HEENT Reports moist mucous membranes HEENT Narrative: No oral lesions no tongue or lip swelling no signs of infection noted in the posterior pharynx Eyes PERRL and EOMs intact bilaterally General Eye ED: Negative for scleral icterus Neck supple Neck Narrative: No nuchal rigidity or meningeal signs noted Resp normal respiratory effort and clear to auscultation bilaterally Cardio regular rhythm Rate: tachycardic and other Other Details: Tachycardic rate with regular rhythm Radial and carotid pulses are equal and symmetric GI normal to inspection, nondistended, normoactive bowel sounds, non-tender, non- distended and no masses GI Narrative: Patient has postsurgical incisions to the abdomen that are clean dry and intact with mild surrounding ecchymosis Overall there is no pain with palpation no distention no rigidity no guarding no pulsatile mass Auscultation: normoactive bowel sounds Palpation: soft Back/Spine no CVA tenderness Extremity normal to inspection Extremity Narrative: No asymmetric edema no pitting edema negative Homans' sign bilaterally Neuro oriented x3, CN's II-XII intact bilaterally and no sensory deficits noted Sensorium / Orientation: alert Motor Exam: strength 5/5 throughout Psych mental status grossly normal Skin no rashes or lesions noted Skin Narrative: Postsurgical changes to the abdomen as documented above MDM MDM MDM Narrative Medical decision making narrative: Patient arrived to the ER slightly tachycardic but otherwise with normal vitals. She reported just low-grade temperature of approximately 99.4 at home which is not a true fever but did have subjective fevers and chills. With her recent surgical procedure and there is concern that this could be related to atelectasis versus pneumonia versus viral infection versus UTI. Basic blood work was obtained and this shows no elevation to her white count no left shift or lactic acidosis. Also she had no signs of acute kidney injury with a normal creatinine. Chest x-ray revealed no acute lung pathology. We discussed obtaining viral swabs such as COVID influenza and RSV as patient was recently in the hospital but without congestion drainage or cough she did not want these obtained. We also discussed potential D-dimer based on her recent surgery and low-grade fever but she does not have chest pain or shortness of breath or pleu ritic chest pain and there was a concern that the D-dimer would be elevated secondary to the recent surgical procedure and not a true DVT/PE. As her physical exam is not suggesting this she does not want the laboratory study obtained. The patient is urine showed +2 bacteria without white blood cells and there is contamination secondary to epithelial cells. However as she had a recent procedure as well as urinary retention there is a high likelihood that this is truly infected as she has urinary frequency and not secondary to straight contamination. Therefore the urine will be sent for culture but based on my high concern for infection she will be started on antibiotics. However she does not have findings to suggest urosepsis or acute kidney injury or pyelonephritis so she is otherwise safe for discharge History & Record Review Discussion w/independent historian: Patient Lab Data Attestation: I reviewed the patient's lab results. Labs: Laboratory Results - last 24 hr 09/06/23 09/06/23 00:00 00:02 WBC 10.0 RBC 4.61 Hgb 12.8 Hct 39.5 MCV 85.7 MCH 27.8 MCHC 32.4 RDW Std Deviation 39.8 RDW Coeff of Ofelia 12.8 Plt Count 285 MPV 10.2 Immature Gran % (Auto) 0.600 Neut % (Auto) 57.8 Lymph % (Auto) 31.9 [place] % (Auto) 8.2 Eos % (Auto) 1.1 Baso % (Auto) 0.4 Absolute Neuts (auto) 5.8 Absolute Lymphs (auto) 3.18 Nucleated RBC % 0 Sodium 137 Potassium 3.9 Chloride 106 Carbon Dioxide 25.0 Anion Gap 6 BUN 12 Creatinine 0.70 Estim Creat Clear Calc 142.36 Est GFR (MDRD) Af Amer 126 Est GFR (MDRD) Non-Af 104 BUN/Creatinine Ratio 17.2 Glucose 106 Lactic Acid 1.2 Calcium 9.6 Urine Color Yellow Urine Clarity Clear Urine pH 6.5 Ur Specific [place] 1.010 Urine Protein Negative Urine Glucose (UA) Normal Urine Ketones Negative Urine Occult Blood 10 H Urine Nitrite Negative Urine Bilirubin Negative Urine Urobilinogen Normal Ur Leukocyte Esterase 25 H Urine RBC 0 SEEN Urine WBC 0-5 SEEN Ur Squamous Epith Cells 10-25 SEEN Ur Transition Epith Cell 0 SEEN Ur Renal Epithelial Cell 0 SEEN Urine Bacteria 2+ Urine Mucus 0 SEEN Radiography Diagnostic Testing: Clinical Impression(s) from Imaging Studies Chest X-Ray 09/06/23 00:06 IMPRESSION: No radiographic evidence of acute cardiopulmonary disease. Electronically Signed: Brandon Koo MD at 0:30 EST , Chest x-ray as interpreted by the emergency medicine physician reveals no acute infiltrate pneumothorax or pleural effusion Discharge Plan Triage Chief Complaint: Fever ED Provider: Anselmo Espinoza Dx/Rx/DC Orders Clinical Impression: UTI (urinary tract infection), Postoperative fever Instructions: Urinary Tract Infections in Women, ED Fever Control (Adult) Prescriptions: New cephalexin 500 mg capsule 500 mg PO TID 7 Days Qty: 21 0RF No Action vit,[id number] 1 TABLET tablet 1 tab PO DAILY ibuprofen 600 mg tablet 600 mg PO Q6H PRN (Reason: pain) Patient Comments: TAKE 1 TABLET (600 MG) BYWMOUTH EVERY 6 HOURS NEEDED ALTERNATING WITH ACETAMINOPHEN FOR 10 DAYS. (SEPARATE BY 3 HOURS) oxycodone 5 mg tablet 5 mg PO Q4H PRN (Reason: pain) Patient Comments: Take 1 tablet (5 mg) bybmouth every 4 hours asnneeded for severe paini(7-10) for up to 5 days. polyethylene glycol 3350 17 gram/dose powder 17 g PO DAILY Patient Comments: Take 17 g by mouth dailyCfor 5 doses. Rx Instructions: ONE MORE DOSE Primary Care Provider: Bladimir Mccarthy Chi Referrals: Bladimir Mccarthy Chi, MD [Primary Care Provider] - Activity Restrictions/Additional Instructions: Please follow-up with your surgeon for repeat evaluation and return to the ER should you have any further concerns or worsening of symptoms Disposition Disposition: Home, Self Care Discharge Date/Time: 09/06/23 01:30
[2023-09-06 00:13] LABS: Mucous, Urine 0 SEEN /hpf (<or=2+); Red Blood Cells-Urine 0 SEEN /hpf (0-5)
[2023-09-06 00:22] LABS: Absolute Lymphocyte Count 3.18 X10^3/uL (0.83-4.51); Absolute Neutrophil Count 5.8 X10^3/uL (2.0-7.7); Basophil# 0.04 X10^3/uL; Basophil% 0.4 % (0-1); Eosinophil# 0.11 X10^3/uL; Eosinophils% 1.1 % (0-5); Hematocrit 39.5 % (37-47); Hemoglobin 12.8 g/dL (12.0-15.0); Lymphocyte # 3.18 X10^3/ul (0.83-4.51); Lymphocyte % 31.9 % (19-41); Mean Corp Hgb Conc 32.4 g/dL (32-36); Mean Corpuscular Hgb 27.8 pg (27.0-32.0); Mean Corpuscular Volume 85.7 fL (81-99); Mean Platelet Vol. 10.2 fl (6.2-12.0); Monocyte# 0.82 X10^3/uL; Monocyte% 8.2 % (0-10); NRBC Flagged by Analyzer 0 % (0-5); Neutrophil # 5.77 X10^3/uL (2.7-7.7); Neutrophil % 57.8 % (47-70); Platelet Count 285 K/mm3 (150-450); RBC Distribution Width CV 12.8 % (11.6-14.6); RBC Distribution Width SD 39.8 fl (35.1-43.9); Red Blood Count 4.61 M/mm3 (4.2-5.4)
--- OUTSIDE RECORDS SUMMARY | 2023-09-06 00:22 | XMS RPT_ITS | CCD ---
Author Name Unknown Address [address] [place] [address] Organization [facility] Care Team Providers Care Brand Designer Name Role Phone Aly JONES, Talia Cottrell Unavailable [phone] Diogo Mendez MD Unavailable LIA Gómez RN, Zainab Abrams Unavailable Abel Lu MD, Talia Cottrell Unavailable [phone] Diogo Mendez MD Unavailable DR KAUSHIK ROJO [...] Primary Care Unavailable DULCE MANJARREZ Attending Unavailjustino pritchard ALIA, MELISSA-CHI Primary Care Unavailable SONIA MENDEZ Referring Unavailable NO PRIMARY CARE, Primary Care Unavailable SHANTA ARMSTRONG Attending Unavailable SONIA MENDEZ Referring Unavailable NO PRIMARY CAREMD Primary Care Unavailable ANDREA SONIA N Referring Unavailable HENRIETTA GALLEGOS Attending Unavailable Melissa Rojo MDSharif Primary Care Provider [phone] ADRI COTA Attending Unavailable SHANTA ARMSTRONG Referring Unavailable ALIA, MELISSA-CHI Primary Care Unavailable ADRI COTA Attending Unavailable ALIA, MELISSA-CHI Primary Care Unavailable DULCE MANJARREZ Admitting Unavailable DULCE MANJARREZ Attending Unavailable Allergies Allergy Classification Reported Allergen(s) Allergy Type Date of Onset Reaction(s) Facility (12 sources) Penicillins (Antibiotic) drug allergy [address] [facility] Work Phone: (4 sources) Penicillin; Translations: [penicillin] Drug Allergy Itching (finding), Eruption of skin (disorder), Weal (disorder) [facility] (7 sources) Penicillin G Drug Allergy 3 [facility] (1 source) Penicillins; Translations: [PENICILLINS] Propensity to adverse reactions to drug (disorder) 2 [facility] Repository Medications Current Medications Medication Drug Class(es) Dates Sig (Normalized) Sig (Original) 8 hr acetaminophen 650 mg extended release oral tablet (1 source) Start: 05-23-2022 Tylenol 8 Hour 650 mg oral tablet, extended release Dose : 1,300 mg = 2 tab(s), Oral, q8h, # 24 tab(s), 0 Refill(s), Pharmacy: [facility], 167.8, cm, 05/23/22 9:22:00 [...] every 6 hours PRN pain OXYCODONE-ACETAMIN OPHEN [id number] Talia Lu MD clindamycin 300 mg oral capsule (12 sources) Lincosamide Antibacterial take 1 tablet by mouth four times daily CLINDAMYCIN HCL 300 MG CAPS One tablet by mouth four times daily CLINDAMYCIN HCL [id number] Talia Lu MD ferrous sulfate 325 mg [...] tablet by mouth twice daily SULFAMETHOXAZOLE-T RIMETHOPRIM [id number] Talia Lu MD Problems Active Problems Problem [...] 170.2 cm Adri Cota MD Work Phone: [facility] 03-08-2023 11:00-0400 Body mass index (BMI) [Ratio] 35.24 kg/m2 Adri Cota MD Work Phone: [facility] 03-08-2023 11:00-0400 Body weight 102.06 kg Adri Cota MD Work Phone: [facility] 03-08-2023 11:00-0400 Diastolic blood pressure 79 mm[Hg] Adri Cota MD Work Phone: [facility] 03-08-2023 11:00-0400 Heart rate 84 /min Adri Cota MD Work Phone: [facility] 03-08-2023 11:00-0400 Systolic blood pressure 115 mm[Hg] Adri Cota MD Work Phone: [facility] 05-23-2022 14:08-0500 Body temperature 96.98 [degF] ALFONSO RAZA MD [facility] 05-23-2022 14:08-0500 Diastolic Blood Pressure Non-Invasive 64 1 ALFONSO RAZA MD [facility] 05-23-2022 14:08-0500 Heart rate 92 /min ALFONSO RAZA MD [facility] 05-23-2022 14:08-0500 Reason For Taking VItal Signs ALFONSO RAZA MD [facility] 05-23-2022 14:08-0500 Respiratory rate 16 /min ALFONSO RAZA MD [facility] 05-23-2022 14:08-0500 Systolic Blood Pressure Non-Invasive 106 1 ALFONSO RAZA MD [facility] 05-23-2022 13:50-0500 Body temperature 97.34 [degF] ALFONSO RAZA MD [facility] 05-23-2022 13:50-0500 Diastolic Blood Pressure Non-Invasive 52 1 ALFONSO RAZA MD [facility] 05-23-2022 13:50-0500 Heart rate 96 /min ALFONSO RAZA MD [facility] 05-23-2022 13:50-0500 Mean blood pressure 62 mm[Hg] ALFONSO RAZA MD [facility] 05-23-2022 13:50-0500 Respiratory rate 16 /min ALFONSO RAZA MD [facility] 05-23-2022 13:50-0500 Systolic Blood Pressure Non-Invasive 101 1 ALFONSO RAZA MD [facility] 05-23-2022 13:35-0500 Diastolic Blood Pressure Non-Invasive 45 1 ALFONSO RAZA MD [facility] 05-23-2022 13:35-0500 Heart rate 92 /min ALFONSO RAZA MD [facility] 05-23-2022 13:35-0500 Mean blood pressure 57 mm[Hg] ALFONSO RAZA MD [facility] 05-23-2022 13:35-0500 Respiratory rate 16 /min ALFONSO RAZA MD [facility] 05-23-2022 13:35-0500 Systolic Blood Pressure Non-Invasive 97 1 ALFONSO RAZA MD [facility] 05-23-2022 13:16-0500 Heart rate 93 /min ALFONOS RAZA MD [facility] 05-23-2022 13:16-0500 Mean blood pressure 60 mm[Hg] ALFONSO RAZA MD [facility] 05-23-2022 12:45-0500 Respiratory Rate - Anes 0 br/min ALFONSO RAZA MD [facility] 05-23-2022 12:43-0500 Body temperature 96.98 [degF] ALFONSO RAZA MD [facility] 05-23-2022 12:40-0500 Respiratory Rate - Anes 0 br/min ALFONSO RAZA MD [facility] 05-23-2022 12:35-0500 Respiratory Rate - Anes 17 br/min ALFONSO RAZA MD [facility] 05-23-2022 09:17-0500 Body height 167.8 cm ALFONSO RAZA MD [facility] 05-23-2022 09:17-0500 Body weight 98.9 kg ALFONSO RAZA MD [facility] 05-23-2022 09:17-0500 Heart rate 89 /min ALFONSO RAZA MD [facility] 05-10-2022 10:46-0400 Body height 159 cm ALFONSO RAZA MD [facility] 05-10-2022 10:46-0400 Body temperature 97.34 [degF] ALFONSO RAZA MD [facility] 05-10-2022 10:46-0400 Body weight 101.3 kg ALFONSO RAZA MD [facility] 05-10-2022 10:46-0400 diastolic 79 mm[Hg] ALFONSO RAZA MD [facility] 05-10-2022 10:46-0400 Heart rate 92 /min ALFONSO RAZA MD [facility] 05-10-2022 10:46-0400 systolic 128 mm[Hg] ALFONSO RAZA MD [facility] 01-09-2017 13:23-0400 BMI (Body Mass Index) 26.82 kg/m2 Talia Lu MD [facility] Work Phone: 01-09-2017 13:23-0400 Body Temperature 98.2 [degF] Talia Lu MD [facility] Work Phone: 01-09-2017 13:0400 BP Diastolic 58 mm[Hg] Talia Lu MD [facility] Work Phone: 01-09-2017 13:23-0400 BP Systolic 94 mm[Hg] Talia Lu MD [facility] Work Phone: 01-09-2017 13:0400 Height 167.64 cm Talia Lu MD [facility] Work Phone: 01-09-2017 13:-0400 Pulse (Heart Rate) 67 /min Talia Lu MD [facility] Work Phone: 01-09-2017 13:0400 Respiratory Rate 20 /min Talia Lu MD [facility] Work Phone: 01-09-2017 13:0400 Weight 75.39 kg Talia Lu MD [facility] Work Phone: 01-01-2017 14:12-0400 BMI (Body Mass Index) 26.79 kg/m2 Diogo Mendez MD [facility] Work Phone: 01-01-2017 14:120400 Body Temperature 97.8 [degF] Diogo Mendez MD [facility] Work Phone: 01-01-2017 14:12-0400 BP Diastolic 76 mm[Hg] Diogo Mendez MD [facility] Work Phone: 01-01-2017 14:120400 Height 167.64 cm Diogo Mendez MD [facility] Work Phone: 01-01-2017 14:12-0400 Pulse (Heart Rate) 72 /min Diogo Mendez MD [facility] Work Phone: 01-01-2017 14:12-0400 Pulse Oximetry 100 % Diogo Mendez MD [facility] Work Phone: 01-01-2017 14:12-0400 Respiratory Rate 18 /min Diogo Mendez MD [facility] Work Phone: 01-01-2017 14:120400 Weight 75.3 kg Diogo Mendez MD [facility] Work Phone: 12-27-2016 10:33-0400 BMI (Body Mass Index) 26.92 kg/m2 Talia Lu MD [facility] Work Phone: 12-27-2016 10:33-0400 Body Temperature 97.9 [degF] Talia Lu MD [facility] Work Phone: 12-27-2016 10:33-0400 BP Diastolic 71 mm[Hg] Talia Lu MD [facility] Surgical [facility] Work Phone: 12-27-2016 10:33-0400 BP Systolic 119 mm[Hg] Talia Lu MD [facility] Surgical [facility] Work Phone: 12-27-2016 10:33-0400 Height 167.64 cm Talia Lu MD [facility] Surgical [facility] Work Phone: 12-27-2016 10:33-0400 Pulse (Heart Rate) 87 /min Talia Lu MD [facility] Work Phone: 12-27-2016 10:33-0400 Pulse Oximetry 97 % aTlia Lu MD [facility] Work Phone: 12-27-2016 10:33-0400 Respiratory Rate 20 /min Talia Lu MD [facility] Work Phone: 12-27-2016 10:33-0400 Weight 75.66 kg Talia Lu MD [facility] Work Phone: 12-25-2016 10:45-0400 Height 167.64 cm Talia Lu MD [facility] Work Phone: 12-20-2016 09:150400 BMI (Body Mass Index) 28.08 kg/m2 Talia Lu MD [facility] Work Phone: 12-20-2016 09:150400 Body Temperature 97.6 [degF] Talia Lu MD [facility] Work Phone: 12-20-2016 09:15-0400 BP Diastolic 62 mm[Hg] Talia Lu MD [facility] Work Phone: 12-20-2016 09:15-0400 BP Systolic 107 mm[Hg] Talia Lu MD [facility] Work Phone: 12-20-2016 09:15-0400 Height 167.64 cm Talia Lu MD [facility] Work Phone: 12-20-2016 09:15-0400 Pulse (Heart Rate) 66 /min Talia Lu MD [facility] Surg al [facility] Work Phone: 12-20-2016 09:15-0400 Pulse Oximetry 99 % Talia Lu MD [facility] Surgical [facility] Work Phone: 12-20-2016 09:15-0400 Respiratory Rate 16 /min Talia Lu MD [facility] Surgical [facility] Work Phone: 12-20-2016 09:15-0400 Weight 78.93 kg Talia Lu MD [facility] Surgical [facility] Work Phone: 12-17-2016 15:23-0400 BMI (Body Mass Index) 28.4 kg/m2 Talia Lu MD [facility] Surgical [facility] Work Phone: 12-17-2016 15:23-0400 Body Temperature 97.81 [degF] Talia Lu MD [facility] Work Phone: 12-17-2016 15:23-0400 Body Temperature 97.8 [degF] Talia Lu MD [facility] Work Phone: 12-17-2016 15:23-0400 BP Diastolic 69 mm[Hg] Talia uL MD [facility] Work Phone: 12-17-2016 15:23-0400 BP Systolic 102 mm[Hg] Talia Lu MD [facility] Work Phone: 12-17-2016 15:23-0400 BSA (Body Surface Area) 1.9 m2 [address] Lu [address] [facility] Work Phone: 12-17-2016 15:23-0400 Height 167.64 cm Talia Lu MD [facility] Work Phone: 12-17-2016 15:23-0400 Pulse (Heart Rate) 85 /min Talia Lu MD [facility] Work Phone: 12-17-2016 15:23-0400 Pulse Oximetry 100 % Talia Lu MD [facility] Work Phone: 12-17-2016 15:23-0400 Respiratory Rate 16 /min Talia Lu MD [facility] Work Phone: 12-17-2016 15:23-0400 Weight 79.83 kg Talia Lu MD [facility] Work Phone: Encounters Encounter Date Encounter Type Care Provider Facility Start: 05-09-2023 End: 05-09-2023 ambulatory ADRI COTA [facility] Start: 05-09-2023 End: 05-09-2023 Office outpatient visit 40 minutes Adri Cota MD Work Phone: [facility] Procedures Date Procedure Procedure Detail [...] f 2) Zoster Vaccines (1 of 2) [facility] Start: 05-09-2023 End: 05-09-2024 MR Pelvis WO and W contrast IV MR pelvis w and wo contrast Imaging Routine Fibroid of cervix Expected: 05/09/2023, Expires: 05/09/2024 [facility] Work Phone: Immunizations Immunization Date Immunization Notes Care Provider [facility] 02-13-2007 hepatitis B pediatri c vaccine ALFONSO RAZA MD [facility] 02-13-2007 HPV, unspecified formulation Adri Cota MD Work Phone: [facility] 01-31-2006 hepatitis B pediatri c vaccine ALFONSO RAZA MD [facility] 01-31-2005 hepatitis B pediatri c vaccine ALFONSO RAZA MD [facility] 01-31-2005 measles/mumps/rubell a virus vaccine ALFONSO RAZA MD [facility] NEGATED: Highlighted row has not occurred!11-20-2022 measles, mumps and rubella virus vaccine Adri Cota MD Work Phone: [facility] Payers Date Payer Category Payer Private Health Insurance [employer]IZAB[employer]WS [id number] 2022-Present [address] [place] [address] Commercial [id number] 2022 Unknown [id number] 2022 Unknown [id number] 1992 Unknown [id number] 627 1992 Unknown [id number] 627 1992 Unknown [id number] 627 1992 Unknown [id number] 627 1992 Unknown [id number] 627 1992 Unknown [id number] 479 1992 Unknown [id number] [id number] 479 1992 Unknown [id number] [id number] 479 1992 Unknown [id number] [id number] 479 1992 Unknown [id number] [id number] 479 1992 Unknown [id number] [id number] 479 1992 Unknown [id number] [id number] 479 1992 Unknown [id number] [id number] 479 1992 Unknown [id number] [id number] 479 1992 Unknown [id number] 479 Social History Date Type Detail Facility Start: 04-17-2022 End: 11-19-2022 Tobacco smoking status Never smoked tobacco (finding) [facility] Sex Assigned At Sex [facility] Start: 11-19-2022 Tobacco use and exposure Smokeless tobacco non-user [facility] Start: 11-19-2022 End: 03-08-2023 Alcohol intake Current drinker of alcohol (finding) [facility] Start: 11-19-2022 History SDOH Transport Med 2 [facility] Start: 11-19-2022 History SDOH Housing Places Lived 1 [facility] Start: 11-19-2022 Alcohol Comment socially [facility] Start: 03-02-2022 [facility] Start: 1990 Sex Assigned At Not on file [facility] Start: 11-09-2022 End: 03-08-2023 Exposure to SARS-CoV-2 (event) Not sure [facility] Start: 11-19-2022 End: 03-08-2023 History of Social function [facility] Start: 11-19-2022 End: 03-08-2023 Tobacco use panel [facility] In the past 12 month s, has lack of transportation kept you from medical appointments or from getting medications? No [facility] In the past 12 month s, was there a time when you were not able to pay the mortgage or rent on time? No [facility] Functional Status Date Assessment Result Facility 05-23-2022 Functional Status Awake, Bathroom privileges [facility] 05-23-2022 Functional Status [facility] 05-23-2022 Functional Status [facility] 05-23-2022 Functional Status Maintained [facility] Mental Status Date Assessment Result Facility 05-23-2022 Mental Status Oriented x 4 [facility] 05-23-2022 Mental Status [facility] Clinical Notes 05-20-2022 to 05-09-2023 Assessment [...] laparoscopic myomectomy, possible abdominal myomectomy, possible hysterectomy [facility] 05-09-2023 Evaluation + Plan note Associated [...] laparoscopic myomectomy, possible abdominal myomectomy, possible hysterectomy [facility] 05-09-2023 Miscellaneous Notes Associated Problem(s): Fibroid [...] plan for her documented in this encounter [facility] 05-09-2023 Evaluation + Plan note Associated Problem(s): Urinary retention - likely secondary to fibroid - will refer to urogyn for SIC teaching in case emergency or weekend scenario where she would need it. 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 I do think this would be a safe plan for her [facility] 05-09-2023 History of Present illness Narrative [...] that they are currently in the state [facility]. If the patient is a minor, permission [...] Adri Cota MD documented in this encounter [facility] 04-04-2023 Telephone encounter Note Reviewed records that are scanned in chart. NIL on 12/13/2021. + CT on STI screening, unsure per records of this has been treated. Called patient, left voicemail to call office. Awaiting ultrasound results as well. [facility] 04-04-2023 Miscellaneous Notes Reviewed records that are scanned in chart. NIL on 12/13/2021. + CT on STI screening, unsure per records of this has been treated. Called patient, left voicemail to call office. Awaiting ultrasound results as well. documented in this encounter [facility] 03-08-2023 Evaluation + Plan note Associated Problem(s): Abnormal Pap smear of cervix - Per patient report. -Send ROR today for Pap smear and HPV results, may need colposcopy. -If she does need colposcopy I talked to the patient about highly considering exam under anesthesia for this. [facility] 03-08-2023 Miscellaneous Notes Associated Problem(s): Abnormal [...] after . She will get this at [facility] and send us her images -MRI was also performed at [facility], she will send us the images We will documented in this encounter [facility] 03-08-2023 Evaluation + Plan note Associated [...] after . She will get this at [facility] and send us her images -MRI was also performed at [facility], she will send us the images We will [facility] 03-08-2023 History of Present illness Narrative Images from the original note were not included. Shayy Varghese 03/08/2023 32 y.o. Chief Complaint Patient presents with New Patient [facility]ER-MFM referral- cervical fibroid No LMP recorded. HPI: [...] She underwent CD with Dr. Manjarrez at [facility] in 11/2022. She is currently still breast [...] results. She previously saw Dr Mendez in [place] for primary ob.[employer] who is moving their practice. 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 She would [...] after . She will get this at [facility] and send us her images -MRI was also performed at [facility], she will send us the images [...] and follow up. documented in this encounter [facility] 12-19-2022 Note Lvm 2x/no mychart to return call to schedule referral. 1st attempt 12/04. [facility] 12-19-2022 Telephone encounter Note Lvm 2x/no mychart to return call to schedule referral. 1st attempt 12/04. [facility] 12-19-2022 Miscellaneous Notes Lvm 2x/no mychart to return call to schedule referral. 1st attempt 12/04. Return call to schedule referral w/Dr. Cota documented in this encounter [facility] 12-05-2022 Note Return call to sched ule referral w/Dr. Cota [facility] 12-05-2022 Telephone encounter Note Return call to schedule referral w/Dr. Cota [facility] 12-05-2022 Miscellaneous Notes Return call to schedule referral w/Dr. Cota documented in this encounter [facility] 11-21-2022 Note Department of Obstet rics [...] Information for the patient's : Lopez Varghese [[id number]] male 3505 g (7 lb 11.6 oz) Apgars: Information for the patient's : Lopez Varghese [[id number]] : Infant: Boy; circumcision done Blood Type/Rh: [...] Your Medications These medications were sent to [facility] - [place], [place] - [address] [place] [address] DSS 100 MG capsule ferrous sulfate 325 (65 Fe) MG tablet ibuprofen 600 MG tablet norethindrone 0.35 MG tablet Activity: Activity as tolerated Diet: Regular diet Follow-up Appointments: - visit - Incision check If a patient meets criteria for hypertension, make sure the following are done prior to discharge: [] Order a blood pressure kit through [facility] (or the patient's own pharmacy on the weekend) [] Order the blood pressure log through [facility] [facility] [] Place an office visit or telephone [...] her physician if any of these occur. [facility] 11-20-2022 Note Patient ambulated wi th little assistance to the bathroom at this time. Pads and underwear changed. Education provided about dax care and abnormal signs of bleeding. No questions or concerns voiced. Patient ambulated independently back to bed. Call light within reach. [facility] 11-19-2022 Note Patient: Shayy mart Procedure Summary Date: 11/19/22 Room / Location: [address] Labor and Delivery Anesthesia Start: 1406 [...] once all PACU criteria has been met. [facility] 11-19-2022 Note Patient: Shayy mart Procedure Summary Date: 11/19/22 Room / Location: [address] Labor and Delivery Anesthesia Start: 1406 [...] opportunity for questions and acknowledgement of understanding. [facility] 11-19-2022 Note Peripheral Block Time Out: 11/19/2022 3:22 PM Patient location during procedure: Procedural Start time: 11/19/2022 3:21 PM End time: 11/19/2022 3:29 PM Reason for block: at surgeon's request and post-op pain management Staffing Performed: MULCHER OPERATOR Resident/MULCHER OPERATOR: Leny Israel APRN - MULCHER OPERATOR Lucas Fuentes RN Preanesthetic Checklist Completed: patient identified, IV checked, site marked, risks and benefits discussed, surgical consent, monitors and equipment checked, pre-op evaluation and timeout performed Region: [place] Primary: TAP (60ml of Bupivacaine 0.375% with dexamethasone 0.01% with epinephrine 1:200,000 divided evenly bilaterally) Peripheral Block Patient position: supine Prep: ChloraPrep Patient monitoring: heart rate, hospital monitor and continuous pulse ox O2: Room air [...] injection and Local anesthetic injected without difficultyMedications olbPUWTPinwpl-ncivckhudcb-juyetftbo ne (TAP) syringe - Injection 30 mL - 11/19/2022 3:24:00 PM 30 mL - 11/19/2022 3:27:00 PM [facility] 11-19-2022 Note Spinal Block Time Out: 11/19/2022 2:08 PM Patient location during procedure: OR Start time: 11/19/2022 2:12 PM End time: 11/19/2022 2:14 PM Reason for block: primary anesthetic Staffing Performed: MULCHER OPERATOR and SRNA Resident/MULCHER OPERATOR: Kay Self APRN - GRACIA Other anesthesia [...] Free flow CSF. No Heme. No Parathesia [facility] 11-19-2022 Note Patient: Shayy mart Procedure Information Date/Time: 11/19/22 1430 Procedure: DELIVERY (Abdomen) Location: [facility] Labor and Delivery Surgeons: Dulce Manjarrez MD [...] products. 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 NA: Not Applicable: This patient is being delivered outside of the PC-01 range (37x8y-33c3f) for reasons indicated in the medical record. [...] B Strep: unknown Fetus: EFW: 7[facility] Presentation: transverse, head maternal right, spine posterior [...] IBD, Active Cancer, (more content not included)... [facility] 05-28-2022 Evaluation + Plan note Future Scheduled TestsMRI Pelvis Uterine/Ovarian 05/28/22 [facility] 05-23-2022 Hospital Discharge instructions Patient Education 05/23/2022 14:47:42 1-[facility] Discharge Instructions Template (04/2018) [place] SAME DAY SURGERY DISCHARGE INSTRUCTIONS PLEASE FOLLOW [...] us better serve our patients. Form: 1522 [id number]) R: 10/1405/23/2022 14:45:40 Diagnostic Laparoscopy, Care After [...] Follow these instructions at home: Medicines Take egyf-ujr-pypqysh and prescription medicines only as told by [...] and water are not available, use hand watchstander. ?Change your dressing as told by your [...] to keep your urine pale yellow. ?Take vwsr-yti-ntwsvyu or prescription medicines. ?Eat foods that are [...] 06/04/2016 Document Revised: 06/06/2018 Document Reviewed: 12/18/2017 [employer] Patient Education 2020 [employer] Follow Up Care 04/18/2022 14:40:00 With:ALFONSO RAZA MD Address: [address] [place] [address] [place] [phone] When: Unknown Comments:Follow-up with Dr. Raza as scheduled, if you do not have an appointment please call to schedule one. [facility] 05-23-2022 Summary of episode note Discharge Instructions Thank you for allowing [facility] to assist you with your healthcare needs. The following is important discharge information regarding your hospital visit. Your Care Team KAUSHIK ROJO MD Your Diagnosis Post-op pain What to do next Scheduled Follow-Up Appointments Appointment Type When With Where Contact InformationSO OV Post Op 06/05/2022 10:00 AM EST ALFONSO RAZA MD [facility] [address] [place] [phone] Follow Up Appointments Follow Up with ALFONSO RAZA MD When Why: Follow-up with Dr. Raza as scheduled, if you do not have an appointment please call to schedule one. Where: [address] [place] [address] [place] [phone] The Following Activity and Diet Have Been [...] by mouth Every [address] [facility] New docusate (Colace 100 mg oral capsule) 1 cap by mouth Two (2) times a day Duration: 10 Days Refills: [address] [facility] New oxyCODONE (oxyCODONE 5 mg oral tablet ( IMMEDIATE release )) 1 tab(s) by mouth Every 6 hours Post-op pain Duration: [address] [facility] Unchanged multivitamin, ( AD oral tablet) 1 tab(s) by mouth Once a day (in the morning) Pharmacy Information [facility]: [address] [place] [phone] Please take this list to your next [...] us better serve our patients. Form: 1522 ([id number]) R: 10/14 Diagnostic Laparoscopy, Care After This [...] Follow these instructions at home: Medicines Take aqkv-sba-ctnjpww and prescription medicines only as told by [...] and water are not available, use hand watchstander. ? Change your dressing as told by [...] keep your urine pale yellow. ? Take jedh-dit-roubpms or prescription medicines. ? Eat foods that [...] 06/04/2016 Document Revised: 06/06/2018 Document Reviewed: 12/18/2017 [employer] Patient Education 2020 [employer] Additional Information VACCINATE! IT SAVES LIVES! Members of the community who have not yet received the COVID-19 vaccine and would like to receive it can visit one of [facility] vaccine clinics. There are many vaccine clinic locations within the [facility]. For locations and available times, please visit [email or web address] It is important to note that some COVID mobile vaccine clinics are held outdoors and may be canceled in rainy or stormy conditions. To learn more about pediatric vaccinations (ages 5-11), we invite you to visit the [facility] webpage. [email or web address]/page [email or web address]-Exekp-Xqzsswknkgp-Frequently -Asked-Questions.html To learn more about the COVID-19 vaccine, we invite you to visit the [facility] website for a list of frequently asked questions. [email or web address] -and-Visitors/qgybo-Oosyczb-Hkyqyzc tly_Asked-Questions.pdf [facility] [employer] Patient Portal Access Instructions: Stay connected with your healthcare team and access your personal medical information anytime with the [facility] Patient Portal.If you would like a full copy of your medical records, please contact the [facility] Medical Records Department, Saturday through Saturday between 8a.m. and 4:30p.m. Please follow the directions below to access the portal: 1.Access the email account you provided upon registration to the [facility].2.Look for an invitation email from [facility].3.Open the email and access the invitation link: Accept Invitation to [facility]4.Fill in the required talavera to create your [...] you will allow to register on the [facility] [employer] Patient Portal for access to your information. You can also access the [facility] Patient Portal on the [employer] ian. Simply click on Health Records under [...] Call your local pharmacy or go to [email or web address] to find one close to you.3.Make use of household items: Use cat litter or old coffee grounds to dispose medications if other options are not available. Mix your drugs with these household products, seal them in an airtight container and throw it into the garbage. Call [facility]: [phone] to be sure your drugs can be [...] aware that I should contact my doctor. 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 Family History: Breast cancer Grandparent Comments: 04/17/2022 15:12 WILLIET - ALFONSO RAZA MD noted in her late 50s, denies BRCA Procedure history: Tonsillectomy and adenoidectomy ([id number]) on 04/09/2012 at 21 Years. Social History [...] Resp Rate 16 br/min (MAY 23 09:17) RIG050 mmHg (MAY 23 09:17) DBP73 mmHg (MAY 23:17) Measurements from flowsheet : Measurements 05/23/2022 9:17 EST Height 167.8 cm Height in inches 66.1 inch(es) Admission Weight 98.9 kg Weight Lbs 217.6 lb [place] Body Weight 59.44 kg Admission Body Mass [...] Method Explanation, Printed materials Preferred Written Language Latvian Family/Caregiver Prefer Written Language Latvian Preferred Spoken Language Latvian Family/Caregiver Prefer Spoken Language Latvian Surgical Site Infection Prevention SSI FAQ provided, Hand hygiene Pre Procedure/Surgery Education Appropriate expectations, Date/Time of procedure/surgery, Hospital gown requirement worn to OR, Leave valuables, jewelry, wedding ring at home, Meds to take or hold, Responsible goat driver for discharge, Surgical skin prep Ed-Safety Verbalizes/Nonverbally indicates understanding 05/23/2022 9:20 EST Baby A FHR Monitoring Method: Ultrasound 05/23/2022 9:17 EST Height 167.8 cm Height in inches 66.1 inch(es) Admission Weight 98.9 kg Weight Lbs 217.6 lb [place] Body Weight 59.44 kg Admission Body Mass [...] Quadrants Present Skin Temperature Warm Skin Description [employer], Normal for ethnicity Mucous Membrane Color [employer] IV Present Present Neurological Symptoms Patient denies [...] (Modified) 05/23/2022 0:00 EST History and Physical Cardiovascular Disease Specialist Onc H&P (Modified) 05/22/2022 12:59 EST Surgery Scheduled On Date/Time 05/23/2022 10:00 Patient Aware Date/Time Of Surgery Yes Arrival Time the Day of Surgery 05/23/2022 8:00 Patient Aware of Arrival Time Yes Pre-Op Patient Education NPO after midnight, No smoking after midnight, No makeup, No jewelry, Responsible Alliance Party, Aware of surgery location, No ordered medications SN - Preprocedure Comments Spoke with patient, Verbalizes/Nonverbally indicates understanding Admission Note-Nursing Date\Time Correction . Assessment and Plan [place] [employer] Anesthesiologists (ASA) physical status classification: [...] ALESSANDRO YANG MD on 05/23/2022 10:30 AM [facility] 05-20-2022 History and physical note Date of [...] for surgical consultation from Dr. Sonia Mendez OVERHAULER HELPER at [facility] in [facility] for incidentally found to have a 8.2 [...] the lab work, documentation in the EMR, qdyr-ht-omya time and counseling with the patient, and [...] LILY CORRALES MD on 05/20/2022 09:30 AM [facility] Evaluation + Plan note Future Appointments Appointment Date:06/05/2022 10:00:00 AM Scheduled Provider:ALFONSO RAZA MD Location:[facility] Appointment Type:SO OV Post Op [facility] Diagnosis Urinary retention- Primary Unspecified retention of urine Fibroid of cervix [facility] N[facility] No data available for this section [facility] Hospital Discharge instructions No data available for this section [facility] Progress note No data available for this section [facility] Summary Purpose Family History No Family History [...] and wo contrast Adri Cota MD [address] [address] Referral ID Status Reason Start Date Expiration Date V isits Requested Visits Authorized [id number] Pending Review 05/09/2023 05/08/2024 1 1 Specialty Diagnoses / Procedures Referred By Contac t Referred To Contact Urogynecology Diagnoses Urinary retention Procedures [place] OFFICE/OUTPATIENT [facility] 60-74 MINUTES Adri Cota MD [address] [address] Gaby De Jesus DO [address] [place] [address] Referral ID Status Reason Start Date Expiration Date Visits Requested Visits Authorized [id number] Pending Review Specialty Services Required 05/09/2023 05/08/2024 1 1 Additional Source Comments INFORMATION SOURCE (unrecogn ized section and content) DATE CREATED AUTHOR AUTHOR'S ORGANIZ ATION 06/06/2022 [facility] ([place]) DATE CREATED AUTHOR AUTHOR'S ORGANIZ ATION 12/31/2022 [facility] DATE CREATED AUTHOR AUTHOR'S ORGANIZ ATION 05/19/2023 [facility] Care Team (unrecognized sect ion and content) Care Team Personnel Name: KAUSHIK ROJO MD Member Role: Primary Care Physician Address: Address: [facility] [address] [place] [address]- [place] Name: ALFONSO RAZA MD Position: P4 Oncology Provider Med Service: AMB Gynecologic Onc Member Role: OBGYN Address: Address: [address] [place] [address] Gynecology [address] Care Team Related Persons Name: DEANA RODRÍGUEZ Care Team Personnel Name: KAUSHIK ROJO MD Member Role: Primary Care Physician Address: Address: [facility] [address] [place] [address]- [place] Name: ALFONSO RAZA MD Position: P4 Oncology Provider Member Role: OBGYN Address: Address: [address] [place] [address] Gynecology Oncology [place], [place] [address] Care Team Related Persons Name: DEANA RODRÍGUEZ Care Team Personnel Name: KAUSHIK ROJO MD Member Role: Primary Care Physician Address: Address: [facility] [address] [place], [place] [address] Name: ALFONSO RAZA MD Position: P4 Oncology Provider Member Role: OBGYN Address: Address: [address] [place] [address] Gynecology Oncology [place], [place] [address] Care Team Related Persons Name: DEANA RODRÍGUEZ Care Team Personnel Name: KAUSHIK ROJO MD Member Role: Primary Care Physician Address: Address: [facility] [address] [place] [address]- Name: ALFONSO RAZA MD Position: P4 Oncology Provider Member Role: OBGYN Address: Address: [address] [place] [address] Gynecology Oncology [place], [place] [address] Care Team Related Persons Name: DEANA RODRÍGUEZ Reason for Visit (unrecogniz ed section and content) Reason Comments New Patient DR[facility] PULLER-MFM referral- cer vical fibroid Specialty Diagnoses / Procedures Referred By Prabhjot t Referred To Contact Gynecology Diagnoses Intramural leiomyoma of uterus Procedures [place] OFFICE/OUTPATIENT NEW HIGH MDM 60-74 MINUTES Shanta Armstrong, ENTERPRISE RESOURCE PLANNING CONSULTANT - CHIEF TELEPHONE [place] [address] Adri Cota MD [address] [place] [address] Referral ID Status Reason Start Date Expiration Date V isits Requested Visits Authorized [id number] Pending Review 11/26/2022 11/26/2023 1 1 Care Teams (unrecognized sec tion and content) Brand Designer Relationship Specialty Start Date End Date Kaushik Rojo MD [address] [place] [address] PCP - General Geriatric Medicine 03/08/23 Brand Designer Relationship Specialty Start Date End Date Kaushik Rojo MD [address] [place], [place] [id number] PCP - General Geriatric Medicine 03/08/23 FOR [...] BE BASED ON THE PRIMARY CLINICAL RECORDS. [facility]. provides no warranty or guarantee of the accuracy or completeness of information in this document.
[2023-09-06 00:26] LABS: Glucose, Dipstick Normal (Normal); Ketone-Dipstick Negative (Negative); Leukocyte Esterase-Dipstick 25 /ul (Negative); Nitrite-Dipstick Negative (Negative); Occult Blood-Urine 10 /ul (Negative); Protein-Dipstick Negative (Negative); Urine Bilirubin Dipstick Negative (Negative); Urine Urobilinogen Normal (Normal); Urine pH 6.5 (5.0 - 8.0)
[2023-09-06 00:27] LABS: Bacteria 2+ /hpf (None Seen); Color, Urine Yellow (Yellow); Renal Epithelial Cells 0 SEEN /hpf (0-5); Squamous Epithelial Cells - UA 10-25 SEEN /hpf (5-10); Transitional Epithelial - Ur 0 SEEN /hpf (0-5); Urine Clarity Clear (Clear); White Blood Cells 0-5 SEEN /hpf (0-5)
[2023-09-06 00:34] LABS: Anion Gap 6 (5-15); BUN 12 mg/dL (7-18); BUN/Creat Ratio 17.2 RATIO (10-20); Calcium,Total 9.6 mg/dL (8.5-10.1); Chloride 106 mmol/L (98-107); EST Glomerular Filtration Rate 104 mL/min (>60); Est Glom Filt Rate - Afr Amer 126 mL/min (>60); Estimated Creatinine Clearance 142.36 ml/min; Glucose 106 mg/dL (74-106); Potassium 3.9 mmol/L (3.5-5.1); Sodium Level 137 mmol/L (136-145)
[2023-09-06 00:37] LABS: Lactic Acid 1.2 mmol/L (0.4-1.9)
[2023-09-06] MEDS: Cephalexin 250 MG Capsule 500 MG PO (01:25)
[2023-09-06 01:28] VITALS: BP 121/67; PULSE 96; RESP 16; TEMP 36.8; O2SAT 99
== END 2023-09-06 01:30 | disposition home or self-care (01) ==
PROVIDERS: Emergency Provider Emergency Medicine; PCP Family Medicine Geriatric Medicine; Visit Provider Emergency Medicine
DX: N39.0 Urinary tract infection, site not specified (principal); R50.82 Postprocedural fever
CPT/HCPCS: 71046; 80048; 81001; 83605; 85025; 87086; 87088; 99282; A4216

== ENCOUNTER → 2023-09-11 | Outpatient (CLI) | payer OTHER, SELFPAY | END | disposition home or self-care (01) | LOC: LABSPEC 15:58 | PROVIDERS: PCP Family Medicine Geriatric Medicine; Visit Provider Family Medicine Geriatric Medicine | DX: N39.0 Urinary tract infection, site not specified (principal) | CPT/HCPCS: 87077; 87086; 87088 ==

== ENCOUNTER 2024-02-08 21:05 | Outpatient (REF) | payer SELFPAY ==
[2024-02-08 21:07] VITALS: BP 145/79; PULSE 96; RESP 18; TEMP 35.8; O2SAT 96; BMI 40.1
--- NOTE | 2024-02-08 22:02 | EDS_ITS ---
HPI History of Present Illness Chief Complaint: Occup Expose Informant: patient Narrative Narrative: Patient is a 33-year-old female with past medical history frequent headache. 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 She states that after she used the lancet to draw blood from the patient's finger she performed normal protocol where she wiped away the initial blood and then went to squeeze more blood onto the tip of the finger. As she did this the blood squirted and a small amount struck her in the right eye. She denies any history of eye disorder or contact lens use. She states that she has low concern for infection from the exposure but because of the potential presents for evaluation [facility] Medical History (Updated 02/08/24 @ 22:[address] Anselmo sEpinoza, DO) Frequent headaches Home Medications ?Medication ?Instructions ?Recorded ?Last Taken ?Type NK 02/08/24 Unknown History Allergy/AdvReac Type Severity Reaction Status Date / Time Penicillins Allergy Rash Verified 02/08/24 21:06 Surgical History (Updated 09/05/23 @ 23:46 by Wendy Frausto) H/O total hysterectomy Social History Smoking Status: Never smoker [facility] ED Constitutional Constitutional ED: Denies chills or fever(s) Eyes Eyes: Denies blurry vision or change in vision Cardiovascular Cardiovascular: Denies chest pain Respiratory/Chest Respiratory/Chest: Denies cough or dyspnea Gastrointestinal Gastrointestinal: Denies abdominal pain, diarrhea, nausea or vomiting Musculoskeletal Musculoskeletal: Denies myalgias Integumentary Denies rash Neurologic Neurologic: Denies headache(s) Hematologic/Lymphatic Hematologic/Lymphatic: Denies easy bleeding or easy bruising EXAM Physical Exam Const Vital Signs: 02/08/24 21:07 02/08/24 21:33 Temperature 96.5 F L Temperature Source Temporal Pulse Rate 96 Respiratory Rate 18 Respiratory Effort Normal Non-Labored Respiratory Pattern Normal Blood Pressure 145/79 H Blood Pressure Mean 101 Pulse Ox 96 Positive well nourished and well developed General Appearance ED: well developed; Negative for pallor HEENT HEENT Narrative: Normocephalic atraumatic Eyes PERRL and EOMs intact bilaterally General Eye ED: Negative for pale conjunctiva or scleral icterus Neck supple Resp normal respiratory effort and clear to auscultation bilaterally Cardio regular rate and regular rhythm Extremity normal to inspection Neuro oriented x3, CN's II-XII intact bilaterally and no sensory deficits noted Sensorium / Orientation: alert Motor Exam: strength 5/5 throughout Psych mental status grossly normal Skin no rashes or lesions noted and no wounds General Skin Exam: Negative for jaundice or pallor MDM MDM MDM Narrative Medical decision making narrative: Patient reported mild/minimal exposure to a blood product and she has no history of immunosuppression. As a source is known source of blood can be drawn. At this time because the exposure in order to ensure that there is no potential for secondary infection patient will undergo standard postexposure laboratory testing. We discussed starting potential antivirals but the exposure is low risk for blood-borne pathogen and patient does not have history of immunosuppression. Therefore we will hold off on providing antivirals at this time and wait for laboratory studies and only start if they are positive History & Record Review Discussion w/independent historian: Patient Discharge Plan Admission Primary Reason for Your Visit: Blood-borne exposure Attending Provider: Anselmo Espinoza Primary Care Provider: Bladimir Mccarthy Chi Instructions Patient Instructions: ED NEEDLE STICK Health Care Worker Discharge Orders/Prescriptions Prescriptions: No Action NK Referrals / Follow Up: Bladimir Mccarthy Chi, MD [Primary Care Provider] - Disposition Disposition (needs filled in before D/C Order can be placed): Home, Self Care
[2024-02-08 23:02] LABS: HIV - WCH Non-Reactive (Nonreactive); Hepatitis B Surface Antibody Reactive; Hepatitis B Surface Antigen Non-Reactive (Nonreactive); Hepatitis C Antibody Non-Reactive (Nonreactive)
== END 2024-02-08 22:04 | disposition home or self-care (01) ==
LOC: ED 21:05
PROVIDERS: PCP Family Medicine Geriatric Medicine; Visit Provider Emergency Medicine
DX: Z77.21 Contact with and (suspected) exposure to potentially hazardous body fluids (principal)
CPT/HCPCS: 86703; 86706; 86803; 87340

== ENCOUNTER → 2024-03-23 | Outpatient (CLI) | payer OTHER, SELFPAY ==
[2024-03-23 15:24] LABS: Absolute Lymphocyte Count 3.16 X10^3/uL (0.83-4.51); Absolute Neutrophil Count 3.5 X10^3/uL (2.0-7.7); Basophil# 0.03 X10^3/uL; Basophil% 0.4 % (0-1); Eosinophil# 0.08 X10^3/uL; Eosinophils% 1.1 % (0-5); Hemoglobin 13.2 g/dL (12.0-15.0); Lymphocyte # 3.16 X10^3/ul (0.83-4.51); Lymphocyte % 42.8 % (19-41); Mean Corp Hgb Conc 32.2 g/dL (32-36); Mean Corpuscular Hgb 28.1 pg (27.0-32.0); Mean Corpuscular Volume 87.4 fL (81-99); Mean Platelet Vol. 11.1 fl (6.2-12.0); Monocyte# 0.65 X10^3/uL; Monocyte% 8.8 % (0-10); NRBC Flagged by Analyzer 0 % (0-5); Neutrophil # 3.46 X10^3/uL (2.7-7.7); Neutrophil % 46.8 % (47-70); Platelet Count 258 K/mm3 (150-450); RBC Distribution Width CV 13.2 % (11.6-14.6); Red Blood Count 4.69 M/mm3 (4.2-5.4); White Blood Count 7.4 K/mm3 (4.4-11.0)
[2024-03-23 15:44] LABS: AST(SGOT) 19 U/L (15-37); Alanine Aminotransfer ALT/SGPT 42 U/L (13-56); Albumin, Serum 3.6 g/dL (3.2-5.0); Alkaline Phosphatase 123 U/L (45-117); Anion Gap 8 (5-15); BUN 10 mg/dL (7-18); BUN/Creat Ratio 12.5 RATIO (10-20); Calcium,Total 9.3 mg/dL (8.5-10.1); Chloride 107 mmol/L (98-107); Cholesterol 155 mg/dL (200); EST Glomerular Filtration Rate 89 mL/min (>60); Est Glom Filt Rate - Afr Amer 107 mL/min (>60); Globulin 3.7 g/dL (2.2-4.2); Glucose 88 mg/dL (74-106); High Density Lipoprotein 48 mg/dL; Potassium 3.8 mmol/L (3.5-5.1); Protein, Total 7.3 g/dL (6.4-8.2); Sodium Level 140 mmol/L (136-145); Triglycerides 97 mg/dL; Very Low Density Lipoprotein 19 mg/dL (5-40)
== END | disposition home or self-care (01) ==
PROVIDERS: PCP Family Medicine Geriatric Medicine; Referring Provider Family Medicine Geriatric Medicine; Visit Provider Family Medicine Geriatric Medicine
DX: R53.83 Other fatigue (principal); E78.5 Hyperlipidemia, unspecified
CPT/HCPCS: 36415; 80053; 80061; 84443; 85025

== ENCOUNTER → 2025-03-29 | Outpatient (CLI) | payer OTHER, SELFPAY ==
[2025-03-29 15:28] LABS: Hematocrit 39.2 % (37-47); Hemoglobin 13.1 g/dL (12.0-15.0); Immature Granulocytes Count 0.010 X10^3/uL (0.0-0.0); Mean Corp Hgb Conc 33.4 g/dL (32-36); Mean Corpuscular Volume 86.7 fL (81-99); Mean Platelet Vol. 10.5 fl (6.2-12.0); NRBC Flagged by Analyzer 0 % (0-5); Platelet Count 233 K/mm3 (150-450); RBC Distribution Width CV 12.3 % (11.6-14.6); RBC Distribution Width SD 39.0 fl (35.1-43.9); Red Blood Count 4.52 M/mm3 (4.2-5.4); White Blood Count 7.6 K/mm3 (4.4-11.0)
[2025-03-29 16:55] LABS: AST(SGOT) 19 U/L (<=31); Alanine Aminotransfer ALT/SGPT 23 U/L (<=34); Albumin, Serum 4.3 g/dL (3.5-5.0); Alkaline Phosphatase 86 U/L (35-104); Anion Gap 12 (5-15); BUN 12 mg/dL (4-19); BUN/Creat Ratio 19.1 RATIO (10-20); Calcium,Total 9.4 mg/dL (7.6-11.0); Carbon Dioxide 21.9 mmol/L (21.0-32.0); Chloride 104 mmol/L (98-108); Cholesterol 129 mg/dL (<=200); Globulin 2.8 g/dL (2.2-4.2); Glucose 93 mg/dL (70-99); Low Density Lipoprotein Calc. 52 mg/dL; Potassium 3.8 mmol/L (3.3-5.1); Triglycerides 95 mg/dL; Very Low Density Lipoprotein 19 mg/dL (5-40); cholesterol:hdl ratio screen 2.22
== END | disposition home or self-care (01) ==
LOC: LAB 14:44
PROVIDERS: PCP Family Medicine Geriatric Medicine; Referring Provider Family Medicine Geriatric Medicine; Visit Provider Family Medicine Geriatric Medicine
DX: E78.5 Hyperlipidemia, unspecified (principal); R53.83 Other fatigue
CPT/HCPCS: 36415; 80053; 80061; 84443; 85025